=== PATIENT | male | born 1980 | race Caucasian/White ===

== ENCOUNTER 2018-12-08 18:49 | Emergency (ER) | payer OTHER, SELFPAY ==
[~2018-12-08] VITALS: Ht 180.3 cm; Wt 130.9 kg
[~2018-12-08 18:49] MED LIST: AUGM875T27 PO; CELE1CAP4 PO; NEUR600T PO; OXYC-208 PO
[2018-12-08 19:38] LABS: BASO # 0.1 10^3/uL (0.0-0.2); BASO % 0.6 % (0.0-1.0); EOS # 0.3 10^3/uL (0.0-0.5); EOS % 3.1 % (0.0-3.0); HEMATOCRIT 41.8 % (42.0-52.0); HEMOGLOBIN 14.3 g/dl (13.5-17.5); LYMPH % 28.9 % (24.0-44.0); MEAN CORPUSCULAR HEMOGLOBIN 29.7 pg (27.0-33.0); MEAN CORPUSCULAR HGB CONC 34.2 g/dl (32.0-36.5); MEAN CORPUSCULAR VOLUME 86.9 fl (80.0-96.0); MONO # 0.7 10^3/uL (0.0-0.8); MONO % 6.6 % (0.0-5.0); NEUTROPHILS # 6.2 10^3/uL (1.5-8.5); NEUTROPHILS % 60.4 % (36.0-66.0); PLATELET COUNT, AUTOMATED 272 10^3/uL (150-450); RED BLOOD COUNT 4.81 10^6/uL (4.30-6.10); WHITE BLOOD COUNT 10.3 10^3/uL (4.0-10.0)
[2018-12-08] MEDS: GASTROGRAFIN SOLUTION 30ML PO SCH ×2 (19:51→20:24)
[2018-12-08 20:03] LABS: ALBUMIN 3.8 GM/DL (3.2-5.2); ALT/SGPT 38 U/L (12-78); AMYLASE 35 U/L (25-115); BILIRUBIN,DIRECT < 0.1 MG/DL (0.0-0.2); BILIRUBIN,TOTAL 0.3 MG/DL (0.2-1.0); BLOOD UREA NITROGEN 10 MG/DL (7-18); CALCIUM LEVEL 8.8 MG/DL (8.5-10.1); CARBON DIOXIDE LEVEL 27 MEQ/L (21-32); CHLORIDE LEVEL 107 MEQ/L (98-107); CREATININE FOR GFR 0.89 MG/DL (0.70-1.30); GLOMERULAR FILTRATION RATE > 60.0 (>60); GLUCOSE, FASTING 92 MG/DL (70-100); LIPASE 87 U/L (73-393); POTASSIUM SERUM 3.5 MEQ/L (3.5-5.1); SODIUM LEVEL 140 MEQ/L (136-145); TOTAL PROTEIN 7.2 GM/DL (6.4-8.2)
[2018-12-08] MEDS ORDERED: ISOVUE-370 76% 100ML VIAL (Q9967) As Ordered ONE (20:57)
--- NOTE | 2018-12-08 22:24 | REPVR ---
EXAM: CT Abdomen and Pelvis With Contrast EXAM DATE/TIME: 12/08/2018 8:59 PM CLINICAL HISTORY: 38 years old, male; Abdominal pain; Periumbilical; Additional info: Periumbilical, llq pain TECHNIQUE: Imaging protocol: Computed tomography of the abdomen and pelvis with intravenous contrast. Radiation optimization: All CT scans at this facility use at least one of these dose optimization techniques: automated exposure control; mA and/or kV adjustment per patient size (includes targeted exams where dose is matched to clinical indication); or iterative reconstruction. Contrast material: ISOVUE 370; Contrast volume: 100 ml; Contrast route: IV; COMPARISON: CT ABD PELVIS WITH CONTRAST 02/20/2013 7:58 PM FINDINGS: Liver: The liver attenuation is 52 Hounsfield units and the spleen is 79 Hounsfield units. Gallbladder and bile ducts: The gallbladder is contracted with no stones. Pancreas: Normal. No ductal dilation. Spleen: Normal. No splenomegaly. Adrenals: Normal. No mass. Kidneys and ureters: Normal. No hydronephrosis. Stomach and bowel: There are a few sigmoid diverticula without diverticulitis. Appendix: There are no changes of appendicitis. A normal appendix is not seen. Intraperitoneal space: Unremarkable. No free air. No significant fluid collection. Vasculature: Unremarkable. No abdominal aortic aneurysm. Lymph nodes: Mild fat filled right periumbilical hernia with mild surrounding induration and a lymph node measuring 13 x 9 x 11 mm. There is adjacent minimal fat filled umbilical hernia which is compressed toward the left. Bladder: Unremarkable as visualized. Reproductive: Unremarkable as visualized. Bones/joints: Unremarkable. No acute fracture. Soft tissues: See Lymph Nodes Finding. IMPRESSION: 1. Mild fat filled right periumbilical hernia which is new since 02/20/2013. There is surrounding induration and slight induration of the fat within may reflect fat ischemia or infarct. There is a slightly prominent node at the cephalad aspect reactive. There is some associated skin thickening around the umbilicus and cellulitis is not excluded. 2. There are a few sigmoid diverticula without diverticulitis. Electronically signed by: Norbert Escobar On 12/08/2018 22:24:00 PM
[2018-12-08 23:38] VITALS: BP 145/78
== END 2018-12-08 23:39 | disposition home or self-care (01) ==
LOC: M ED 18:49
DX: K42.9 Umbilical hernia without obstruction or gangrene (principal); K57.32 Diverticulitis of large intestine without perforation or abscess without bleeding; Z79.899 Other long term (current) drug therapy
CPT/HCPCS: 74177; 80048; 80076; 81001; 82150; 83690; 85025; 87507; 99284; Q9963; Q9967

== ENCOUNTER → 2019-01-05 | Outpatient (CLI) | payer MEDICAID ==
--- NOTE | 2019-01-05 21:11 | ECGEPIP ---
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
== END ==
LOC: M EKG 10:02
PROVIDERS: ATTEND Anesthesiology
DX: Z01.818 Encounter for other preprocedural examination (principal); G47.30 Sleep apnea, unspecified

== ENCOUNTER 2019-01-09 07:39 | Day surgery (SDC) | payer MEDICAID ==
[~2019-01-09] VITALS: Ht 180.3 cm; Wt 132.9 kg
[~2019-01-09 07:39] MED LIST changes: +LR 1,000 ML IV ONE; +ceFAZolin SOD 2 GM in IV 1 EA IV ONE
[2019-01-09] MEDS ORDERED: BUPIVACAINE LIPOSOME/PF 1.3% 20ML VIAL (13.3MG/ML)(EXPAREL)(C9290 PER1MG) As Ordered ONE (07:51)
[2019-01-09] MEDS ORDERED: LIDOCAINE 1% SDV INJ 30 ML VIAL As Ordered ONE (07:51)
[2019-01-09] MEDS ORDERED: BUPIVACAINE HCL 0.25% 30 ML VIAL As Ordered ONE (07:51)
[2019-01-09] MEDS ORDERED: PROPOFOL 200 MG/20 ML VIAL As Ordered ONE (09:22)
[2019-01-09] MEDS ORDERED: dexameTHASONE 4 MG/ML 1ML VIAL (J1100) As Ordered ONE (09:22)
[2019-01-09] MEDS ORDERED: BUPIVACAINE HCL 0.25% 10 ML VIAL As Ordered ONE (09:22)
[2019-01-09] MEDS ORDERED: fentaNYL 100 MCG/2 ML INJECTION (J3010) As Ordered ONE ×2 (09:22→11:37)
[2019-01-09] MEDS ORDERED: MIDAZOLAM INJ 2 MG/2 ML VIAL (J2250) As Ordered ONE (09:22)
[2019-01-09] MEDS ORDERED: LIDOCAINE 2% INJ 100 MG/5 ML SDV (FOR ANES.) As Ordered ONE (09:22)
[2019-01-09] MEDS ORDERED: ROCURONIUM BROMIDE 50 MG/5 ML VIAL As Ordered ONE ×2 (09:22→09:38)
[2019-01-09] MEDS ORDERED: ONDANSETRON 4MG/2ML VIAL (J2405) As Ordered ONE ×2 (09:33→09:53)
[2019-01-09] MEDS ORDERED: HYDROmorphone HCL 2 MG/ML 1ML VIAL (J1170) As Ordered ONE (09:36)
[2019-01-09] MEDS ORDERED: KETOROLAC 60 MG/2 ML VIAL (J1885) As Ordered ONE (09:53)
[2019-01-09] MEDS ORDERED: SUGAMMADEX SODIUM 500 MG/5 ML VIAL (BRIDION) As Ordered ONE (09:53)
[2019-01-09] MEDS ORDERED: GLYCOPYRROLATE INJ 0.2 MG/ML 2 ML VIAL As Ordered ONE (10:03)
[2019-01-09] MEDS: fentaNYL 100 MCG/2 ML INJECTION (J3010) IV PRN ×4 (11:42→11:57)
[2019-01-09] MEDS ORDERED: ONDANSETRON 4MG/2ML VIAL (J2405) IV PRN ×2 (12:00→17:00)
[2019-01-09] MEDS ORDERED: LR 1,000 ML IV SCH (12:00)
[2019-01-09] MEDS ORDERED: METOCLOPRAMIDE INJ 10MG/2ML VIAL (J2765) IV PRN (12:00)
[2019-01-09] MEDS: PERCOCET 5MG/325MG TAB PO PRN ×2 (12:09→12:38)
--- NOTE | 2019-01-09 12:26 | ROOPDOC ---
[facility] Report Of Operation Report of Operation DATE OF PROCEDURE: 01/09/19 PREPROCEDURE DIAGNOSES: Umbilical hernia, morbid obesity BMI of 40.9. POSTPROCEDURE DIAGNOSES: Umbilical hernia, midline diastases rectus muscle, m orbid obesity. PROCEDURE: Robotic-assisted laparoscopic umbilical hernia repair with placement of preperitoneal mesh (rTAPP). Transabdominal pre-peritoenal plane block (HAKEEM) with Exparel and Marcaine SURGEON: Giovany Olivia MD BASEBALL GLOVE SHAPER: KILO Smyth MS. assisted me with placement of ports, managing the robotic instruments, mesh on the few while I was scrubbed out in the surgeon's console ANESTHESIA: General anesthesia. ESTIMATED BLOOD LOSS: Approximately 10 mL. COMPLICATIONS: None. REMARKS: 38-year-old male BMI 40.9 having more discomfort related to his umbilical hernia, also reports transient incarceration of the hernia with resulting pain PROCEDURE NOTE: Omentum was incarcerated in the umbilical defect. Roughly 2 cm anterior fascial defect was measured after preperitoneal dissection. He also has about a 6-7 cm wide diastases of the midline upper abdominal muscles. A 10 x 10 cm Parietex Progrip mesh was placed in the preperitoneal plane. DESCRIPTION OF PROCEDURE: Patient was given a dose of 2 g Ancef IV preoperatively for wound prophylaxis. He was brought to the operating room and placed supine on the table. Compression boots and teds were placed on both lower extremities for DVT prophylaxis. General endotracheal anesthesia was administered. He was positioned on the table, left arm was tucked, the right arm placed on an arm board. All bony prominences were padded. The abdomen was prepped from xiphoid to pubis and table to table with chlorhexidine. The patient was draped in the usual sterile fashion. Timeout were performed using both preinduction and pre-incision safety checklist to verify correct patient, procedure site and additional clinical information prior to beginning the procedure. Entry into the abdomen done through a small incision on the left upper quadrant area close to the subcostal line close to the anterior axillary line. The fascia was elevated and Veress needle inserted in a controlled fashion. I was having difficulty getting into the right plane inside of the abdomen due to the depth of the patient's subcutaneous tissue. This point I chose to do a direct trocar first entry with an optical 5 mm trocar (Spottlyi flex 5 mm trocar) once as inside the abdomen and began insufflation. It turns out that I was underneath the omentum and it pulled back a little bit get into the correct space and continued insufflating the abdomen. I examined the area underneath the insertion site as well as where the omentum was traversed and there was no bleeding nor any signs of bowel injury. The omentum was being pulled anteriorly because of the presence of the umbilical hernia where there is a tongue of omentum that is incarcerated within the hernia defect.. The abdomen was insufflated to a pressure of 15 mmHg. patient was repositioned slight Trendelenburg tilted towards the right side. The robotic trochars were placed under direct vision as far laterally as we can get above the bowels over the left axillary line with the lowest-most port in front of the anterior superior i liac spine. The previous 5 mm port was replaced with an 8 mm port. The [employer]izra Laura Xi robot tower was then positioned in place to center on these trochars. The trochars were docked to the robot and the camera and instruments installed. I primarily used the forced bipolar forceps on my left hand connected to bipolar cautery and the robotic scissors connected to a monopolar cautery with an 8 mm laparoscope pointed 30 deg upwards. I scrubbed out and to control of the camera and instruments at the surgeon's console. I opened up a preperitoneal pocket on the left side of the abdomen of the about 5 cm away from the umbilicus. This was expanded going towards the umbilical hernia. The preperitoneal fat tissue that was within the hernia defect was reduced and the sac included with it. The peritoneal flap was extended circumferentially to create an adequate space for mesh placement. The hernia defect was measured as 2 x 2 cm. There is noticeable 6 cm diastases above the umbilical hernia defect. I closed the hernia defect along with portion of the diastases roughly 2-3 cms above and below the umbilical cleft with a running suture of 0 Stratafix while reducing the pressure to as low as 10 mmHg. I then have my photo studio assistant trim a 10x10 cm piece of a Parietex Progrip mesh (15x 10 cms) and marked the center of the mesh placement. This was inserted into the abdomen and placed within the pocket abutting the posterior abdominal wall. The mesh was flattened to the anterior abdominal wall centering on the umbilical hernia repair. The pocket was enlarged to accommodate the mesh. Once this is done the peritoneal flap was closed with a running suture of 2-0 V LOC with the abdominal pressure at 12 mmHg.. I inspected the peritoneal flap for any defect during the dissection and a small rent in the peritoneum was repaired with a 3- 0 vicryl suture. I scrubbed back in. I placed roughly about 20 mL mixture of 1/4% Marcaine and Exparel at the preperitoneal space on both sides of the abdomen in between the left costal margin and anterior superior iliac spine under direct visualization of the laparoscope for a transabdominal preperitoneal block. Patient was then repositioned with a slight Trendelenburg positioning and tilted towards the right side to move bowels away from the left sidewall. The instruments and trochars were undocked to the da Laura robot tower. The abdomen was deflated. All ports were removed. The 8 mm trocar sites were closed with 4-0 Monocryl in a subcuticular fashion. Dermabond was used for dressing on top of the incisions. Patient was then promptly awakened, extubated and brought to the recovery room stable. GIOVANY OLIVIA MD Jan 09, 2019 12:26
[2019-01-09] MEDS ORDERED: NORCO, ANEXSIA 5/325MG TABLET (HYDROcodone/ACETAMINOPHEN) PO PRN ×2 (12:30)
[2019-01-09 13:50] VITALS: BP 132/72
[2019-01-09] MEDS ORDERED: KETOROLAC 30 MG/ML VIAL (J1885) IV PRN (17:00)
== END 2019-01-09 13:56 | disposition home or self-care (01) ==
LOC: M SDC 07:39
PROVIDERS: ATTEND Surgery
DX: K42.9 Umbilical hernia without obstruction or gangrene (principal); M62.08 Separation of muscle (nontraumatic), other site; E66.01 Morbid (severe) obesity due to excess calories; G47.30 Sleep apnea, unspecified
CPT/HCPCS: 49652; C1781; C9290; J0690; J1100; J1170; J1885; J2250; J2405; J3010

== ENCOUNTER → 2019-12-12 | Outpatient (CLI) | payer OTHER ==
[~2019-12-12] MED LIST changes: -LR 1,000 ML IV ONE; -ceFAZolin SOD 2 GM in IV 1 EA IV ONE
--- NOTE | 2019-12-26 11:26 | REP ---
LIMITED ABDOMINAL ULTRASOUND CLINICAL: Prior hernia repair with continued pain. TECHNIQUE: Real-time smith scale ultrasound examination using linear high frequency transducer. FINDINGS: Directed ultrasound examination in the periumbilical region at the site of prior umbilical hernia repair demonstrates normal subcutaneous tissue and no evidence for hernia recurrence, fluid collection, hematoma, or obvious abnormality. IMPRESSION: Normal examination without evidence for recurrent hernia or fluid collection/hematoma. MTDD
== END ==
LOC: M RAD 07:55
PROVIDERS: ATTEND Nurse Practitioner Family
DX: S39.91XA Unspecified injury of abdomen, initial encounter (principal); X58.XXXA Exposure to other specified factors, initial encounter; Y92.9 Unspecified place or not applicable; Z87.19 Personal history of other diseases of the digestive system

== ENCOUNTER → 2020-03-02 | Outpatient (REF) | payer MEDICAID ==
[2020-03-02 11:48] LABS: BASO # 0.1 10^3/uL (0.0-0.2); BASO % 0.9 % (0.0-1.0); EOS # 0.3 10^3/uL (0.0-0.5); EOS % 3.9 % (0.0-3.0); HEMATOCRIT 45.6 % (42.0-52.0); HEMOGLOBIN 14.7 g/dl (13.5-17.5); LYMPH # 2.3 10^3/uL (1.5-5.0); LYMPH % 29.3 % (24.0-44.0); MEAN CORPUSCULAR HEMOGLOBIN 28.4 pg (27.0-33.0); MEAN CORPUSCULAR HGB CONC 32.2 g/dl (32.0-36.5); MONO # 0.5 10^3/uL (0.0-0.8); MONO % 6.6 % (0.0-5.0); NEUTROPHILS # 4.6 10^3/uL (1.5-8.5); NEUTROPHILS % 58.7 % (36.0-66.0); PLATELET COUNT, AUTOMATED 287 10^3/uL (150-450); RED BLOOD COUNT 5.18 10^6/uL (4.30-6.10); WHITE BLOOD COUNT 7.9 10^3/uL (4.0-10.0)
[2020-03-02 12:07] LABS: HEMOGLOBIN A1c 5.8 %
[2020-03-02 12:50] LABS: ALBUMIN 3.9 GM/DL (3.2-5.2); ALT/SGPT 53 U/L (12-78); BILIRUBIN,TOTAL 0.3 MG/DL (0.2-1.0); BLOOD UREA NITROGEN 15 MG/DL (7-18); CALCIUM LEVEL 8.8 MG/DL (8.5-10.1); CARBON DIOXIDE LEVEL 27 MEQ/L (21-32); CHLORIDE LEVEL 107 MEQ/L (98-107); CHOLESTEROL LEVEL 226 MG/DL (<200); CHOLESTEROL RISK RATIO 4.808 (<5); CREATININE FOR GFR 0.92 MG/DL (0.70-1.30); GLOMERULAR FILTRATION RATE > 60.0 (>60); GLUCOSE, FASTING 118 MG/DL (70-100); HDL CHOLESTEROL 47 MG/DL (>40); LDL CHOLESTEROL 148 MG/DL (<100); NON-HDL-C 179 MG/DL; POTASSIUM SERUM 4.4 MEQ/L (3.5-5.1); SODIUM LEVEL 141 MEQ/L (136-145); TOTAL 25(OH) VITAMIN D 42.4 NG/ML (30.0-100.0); TOTAL PROTEIN 7.5 GM/DL (6.4-8.2); TRIGLYCERIDES LEVEL 156 MG/DL (<150)
== END ==
LOC: M LAB REF 11:20
PROVIDERS: ATTEND Nurse Practitioner Family
DX: E55.9 Vitamin D deficiency, unspecified (principal); Z13.9 Encounter for screening, unspecified; F41.8 Other specified anxiety disorders; E66.9 Obesity, unspecified

== ENCOUNTER → 2020-07-07 | Outpatient (REF) | payer OTHER ==
[2020-07-07 12:22] LABS: BASO # 0.1 10^3/uL (0.0-0.2); EOS # 0.3 10^3/uL (0.0-0.5); EOS % 4.4 % (0.0-3.0); HEMATOCRIT 44.8 % (42.0-52.0); HEMOGLOBIN 14.8 g/dl (13.5-17.5); LYMPH # 1.9 10^3/uL (1.5-5.0); LYMPH % 27.7 % (24.0-44.0); MEAN CORPUSCULAR HEMOGLOBIN 28.6 pg (27.0-33.0); MEAN CORPUSCULAR VOLUME 86.5 fl (80.0-96.0); MONO # 0.5 10^3/uL (0.0-0.8); MONO % 7.1 % (2.0-8.0); NEUTROPHILS # 4.1 10^3/uL (1.5-8.5); NEUTROPHILS % 59.5 % (36.0-66.0); PLATELET COUNT, AUTOMATED 277 10^3/uL (150-450); RED BLOOD COUNT 5.18 10^6/uL (4.30-6.10); WHITE BLOOD COUNT 6.9 10^3/uL (4.0-10.0)
[2020-07-07 13:42] LABS: ALBUMIN 4.1 GM/DL (3.2-5.2); ALT/SGPT 42 U/L (12-78); BILIRUBIN,TOTAL 0.2 MG/DL (0.2-1.0); BLOOD UREA NITROGEN 17 MG/DL (7-18); CALCIUM LEVEL 9.2 MG/DL (8.5-10.1); CARBON DIOXIDE LEVEL 23 MEQ/L (21-32); CHLORIDE LEVEL 108 MEQ/L (98-107); CHOLESTEROL LEVEL 187 MG/DL (<200); CHOLESTEROL RISK RATIO 3.978 (<5); CREATININE FOR GFR 0.73 MG/DL (0.70-1.30); GLOMERULAR FILTRATION RATE > 60.0 (>60); GLUCOSE, FASTING 115 MG/DL (70-100); HDL CHOLESTEROL 47 MG/DL (>40); LDL CHOLESTEROL 117 MG/DL (<100); NON-HDL-C 140 MG/DL; SODIUM LEVEL 140 MEQ/L (136-145); TOTAL 25(OH) VITAMIN D 26.6 NG/ML (30.0-100.0); TOTAL PROTEIN 7.3 GM/DL (6.4-8.2); TRIGLYCERIDES LEVEL 116 MG/DL (<150)
[2020-07-07 13:44] LABS: HEMOGLOBIN A1c 5.3 %
== END ==
LOC: M LAB REF 11:33
PROVIDERS: ATTEND Nurse Practitioner Family
DX: E66.01 Morbid (severe) obesity due to excess calories (principal); E78.5 Hyperlipidemia, unspecified; F41.3 Other mixed anxiety disorders; R73.03 Prediabetes

== ENCOUNTER → 2020-09-08 | Outpatient (CLI) | payer OTHER ==
[~2020-09-08] MED LIST changes: +D31000TA2; +ZOLO100T
[2020-09-08 16:31] LABS: BASO # 0.1 10^3/uL (0.0-0.2); BASO % 0.6 % (0.0-1.0); EOS # 0.4 10^3/uL (0.0-0.5); EOS % 4.5 % (0.0-3.0); HEMATOCRIT 43.9 % (42.0-52.0); HEMOGLOBIN 14.3 g/dl (13.5-17.5); LYMPH # 3.1 10^3/uL (1.5-5.0); LYMPH % 38.4 % (24.0-44.0); MEAN CORPUSCULAR HEMOGLOBIN 28.5 pg (27.0-33.0); MEAN CORPUSCULAR HGB CONC 32.6 g/dl (32.0-36.5); MEAN CORPUSCULAR VOLUME 87.5 fl (80.0-96.0); MONO # 0.5 10^3/uL (0.0-0.8); MONO % 6.4 % (2.0-8.0); PLATELET COUNT, AUTOMATED 279 10^3/uL (150-450); RED BLOOD COUNT 5.02 10^6/uL (4.30-6.10)
[2020-09-08 17:19] LABS: ALBUMIN 4.2 GM/DL (3.2-5.2); ALT/SGPT 42 U/L (12-78); BILIRUBIN,TOTAL 0.3 MG/DL (0.2-1.0); BLOOD UREA NITROGEN 11 MG/DL (7-18); CALCIUM LEVEL 8.9 MG/DL (8.5-10.1); CARBON DIOXIDE LEVEL 25 MEQ/L (21-32); CHLORIDE LEVEL 107 MEQ/L (98-107); CREATININE FOR GFR 0.72 MG/DL (0.70-1.30); GLOMERULAR FILTRATION RATE > 60.0 (>60); GLUCOSE, FASTING 78 MG/DL (70-100); POTASSIUM SERUM 3.9 MEQ/L (3.5-5.1); SODIUM LEVEL 139 MEQ/L (136-145); TOTAL PROTEIN 7.1 GM/DL (6.4-8.2)
== END ==
LOC: M WUC 13:51
PROVIDERS: ATTEND Nurse Practitioner Family
DX: R10.811 Right upper quadrant abdominal tenderness (principal)

== ENCOUNTER 2021-01-13 09:25 | Emergency (ER) | payer OTHER ==
[~2021-01-13] VITALS: Ht 180.3 cm; Wt 118.6 kg
--- OUTSIDE RECORDS SUMMARY | 2021-01-13 09:32 | CCD ---
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 Vertical Name Role Phone Manasa Reeves NP Unavailable Unavailable Manasa Reeves NP Unavailable Unavailable Manasa Reeves NP Unavailable Unavailable Manasa Reeves NP Unavailable Unavailable Manasa Reeves NP Unavailable Unavailable Reeves, Manasa DIRECTOR OF TEACHER EDUCATION Unavailable Unavailable Reeves, Manasa DIRECTOR OF TEACHER EDUCATION Unavailable Unavailable Reeves, Manasa DIRECTOR OF TEACHER EDUCATION Unavailable Unavailable Reeves, Manasa DIRECTOR OF TEACHER EDUCATION Unavailable Unavailable Reeves, Manasa DIRECTOR OF TEACHER EDUCATION Unavailable Unavailable Reeves, Manasa DIRECTOR OF TEACHER EDUCATION Unavailable Unavailable Reeves, Manasa DIRECTOR OF TEACHER EDUCATION Unavailable Unavailable Reeves, Manasa DIRECTOR OF TEACHER EDUCATION Unavailable Unavailable Abran, Zara SOCIAL SCIENCE PROFESSOR SOCIAL SCIENCE PROFESSOR Unavailable Unavailable [place], A Zara SOCIAL SCIENCE PROFESSOR Unavailable Unavailable [place], A Zara SOCIAL SCIENCE PROFESSOR Unavailable Unavailable [place], A Zara SOCIAL SCIENCE PROFESSOR Unavailable Unavailable [place], A Zara SOCIAL SCIENCE PROFESSOR Unavailable Unavailable [place], A Zara SOCIAL SCIENCE PROFESSOR Unavailable Unavailable [place], A Zara SOCIAL SCIENCE PROFESSOR Unavailable Unavailable [place], A Zara SOCIAL SCIENCE PROFESSOR Unavailable Unavailable [place], A Zara SOCIAL SCIENCE PROFESSOR Unavailable Unavailable [place], A Zara SOCIAL SCIENCE PROFESSOR Unavailable Unavailable [place], A Zara SOCIAL SCIENCE PROFESSOR Unavailable Unavailable [place], A Zara SOCIAL SCIENCE PROFESSOR Unavailable Unavailable [place], A Zraa SOCIAL SCIENCE PROFESSOR Unavailable Unavailable [place], A Zara SOCIAL SCIENCE PROFESSOR Unavailable Unavailable [place], A Zara SOCIAL SCIENCE PROFESSOR Unavailable Unavailable [place], A Zara SOCIAL SCIENCE PROFESSOR Unavailable Unavailable [place], A Zara SOCIAL SCIENCE PROFESSOR Unavailable Unavailable [place], A Zara SOCIAL SCIENCE PROFESSOR Unavailable Unavailable [place], A Zara SOCIAL SCIENCE PROFESSOR Unavailable Unavailable [place], A Zara SOCIAL SCIENCE PROFESSOR Unavailable Unavailable [place], A Zara SOCIAL SCIENCE PROFESSOR Unavailable Unavailable [place], A Zara SOCIAL SCIENCE PROFESSOR Unavailable Unavailable [place], A Zara SOCIAL SCIENCE PROFESSOR Unavailable Unavailable [place], A Zara SOCIAL SCIENCE PROFESSOR Unavailable Unavailable [place], A Zara SOCIAL SCIENCE PROFESSOR Unavailable Unavailable [place], A Zara SOCIAL SCIENCE PROFESSOR Unavailable Unavailable [place], A Zara SOCIAL SCIENCE PROFESSOR Unavailable Unavailable [place], A Zara SOCIAL SCIENCE PROFESSOR Unavailable Unavailable [place], A Zara SOCIAL SCIENCE PROFESSOR Unavailable Unavailable [place], A Zara SOCIAL SCIENCE PROFESSOR Unavailable Unavailable [place], A Zara SOCIAL SCIENCE PROFESSOR Unavailable Unavailable [place], A Zara SOCIAL SCIENCE PROFESSOR Unavailable Unavailable [place], A Zara SOCIAL SCIENCE PROFESSOR Unavailable Unavailable [place], A Zara SOCIAL SCIENCE PROFESSOR Unavailable Unavailable [place], A Zara SOCIAL SCIENCE PROFESSOR Unavailable Unavailable [place], A Zara SOCIAL SCIENCE PROFESSOR Unavailable Unavailable [place], A Zara SOCIAL SCIENCE PROFESSOR Unavailable Unavailable [place], A Zara SOCIAL SCIENCE PROFESSOR Unavailable Unavailable [place], A Zara SOCIAL SCIENCE PROFESSOR Unavailable Unavailable [place], A Zara SOCIAL SCIENCE PROFESSOR Unavailable Unavailable [place], A Zara SOCIAL SCIENCE PROFESSOR Unavailable Unavailable [place], A Zara SOCIAL SCIENCE PROFESSOR Unavailable Unavailable [place], A Zara SOCIAL SCIENCE PROFESSOR Unavailable Unavailable Abran, A Zara SOCIAL SCIENCE PROFESSOR Unavailable Unavailable Abran, A Zara SOCIAL SCIENCE PROFESSOR Unavailable Unavailable Abran, A Zara SOCIAL SCIENCE PROFESSOR Unavailable Unavailable Abran, A Zara SOCIAL SCIENCE PROFESSOR Unavailable Unavailable Abran, A Zara SOCIAL SCIENCE PROFESSOR Unavailable Unavailable Abran, A Zara SOCIAL SCIENCE PROFESSOR Unavailable Unavailable Abran, A Zara SOCIAL SCIENCE PROFESSOR Unavailable Unavailable Abran, A Zara SOCIAL SCIENCE PROFESSOR Unavailable Unavailable Abran, A Zara SOCIAL SCIENCE PROFESSOR Unavailable Unavailable Abran, A Zara SOCIAL SCIENCE PROFESSOR Unavailable Unavailable Abran, A Zara SOCIAL SCIENCE PROFESSOR Unavailable Unavailable Abran, A Zara SOCIAL SCIENCE PROFESSOR Unavailable Unavailable Abran, A Zara SOCIAL SCIENCE PROFESSOR Unavailable Unavailable Abran, A Zara SOCIAL SCIENCE PROFESSOR Unavailable Unavailable Abran, A Zara SOCIAL SCIENCE PROFESSOR Unavailable Unavailable Abran, A Zara SOCIAL SCIENCE PROFESSOR Unavailable Unavailable Abran, A Zara SOCIAL SCIENCE PROFESSOR Unavailable Unavailable Abran, A Zara SOCIAL SCIENCE PROFESSOR Unavailable Unavailable Abran, A Zara SOCIAL SCIENCE PROFESSOR Unavailable Unavailable Abran, A Zara SOCIAL SCIENCE PROFESSOR Unavailable Unavailable Re-disclosure Warning The records that you are about to access may contain information from federally-assisted alcohol or drug abuse programs. If such information is present, then the following federally mandated warning applies: This information has been disclosed to you from records protected by federal confidentiality rules (42 CFR part 2). The federal rules prohibit you from making any further disclosure of this information unless further disclosure is expressly permitted by the written consent of the person to whom it pertains or as otherwise permitted by 42 CFR part 2. A general authorization for the release of medical or other information is NOT sufficient for this purpose. The Federal rules restrict any use of the information to criminally investigate or prosecute any alcohol or drug abuse patient.The records that you are about to access may contain highly sensitive health information, the redisclosure of which is protected by Article 27-F of the [facility] Public Health law. If you continue you may have access to information: Regarding HIV / AIDS; Provided by facilities licensed or operated by the [facility] Office of Mental Health; or Provided by the [facility] Office for People With Developmental Disabilities. If such information is present, then the following [facility] mandated warning applies: This information has been disclosed to you from confidential records which are protected by state law. State law prohibits you from making any further disclosure of this information without the specific written consent of the person to whom it pertains, or as otherwise permitted by law. Any unauthorized further disclosure in violation of state law may result in a fine or senior care sentence or both. A general authorization for the release of medical or other information is NOT sufficient authorization for further disc losure. Family History Family Member Name Family Member Gender Family Member Status Date o f Status Description Data Source(s) Unknown Unknown Problem [facility] ([facility], ) Unknown Unknown Problem [facility] ([facility], ) Unknown Unknown Problem [facility] ([facility], [facility]) Encounters Encounter Providers Location Date Indications Data Source(s ) EDEL Ocampo: [address], [place] [address], Ph. Attender: Zara Osullivan [facility] 09/15/2020 12:00:00 AM EDT [place] ([facility]) Outpatient Attender: Manasa bautista 09/08/2020 01:00:00 PM EDT [facility] ([facility]) OSBALDO Ocampo: [address], [place] [address], Ph. Attender: Zara Osullivan [facility] 07/27/2020 12:00:00 AM EDT [facility]) OSBALDO Ocampo: [address], [place] [address], Ph. Attender: Zara Osullivan [facility] 07/27/2020 12:00:00 AM [facility] OSBALDO Ocampo: [address], [place] [address], Ph. Attender: Zara Osullivan [facility] 07/07/2020 12:00:00 AM EDT [place] ([facility]) Zara Osullivan [facility]: [address], [place] [address], Ph. Attender: Zara Osullivan [facility] 07/07/2020 12:00:00 AM EDT [place] ([facility]) Zara Osullivan [facility]: [address], [place] [address], Ph. Attender: Zara Osullivan [facility] 07/07/2020 12:00:00 AM EDT [place] ([facility]) Zara Osullivan [facility]: [address], [place] [address], Ph. Attender: Zara Osullivan [facility] 03/10/2020 12:00:00 AM EST [place] ([facility]) Zara Osullivan [facility]: [address], [place] [address], Ph. Attender: Zara Osullivan [facility] 03/10/2020 12:00:00 AM EST [place] [facility]) [facility] [address], [place] [address], Ph. Attender: Zara Osullivan [facility] 03/10/2020 12:00:00 AM EST [place] ([facility]) [facility] [address], [place] [address], Ph. Attender: Zara Osullivan [facility] 03/10/2020 12:00:00 AM EST [place] ([facility]) Zara Osullivan [facility]: [address], [place] [address], Ph. Attender: Zara Osullivan [facility] 03/02/2020 12:00:00 AM EST [place] ([facility]) Zara Osullivan [facility]: [address], [place] [address], Ph. Attender: Zara Osullivan [facility] 03/02/2020 12:00:00 AM EST [place] ([facility]) Zara Osullivan [facility]: [address], [place] [address], Ph. Attender: Zara Osullivan [facility] 03/02/2020 12:00:00 AM EST [place] ([facility]) Zara Osullivan [facility]: [address], [place] [address], Ph. Attender: Zara Osullivan [facility] 03/02/2020 12:00:00 AM EST [place] ([facility]) Zara Osullivan [facility]: [address], [place] [address], Ph. Attender: Zara Osullivan [facility] 03/02/2020 12:00:00 AM EST [place] ([facility]) Zara Osullivan [facility]: [address], [place] [address], Ph. Attender: Zara Osullivan [facility] 02/03/2020 12:00:00 AM EST [place] ([facility]) Zara Osullivan [facility]: [address], [place] [address], Ph. Attender: Zara Osullivan [facility] 02/03/2020 12:00:00 AM EST [place] ([facility]) Zara Osullivan [facility]: [address], [place] [address], Ph. Attender: Zara Osullivan [facility] 02/03/2020 12:00:00 AM EST [place] ([facility]) Zara Osullivan [facility]: [address], [place] [address], Ph. Attender: Zara Osullivan [facility] 02/03/2020 12:00:00 AM EST [place] ([facility]) Zara Osullivan [facility]: [address], [place] [address], Ph. Attender: Zara Osullivan [facility] 02/03/2020 12:00:00 AM EST [place] ([facility]) Zara Osullivan [facility]: [address], [place] [address], Ph. Attender: Zara Osullivan [facility] 02/03/2020 12:00:00 AM EST [place] ([facility]) Outpatient Attender: ALEXIA HALE 01/20/2020 02:50:00 P M EDT [facility] Outpatient Attender: ALEXIA HALE 01/13/2020 09:09:01 A M EDT [facility] 01:3 2:00 PM EDT [facility] Outpatient Attender: ALEXIA ROONEY 12/13/2019 08:20:01 A M EDT [facility] 12/10/2019 10:32:00 P M EDT [facility] Outpatient Attender: ALEXIA HAMMERP FP 12/10/2019 09:24:02 A M EDT [facility] Outpatient Attender: ALEXIA HAMMERP [facility] 12/06/2019 03:39:01 P M EDT [facility] Outpatient Attender: ALEXIA HAMMERP [facility] 11/29/2019 11:52:01 A M EDT [facility] Outpatient Attender: Zara HAMMERP [facility] 11/29/2019 11:5 2:00 AM EDT [facility] Outpatient Attender: ALEXIA HAMMERP [facility] 11/22/2019 07:33:01 A M EDT [facility] Outpatient Attender: ALEXIA HALE [facility] 11/15/2019 02:14:00 P M EDT [facility] Outpatient Attender: Zara HAMMERP [facility] 11/15/2019 02:1 3:00 PM EDT [facility]: [facility]/15/2019 08:16:00 A M EDT [facility] Immunizations Vaccine Date Status Description Data Source(s) COVID-19 vaccine, vector-nr, [id number], PF, 0.5 mL 06/03/2020 12:00:00 AM EST completed 06/03/2020 [place] ([facility]) COVID-19 VACCINE [place] 06/03/2020 12:00:00 AM EST completed [facility] Vaccine Series Complete: YESThis Data wa s Submitted to [facility] Via [facility]. Medications Medication Brand Name Start Date Product Form Dose Route Admi nistrative Instructions Pharmacy Instructions Status Indications Reaction Description Data Source(s) 100 mg 10/01/2020 12:00:00 AM EDT tablet 30 TAKE ONE TABLET BY MOUTH EVERY DAY DIRECTED TAKE ONE TABLET BY MOUTH EVERY DAY DIRECTED SOLD: 021 [facility] 100 mg 10/01/2020 12:00:00 AM EDT tablet 30 TAKE ONE TABLET BY MOUTH EVERY DAY DIRECTED TAKE ONE TABLET BY MOUTH EVERY DAY DIRECTED SOLD: 021 [facility] 100 mg 10/01/2020 12:00:00 AM EDT tablet 30 TAKE ONE TABLET BY MOUTH EVERY DAY DIRECTED TAKE ONE TABLET BY MOUTH EVERY DAY DIRECTED SOLD: [facility] 100 mg 10/01/2020 12:00:00 AM EDT tablet 30 TAKE ONE TABLET BY MOUTH EVERY DAY DIRECTED TAKE ONE TABLET BY MOUTH EVERY DAY DIRECTED SOLD: [facility] 500 mg 09/15/2020 12:00:00 AM EDT tablet 14 TAKE 1 TABLET BY MOUTH EVERY 12 HOURS TAKE 1 TABLET BY MOUTH EVERY 12 HOURS SOLD: 09/15/2020 [facility] 100 mg 08/04/2020 12:00:00 AM EDT tablet 30 TAKE ONE TABLET BY MOUTH EVERY DAY DIRECTED TAKE ONE TABLET BY MOUTH EVERY DAY DIRECTED SOLD: [facility] 25 mcg (1,000 unit) 07/28/2020 12:00:00 AM EDT tablet 30 TAKE ONE TABLET BY MOUTH EVERY DAY DIRECTED TAKE ONE TABLET BY MOUTH EVERY DAY DIRECTED SOLD: 09/28/2020 [facility] 25 mcg (1,000 unit) 07/28/2020 12:00:00 AM EDT tablet 30 TAKE ONE TABLET BY MOUTH EVERY DAY DIRECTED TAKE ONE TABLET BY MOUTH EVERY DAY DIRECTED SOLD: 10/31/2020 [facility] 25 mcg (1,000 unit) 07/28/2020 12:00:00 AM EDT tablet 30 TAKE ONE TABLET BY MOUTH EVERY DAY DIRECTED TAKE ONE TABLET BY MOUTH EVERY DAY DIRECTED SOLD: 07/31/2020 [facility] 25 mcg (1,000 unit) 07/28/2020 12:00:00 AM EDT tablet 30 TAKE ONE TABLET BY MOUTH EVERY DAY DIRECTED TAKE ONE TABLET BY MOUTH EVERY DAY DIRECTED SOLD: 01/04/2021 [facility] 100 mg 04/03/2020 12:00:00 AM EST tablet 30 TAKE ONE TABLET BY MOUTH EVERY DAY DIRECTED TAKE ONE TABLET BY MOUTH EVERY DAY DIRECTED SOLD: [facility] 100 mg 04/03/2020 12:00:00 AM EST tablet 30 TAKE ONE TABLET BY MOUTH EVERY DAY DIRECTED TAKE ONE TABLET BY MOUTH EVERY DAY DIRECTED SOLD: [facility] 100 mg 04/03/2020 12:00:00 AM EST tablet 30 TAKE ONE TABLET BY MOUTH EVERY DAY DIRECTED TAKE ONE TABLET BY MOUTH EVERY DAY DIRECTED SOLD: [facility] 100 mg 04/03/2020 12:00:00 AM EST tablet 30 TAKE ONE TABLET BY MOUTH EVERY DAY DIRECTED TAKE ONE TABLET BY MOUTH EVERY DAY DIRECTED SOLD: [facility] 100 mg 04/03/2020 12:00:00 AM EST tablet 30 TAKE ONE TABLET BY MOUTH EVERY DAY DIRECTED TAKE ONE TABLET BY MOUTH EVERY DAY DIRECTED SOLD: [facility] 25 mcg (1,000 unit) 03/11/2020 12:00:00 AM EST tablet 30 TAKE ONE TABLET BY MOUTH EVERY DAY DIRECTED TAKE ONE TABLET BY MOUTH EVERY DAY DIRECTED SOLD: 03/11/2020 [facility] 25 mcg (1,000 unit) 03/11/2020 12:00:00 AM EST tablet 30 TAKE ONE TABLET BY MOUTH EVERY DAY DIRECTED TAKE ONE TABLET BY MOUTH EVERY DAY DIRECTED SOLD: 04/12/2020 [facility] 25 mcg (1,000 unit) 03/11/2020 12:00:00 AM EST tablet 30 TAKE ONE TABLET BY MOUTH EVERY DAY DIRECTED TAKE ONE TABLET BY MOUTH EVERY DAY DIRECTED SOLD: 05/15/2020 [facility] 25 mcg (1,000 unit) 03/11/2020 12:00:00 AM EST tablet 30 TAKE ONE TABLET BY MOUTH EVERY DAY DIRECTED TAKE ONE TABLET BY MOUTH EVERY DAY DIRECTED SOLD: 06/24/2020 [facility] 100 mg 02/04/2020 12:00:00 AM EST tablet 30 TAKE ONE TABLET BY MOUTH EVERY DAY DIRECTED TAKE ONE TABLET BY MOUTH EVERY DAY DIRECTED SOLD: [facility] 1,250 mcg (50,000 unit) 12/10/2019 12:00:00 AM EDT capsule 4 TAKE 1 CAPSULE BY MOUTH ONCE WEEKLY FOR 12 WEEKS THEN CHANGE TO 1000 UNIT TABLET ONCE DAILY THEREAFTER TAKE 1 CAPSULE BY MOUTH ONCE WEEKLY FOR 12 WEEKS THEN CHANGE TO 1000 UNIT TABLET ONCE DAILY THEREAFTER SOLD: 02/02/2020 [facility] 50 mg 12/10/2019 12:00:00 AM EDT tablet 30 TAKE ONE TABLET BY MOUTH EVERY DAY TAKE ONE TABLET BY MOUTH EVERY DAY SOLD: 12/10/2019 [facility] 1,250 mcg (50,000 unit) 12/10/2019 12:00:00 AM EDT capsule 4 TAKE 1 CAPSULE BY MOUTH ONCE WEEKLY FOR 12 WEEKS THEN CHANGE TO 1000 UNIT TABLET ONCE DAILY THEREAFTER TAKE 1 CAPSULE BY MOUTH ONCE WEEKLY FOR 12 WEEKS THEN CHANGE TO 1000 UNIT TABLET ONCE DAILY THEREAFTER SOLD: 12/10/2019 [facility] 1,250 mcg (50,000 unit) 12/10/2019 12:00:00 AM EDT capsule 4 TAKE 1 CAPSULE BY MOUTH ONCE WEEKLY FOR 12 WEEKS THEN CHANGE TO 1000 UNIT TABLET ONCE DAILY THEREAFTER TAKE 1 CAPSULE BY MOUTH ONCE WEEKLY FOR 12 WEEKS THEN CHANGE TO 1000 UNIT TABLET ONCE DAILY THEREAFTER SOLD: 01/06/2020 [facility] 50 mg 12/10/2019 12:00:00 AM EDT tablet 30 TAKE ONE TABLET BY MOUTH EVERY DAY TAKE ONE TABLET BY MOUTH EVERY DAY SOLD: 01/06/2020 [facility] Sertraline 50 MG Oral Tablet sertraline 50 mg tablet TAKE ONE TABLET BY MOUTH EVERY DAY sertraline 50 mg tablet TAKE ONE TABLET BY MOUTH EVERY DAY completed sertraline 50 MG Oral Tablet [place] [facility]) Sertraline 50 MG Oral Tablet sertraline 50 mg tablet TAKE ONE TABLET BY MOUTH EVERY DAY sertraline 50 mg tablet TAKE ONE TABLET BY MOUTH EVERY DAY completed sertraline 50 MG Oral Tablet [place] ([facility]) Ibuprofen 600 MG Oral Tablet ibuprofen 600 mg tablet ibuprofen 6 00 mg tablet completed ibuprofen 600 MG Oral Tablet [place] ([facility]) Sertraline 50 MG Oral Tablet sertraline 50 mg tablet TAKE ONE TABLET BY MOUTH EVERY DAY sertraline 50 mg tablet TAKE ONE TABLET BY MOUTH EVERY DAY completed sertraline 50 MG Oral Tablet [place] ([facility]) Penicillin V Potassium 500 MG Oral Tablet penicillin V potassium 500 mg tablet penicillin V potassium 500 mg tablet c ompleted penicillin V potassium 500 MG Oral Tablet [place] [facility]) Penicillin V Potassium 500 MG Oral Tablet penicillin V potassium 500 mg tablet penicillin V potassium 500 mg tablet c ompleted penicillin V potassium 500 MG Oral Tablet [place] ([facility]) Ibuprofen 600 MG Oral Tablet ibuprofen 600 mg tablet ibuprofen 6 00 mg tablet completed ibuprofen 600 MG Oral Tablet [place] ([facility]) vitamin d3 25 mcg (1000 ut) tabs completed vitamin d3 25 mcg (1000 ut) tabs [place] ([facility]) Penicillin V Potassium 500 MG Oral Tablet penicillin V potassium 500 mg tablet penicillin V potassium 500 mg tablet c ompleted penicillin V potassium 500 MG Oral Tablet [place] ([facility]) Ibuprofen 600 MG Oral Tablet ibuprofen 600 mg tablet ibuprofen 6 00 mg tablet completed ibuprofen 600 MG Oral Tablet [place] ([facility]) Penicillin V Potassium 500 MG Oral Tablet penicillin V potassium 500 mg tablet penicillin V potassium 500 mg tablet c ompleted penicillin V potassium 500 MG Oral Tablet [place] ([facility]) Penicillin V Potassium 500 MG Oral Tablet penicillin V potassium 500 mg tablet penicillin V potassium 500 mg tablet c ompleted penicillin V potassium 500 MG Oral Tablet [place] ([facility]) Ibuprofen 600 MG Oral Tablet ibuprofen 600 mg tablet ibuprofen 6 00 mg tablet completed ibuprofen 600 MG Oral Tablet [place] ([facility]) Cholecalciferol 14282 UNT Oral Capsule c holecalciferol (vitamin D3) 1,250 mcg (50,000 unit) capsule cholecalciferol (vitamin D3) 1,250 mcg ( 50,000 unit) capsule completed cholecalcifero l 1.25 MG Oral Capsule [place] ([facility]) Penicillin V Potassium 500 MG Oral Tablet penicillin V potassium 500 mg tablet penicillin V potassium 500 mg tablet c ompleted penicillin V potassium 500 MG Oral Tablet [place] ([facility]) Ibuprofen 600 MG Oral Tablet ibuprofen 600 mg tablet ibuprofen 6 00 mg tablet completed ibuprofen 600 MG Oral Tablet [place] ([facility]) Sertraline 50 MG Oral Tablet sertraline 50 mg tablet TAKE ONE TABLET BY MOUTH EVERY DAY sertraline 50 mg tablet TAKE ONE TABLET BY MOUTH EVERY DAY completed sertraline 50 MG Oral Tablet [place] ([facility]) Ibuprofen 600 MG Oral Tablet ibuprofen 600 mg tablet ibuprofen 6 00 mg tablet completed ibuprofen 600 MG Oral Tablet [place] ([facility]) Insurance Providers Payer name Policy type / Coverage type Policy ID Covered libertarian ID Covered libertarian's relationship to eubanks Policy Eubanks Plan Information [facility] [id number] SP [id number] [facility] Hmo Blue Option Commercial [id number] Self State Ins Fund() Workers Compensation [id number] Self State Ins Fund() Workers Compensation [id number] Self [id number] [facility] COMMUNITY PLAN MCDO [id number] SP [id number] Medicaid S [id number] MEDICAID [id number] SP [id number] EMEDNY [id number] SP [id number] Managed Care - [facility] Community Plan P [id number] S [id number] Medicaid S [id number] S [id number] Managed Care - [facility] P UNAVAILABLE S UNAVAILABLE UNHC COMMUNITY PLAN MCDHMO [id number] SP [id number] STATE INSURANCE FUND [id number] SP [id number] STATE INSURANCE FUND O [id number] S [id number] SELF PAY O [id number] S [id number] [facility] INS FUND [id number] SP [id number] 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 COMP [id number] SP [id number] SELF PAY UNAVAILABLE SP UNAVAILA BLE [facility](MCA[facility]) P [id number] S [id number] UNHC COMMUNITY PLAN MCDO [id number] SP [id number] [facility] PLAN [facility] [id number] SP [id number] EMEDNY [id number] SP [id number] Self Pay P [id number] O [id number] O UNAVAILABLE UNAVAILA BLE SELF PAY ONLY [id number] SP [id number] MEDICAID [id number] SP [id number] [facility] Health Maintenance Organization (O) [id number] Self [id number] UN COMMUNITY PLAN [facility] [id number] SP [id number] [facility] Health Maintenance Organization (HMO) [id number] Self Problems, Conditions, and Diagnoses Code Display Name Description Problem Type Effective Dates Data Source(s) [id number] Body mass index 30+ - obesity Body Mass Index 30+ - Ob esity Problem 07/31/2020 12:00:00 AM EDTanja VALERIO [facility]) [id number] Body mass index 30+ - obesity Body Mass Index 30+ - Ob esity Problem 07/31/2020 12:00:00 AM EDT [place] ([facility]) [id number] Upper abdominal pain, unspecified Upper abdominal pain , unspecified 12/10/2019 10:30:01 PM EDT [facility] [facility] [id number] Hyperlipidemia, unspecified Hyperlipidemia, unspecifie d 12/10/2019 10:30:01 PM EDT [facility] R73.03 Prediabetes Prediabetes 12/10/2019 10:30:01 PM EDT [facility] 268.9 vitamin D deficiency vitamin D deficiency 12/09 09:22:40 AM EDT [facility] V65.8 Person consulting for explanation of exa mination or test findings Person consulting for explanation of examination or test findings 12/10/2019 09:22:40 AM EDT [facility] S39.91xA Unspecified injury of abdomen, initial e ncounter Unspecified injury of abdomen, initial encounter 12/10/2019 09:22:40 AM EDT [facility] [id number] Patient asked to attend Patient Asked to Attend [facility] 12/10/2019 12:00:00 AM EDT [place] ([facility]) [id number] Injury of trunk Injury of Trunk Problem 12/10/2019 12:0 0:00 AM EDT [facility]) [id number] Pain Pain Problem 12/10/2019 12:00:00 AM ED T [facility]) [id number] Prediabetes Prediabetes Problem 12/10/2019 12:00:00 AM EDT [place] ([facility]) [id number] Hyperlipidemia Hyperlipidemia Problem 12/10/2019 12:00: 00 AM EDT [place] ([facility]) [id number] Vitamin D deficiency Vitamin D Deficiency Problem 12/10/2019 12:00:00 AM EDT [place] ([facility]) [id number] Patient asked to attend Patient Asked to Attend [facility] 12/10/2019 12:00:00 AM EDT [place] ([facility]) [id number] Injury of trunk Injury of Trunk Problem 12/10/2019 12:0 0:00 AM EDT [facility]) [id number] Pain Pain Problem 12/10/2019 12:00:00 AM ED T [place] ([facility]) [id number] Prediabetes Prediabetes Problem 12/10/2019 12:00:00 AM EDT [place] ([facility]) [id number] Hyperlipidemia Hyperlipidemia Problem 12/10/2019 12:00: 00 AM EDT [place] ([facility]) 43010352 Vitamin D deficiency Vitamin D Deficiency Problem 12/10/2019 12:00:00 AM EDT [place] ([facility]) [id number] Patient asked to attend Patient Asked to Attend Proble m 12/10/2019 12:00:00 AM EDT [place] ([facility]) [id number] Injury of trunk Injury of Trunk Problem 12/10/2019 12:0 0:00 AM EDT [place] ([facility]) [id number] Pain Pain Problem 12/10/2019 12:00:00 AM ED T [place] ([facility]) [id number] Prediabetes Prediabetes Problem 12/10/2019 12:00:00 AM EDT [place] ([facility]) 12991710 Hyperlipidemia Hyperlipidemia Problem 12/10/2019 12:00: 00 AM EDT [place] ([facility]) 93047810 Vitamin D deficiency Vitamin D Deficiency Problem 12/10/2019 12:00:00 AM EDT [place] ([facility]) 300.02 GENERALIZED ANXIETY DISORDER GENERALIZED ANXIETY DISOR TRACY 11/15/2019 02:12:27 PM EDT [facility] 300.01 PANIC DISORDER PANIC DISORDER 11/15/2019 02:12: 27 PM EDT [facility] [id number] Panic disorder Panic Disorder Problem 11/15/2019 12:00: 00 AM EDT [place] ([facility]) 91901946 Generalized anxiety disorder Generalized Anxiety Disor tracy Problem 11/15/2019 12:00:00 AM EDT [place] ([facility]) [id number] Panic disorder Panic Disorder Problem 11/15/2019 12:00: 00 AM EDT [place] ([facility]) [id number] Generalized anxiety disorder Generalized Anxiety Disor tracy Problem 11/15/2019 12:00:00 AM EDT [place] ([facility]) [id number] Panic disorder Panic Disorder Problem 11/15/2019 12:00: 00 AM EDT [place] ([facility]) 91680838 Generalized anxiety disorder Generalized Anxiety Disor tracy Problem 11/15/2019 12:00:00 AM EDT [place] ([facility]) Surgeries/Procedures No Information Results ID Date Data Source [id number] 09/09/2020 10:05:00 PM EDT [place] ([facility]) Name Value Range Interpretation Code Description Data Juliette rce(s) Supporting Document(s) D-dimer quant < 270 <500 D-dimer Quant [place] ( [facility]) ID Date Data Source [id number] 09/08/2020 01:54:00 PM EDT [facility] ([facility]) Name Value Range Interpretation Code Description Data Juliette rce(s) Supporting Document(s) Glucose, Fasting 78 mg/dL 70-100 [facility] ([facility], [facility]) Blood Urea Nitrogen 11 mg/dL 7-18 [facility] ([facility], [facility]) Creatinine For GFR 0.72 mg/dL 0.70-1.30 [facility] ([facility]) Glomerular Filtration Rate [facility] <content>Units are mL/min/1.73 m2</content>
<content></content>
<content>Chronic Kidney Disease Staging per NKF:</content>
<content></content>
<content>Stage I & II GFR >=60 Normal to Mildly Decreased</content>
<content>Stage III GFR 30-59 Moderately Decreased</content>
<content>Stage IV GFR 15-29 Severely Decreased</content>
<content>Stage V GFR <15 Very Little GFR Left</content>
<content>ESRD GFR <15 on PRESS OPERATOR APPRENTICE</content>
<content></content> Sodium Level 139 meq/L 136-145 [facility] ([facility], [facility]) Chloride Level 107 meq/L 98-107 [facility] ([facility], [facility]) Potassium Serum 3.9 meq/L 3.5-5.1 [facility] ([facility], [facility]) Carbon Dioxide Level 25 meq/L 21-32 [facility] ( [facility]) Anion Gap 7 meq/L 8-16 [facility] ([facility], [facility]) Calcium Level 8.9 mg/dL 8.5-10.1 [facility] ([facility], [facility]) Ast/Sgot 24 U/L 7-37 [facility] ([facility], [facility]) Alt/SGPT 42 U/L 12-78 [facility] ([facility], [facility]) Alkaline Phosphatase 98 U/L 45-117 [facility] ( [facility], [facility]) Bilirubin,Total 0.3 mg/dL 0.2-1.0 [facility] ([facility], [facility]) Total Protein 7.1 GM/DL 6.4-8.2 [facility] ([facility], [facility]) Albumin 4.2 GM/DL 3.2-5.2 [facility] ([facility], [facility]) Albumin/Globulin Ratio 1.4 [facility] ([facility], [facility]) ID Date Data Source [id number] 09/08/2020 01:54:00 PM EDT [facility] ([facility], [facility]) Name Value Range Interpretation Code Description Data Juliette rce(s) Supporting Document(s) Red Blood Count 5.02 10 4.30-6.10 [facility] ([facility], [facility]) White Blood Count 8.0 10 4.0-10.0 [facility] ([facility], [facility]) Hemoglobin 14.3 g/dL 13.5-17.5 [facility] ([facility], [facility]) Mean Corpuscular Volume 87.5 fl 80.0-96.0 M [facility] ([facility], [facility]) Hematocrit 43.9 % 42.0-52.0 [facility] ([facility], [facility]) Mean Corpuscular Hemoglobin 28.5 pg 27.0-33.0 [facility] ([facility], [facility]) Mean Corpuscular HGB Conc 32.6 g/dL 32.0-36.5 [facility] ([facility], [facility]) Red Cell Distribution Width 12.6 % 11.5-14.5 [facility] ([facility], [facility]) Platelet Count, Automated 279 10 150-450 [facility] ([facility], [facility]) [place] % 6.4 % 2.0-8.0 [facility] ([facility], [facility]) Lymph % 38.4 % 24.0-44.0 [facility] ([facility], [facility]) Neutrophils % 50.0 % 36.0-66.0 [facility] ([facility], [facility]) Eos % 4.5 % 0.0-3.0 [facility] ([facility], [facility]) Baso % 0.6 % 0.0-1.0 [facility] ([facility], [facility]) Immature Granulocyte % 0.1 % 0-3.0 [facility] ([facility], [facility]) Nucleated Red Blood Cell % 0.0 % 0-0 [facility] ([facility], [facility]) Neutrophils # 4.0 10 1.5-8.5 [facility] ([facility], [facility]) [place] # 0.5 10 0.0-0.8 [facility] ([facility], [facility]) Lymph # 3.1 10 1.5-5.0 [facility] ([facility], [facility]) Baso # 0.1 10 0.0-0.2 [facility] ([facility], [facility]) Eos # 0.4 10 0.0-0.5 [facility] ([facility], [facility]) ID Date Data Source [id number] 09/08/2020 01:08:00 PM EDT [facility] ([facility], [facility]) Name Value Range Interpretation Code Description Data Juliette rce(s) Supporting Document(s) Bacteria identified in Urine by Culture Laboratory test result [facility] ([facility], [facility]) No rx ID Date Data Source [id number] 07/07/2020 08:24:00 AM EDT [place] ([facility]) Name Value Range Interpretation Code Description Data Juliette rce(s) Supporting Document(s) Hemoglobin A1c/Hemoglobin.total in Blood 5.3 % Hemoglobin a1C [place] ([facility]) estimated average glucose 105 mg/dL 60-110 Estimated Average Glucose [place] ([facility]) ID Date Data Source [id number] 07/07/2020 08:24:00 AM EDT [place] ([facility]) Name Value Range Interpretation Code Description Data Juliette rce(s) Supporting Document(s) total 25(oh) vitamin D 26.6 NG/mL 30.0-100.0 Below low normal T otal 25(Oh) Vitamin D [place] ([facility]) ID Date Data Source [id number] 07/07/2020 08:24:00 AM EDT [place] ([facility]) Name Value Range Interpretation Code Description Data Juliette rce(s) Supporting Document(s) cholesterol level 187 mg/dL <200 Cholesterol Level [place] ([facility]) triglycerides level 116 mg/dL <150 Triglycerides Le thee [place] ([facility]) non-HDL-C 140 mg/dL Non-hdl-c [place] ([facility]) Cholesterol in LDL [Mass/volume] in Serum or Plasma 117 mg/dL <100 Above high normal LDL Cholesterol [place] ([facility]) HDL cholesterol 47 mg/dL >40 HDL Cholesterol [facility] [place] ([facility]) cholesterol risk ratio <5 Cholesterol R isk Ratio [place] ([facility]) ID Date Data Source [id number] 07/07/2020 08:24:00 AM [facility] Name Value Range Interpretation Code Description Data Juliette rce(s) Supporting Document(s) glucose, fasting 115 mg/dL 70-100 Above high normal Glucose, Fas ting [place] ([facility]) blood urea nitrogen 17 mg/dL 7-18 Blood Urea Nitro gen [place] ([facility]) creatinine for GFR 0.73 mg/dL 0.70-1.30 Creatinine for GF R [place] ([facility]) potassium serum 4.0 mEq/L 3.5-5.1 Potassium Serum [facility] [place] ([facility]) glomerular filtration rate > 60.0 >60 Glomerula r Filtration Rate [place] ([facility]) sodium level 140 mEq/L 136-145 Sodium Level [place] ([facility]) chloride level 108 mEq/L 98-107 Above high normal Chloride Level [place] ([facility]) anion gap 9 mEq/L 8-16 Anion Gap [place] ([facility]) carbon dioxide level 23 mEq/L 21-32 Carbon Dioxide Level [place] ([facility]) calcium level 9.2 mg/dL 8.5-10.1 Calcium Level [place] ( [facility]) ALT/SGPT 42 U/L 12-78 ALT/SGPT [place] ([facility]) AST/SGOT 19 U/L 7-37 AST/SGOT [place] ([facility]) bilirubin,total 0.2 mg/dL 0.2-1.0 Bilirubin,total [facility] [place] ([facility]) alkaline phosphatase 101 U/L 45-117 Alkaline Phosph atase [place] ([facility]) total protein 7.3 gm/dL 6.4-8.2 Total Protein [place] ( [facility]) albumin/globulin ratio Albumin/globu blake Ratio [place] ([facility]) albumin 4.1 gm/dL 3.2-5.2 Albumin [place] ([facility]) ID Date Data Source [id number] 07/07/2020 08:24:00 AM EDT [place] ([facility]) Name Value Range Interpretation Code Description Data Juliette rce(s) Supporting Document(s) white blood count 6.9 10 4.0-10.0 White Blood Count [place] ([facility]) red blood count 5.18 10 4.30-6.10 Red Blood Count [facility] ([facility]) hematocrit 44.8 % 42.0-52.0 Hematocrit [place] ([facility]) hemoglobin 14.8 g/dL 13.5-17.5 Hemoglobin [place] ([facility]) mean corpuscular volume 86.5 fL 80.0-96.0 Mean Corpusc ular Volume [place] ([facility]) mean corpuscular hemoglobin 28.6 pg 27.0-33.0 Mean Cor puscular Hemoglobin [place] ([facility]) mean corpuscular HGB conc 33.0 g/dL 32.0-36.5 Mean Corpu scular HGB Conc [place] ([facility]) neutrophils % 59.5 % 36.0-66.0 Neutrophils % [place] ( [facility]) platelet count, automated 277 10 150-450 Platelet C ount, Automated [place] ([facility]) red cell distribution width 12.6 % 11.5-14.5 Red Cell Distribution Width [place] ([facility]) mono % 7.1 % 2.0-8.0 [place] % [place] ([facility]) lymph % 27.7 % 24.0-44.0 Lymph % [place] ([facility]) eos % 4.4 % 0.0-3.0 Above high normal Eos % [place] ([facility]) immature granulocyte % 0.3 % 0-3.0 Immature Gran ulocyte % [place] ([facility]) baso % 1.0 % 0.0-1.0 Baso % [place] ([facility]) nucleated red blood cell % 0.0 % 0-0 Nucleated Red Blood Cell % [place] ([facility]) neutrophils # 4.1 10 1.5-8.5 Neutrophils # [place] ( [facility]) eos # 0.3 10 0.0-0.5 Eos # [place] ([facility]) lymph # 1.9 10 1.5-5.0 Lymph # [place] ([facility]) mono # 0.5 10 0.0-0.8 [place] # [place] ([facility]) baso # 0.1 10 0.0-0.2 Baso # [place] ([facility]) ID Date Data Source [id number] 07/07/2020 08:24:00 AM EDT [place] ([facility]) Name Value Range Interpretation Code Description Data Juliette rce(s) Supporting Document(s) Hemoglobin A1c/Hemoglobin.total in Blood 5.3 % Hemoglobin a1C [place] ([facility]) estimated average glucose 105 mg/dL 60-110 Estimated Average Glucose [place] ([facility]) ID Date Data Source [id number] 07/07/2020 08:24:00 AM EDT [place] ([facility]) Name Value Range Interpretation Code Description Data Juliette rce(s) Supporting Document(s) total 25(oh) vitamin D 26.6 NG/mL 30.0-100.0 Below low normal T otal 25(Oh) Vitamin D [place] ([facility]) ID Date Data Source [id number] 07/07/2020 08:24:00 AM EDT [place] ([facility]) Name Value Range Interpretation Code Description Data Juliette rce(s) Supporting Document(s) cholesterol level 187 mg/dL <200 Cholesterol Level [place] ([facility]) triglycerides level 116 mg/dL <150 Triglycerides Le thee [place] ([facility]) HDL cholesterol 47 mg/dL >40 HDL Cholesterol [facility] ([facility]) Cholesterol in LDL [Mass/volume] in Serum or Plasma 117 mg/dL <100 Above high normal LDL Cholesterol [place] ([facility]) non-HDL-C 140 mg/dL Non-hdl-c [place] ([facility]) cholesterol risk ratio <5 Cholesterol R isk Ratio [place] ([facility]) ID Date Data Source [id number] 07/07/2020 08:24:00 AM EDT [place] ([facility]) Name Value Range Interpretation Code Description Data Juliette rce(s) Supporting Document(s) glucose, fasting 115 mg/dL 70-100 Above high normal Glucose, Fas ting [place] ([facility]) creatinine for GFR 0.73 mg/dL 0.70-1.30 Creatinine for GF R [place] ([facility]) glomerular filtration rate > 60.0 >60 Glomerula r Filtration Rate [place] ([facility]) blood urea nitrogen 17 mg/dL 7-18 Blood Urea Nitro gen [place] ([facility]) sodium level 140 mEq/L 136-145 Sodium Level [place] ([facility]) chloride level 108 mEq/L 98-107 Above high normal Chloride Level [place] ([facility]) potassium serum 4.0 mEq/L 3.5-5.1 Potassium Serum [facility] ([facility]) anion gap 9 mEq/L 8-16 Anion Gap [place] ([facility]) carbon dioxide level 23 mEq/L 21-32 Carbon Dioxide Level [place] ([facility]) calcium level 9.2 mg/dL 8.5-10.1 Calcium Level [place] ( [facility]) AST/SGOT 19 U/L 7-37 AST/SGOT [place] ([facility]) ALT/SGPT 42 U/L 12-78 ALT/SGPT [place] ([facility]) alkaline phosphatase 101 U/L 45-117 Alkaline Phosph atase [place] ([facility]) total protein 7.3 gm/dL 6.4-8.2 Total Protein [place] ( [facility]) bilirubin,total 0.2 mg/dL 0.2-1.0 Bilirubin,total [facility] ([facility]) albumin 4.1 gm/dL 3.2-5.2 Albumin [place] ([facility]) albumin/globulin ratio Albumin/globu blake Ratio [place] ([facility]) ID Date Data Source [id number] 07/07/2020 08:24:00 AM EDT [place] ([facility]) Name Value Range Interpretation Code Description Data Juliette rce(s) Supporting Document(s) white blood count 6.9 10 4.0-10.0 White Blood Count [place] ([facility]) red blood count 5.18 10 4.30-6.10 Red Blood Count [facility] [place] ([facility]) hemoglobin 14.8 g/dL 13.5-17.5 Hemoglobin [place] ([facility]) hematocrit 44.8 % 42.0-52.0 Hematocrit [place] ([facility]) mean corpuscular volume 86.5 fL 80.0-96.0 Mean Corpusc ular Volume [place] ([facility]) mean corpuscular HGB conc 33.0 g/dL 32.0-36.5 Mean Corpu scular HGB Conc [place] ([facility]) red cell distribution width 12.6 % 11.5-14.5 Red Cell Distribution Width [place] ([facility]) mean corpuscular hemoglobin 28.6 pg 27.0-33.0 Mean Cor puscular Hemoglobin [place] ([facility]) platelet count, automated 277 10 150-450 Platelet C ount, Automated [place] ([facility]) neutrophils % 59.5 % 36.0-66.0 Neutrophils % [place] ( [facility]) lymph % 27.7 % 24.0-44.0 Lymph % [place] ([facility]) mono % 7.1 % 2.0-8.0 [place] % [place] ([facility]) eos % 4.4 % 0.0-3.0 Above high normal Eos % [place] ([facility]) nucleated red blood cell % 0.0 % 0-0 Nucleated Red Blood Cell % [place] ([facility]) baso % 1.0 % 0.0-1.0 Baso % [place] ([facility]) immature granulocyte % 0.3 % 0-3.0 Immature Gran ulocyte % [place] ([facility]) mono # 0.5 10 0.0-0.8 [place] # [place] ([facility]) lymph # 1.9 10 1.5-5.0 Lymph # [place] ([facility]) neutrophils # 4.1 10 1.5-8.5 Neutrophils # [place] ( [facility]) eos # 0.3 10 0.0-0.5 Eos # [place] ([facility]) baso # 0.1 10 0.0-0.2 Baso # [place] ([facility]) ID Date Data Source [id number] 03/02/2020 08:49:00 AM EST [place] ([facility]) Name Value Range Interpretation Code Description Data Juliette rce(s) Supporting Document(s) total 25(oh) vitamin D 42.4 NG/mL 30.0-100.0 Total 25(Oh) Vitamin D [place] ([facility]) ID Date Data Source [id number] 03/02/2020 08:49:00 AM EST [place] ([facility]) Name Value Range Interpretation Code Description Data Juliette rce(s) Supporting Document(s) triglycerides level 156 mg/dL <150 Above high normal Triglycer ides Level [place] ([facility]) Cholesterol in LDL [Mass/volume] in Serum or Plasma 148 mg/dL <100 Above high normal LDL Cholesterol [place] ([facility]) HDL cholesterol 47 mg/dL >40 HDL Cholesterol [facility] ([facility]) cholesterol level 226 mg/dL <200 Above high normal Cholesterol Level [place] ([facility]) non-HDL-C 179 mg/dL Non-hdl-c [place] ([facility]) cholesterol risk ratio <5 Cholesterol R isk Ratio [place] ([facility]) ID Date Data Source [id number] 03/02/2020 08:49:00 AM EST [place] ([facility]) Name Value Range Interpretation Code Description Data Juliette rce(s) Supporting Document(s) creatinine for GFR 0.92 mg/dL 0.70-1.30 Creatinine for GF R [place] ([facility]) glomerular filtration rate > 60.0 >60 Glomerula r Filtration Rate [place] ([facility]) glucose, fasting 118 mg/dL 70-100 Above high normal Glucose, Fas ting [place] ([facility]) blood urea nitrogen 15 mg/dL 7-18 Blood Urea Nitro gen [place] ([facility]) chloride level 107 mEq/L 98-107 Chloride Level [place] ([facility]) sodium level 141 mEq/L 136-145 Sodium Level [place] ([facility]) carbon dioxide level 27 mEq/L 21-32 Carbon Dioxide Level [place] ([facility]) potassium serum 4.4 mEq/L 3.5-5.1 Potassium Serum [facility] ([facility]) ALT/SGPT 53 U/L 12-78 ALT/SGPT [place] ([facility]) AST/SGOT 18 U/L 7-37 AST/SGOT [place] ([facility]) calcium level 8.8 mg/dL 8.5-10.1 Calcium Level [place] ( [facility]) anion gap 7 mEq/L 8-16 Below low normal Anion Gap [place] ( [facility]) albumin 3.9 gm/dL 3.2-5.2 Albumin [place] ([facility]) bilirubin,total 0.3 mg/dL 0.2-1.0 Bilirubin,total [facility] ([facility]) alkaline phosphatase 105 U/L 45-117 Alkaline Phosph atase [place] ([facility]) total protein 7.5 gm/dL 6.4-8.2 Total Protein [place] ( [facility]) albumin/globulin ratio Albumin/globu blake Ratio [place] ([facility]) ID Date Data Source [id number] 03/02/2020 08:49:00 AM EST [place] ([facility]) Name Value Range Interpretation Code Description Data Juliette rce(s) Supporting Document(s) Hemoglobin A1c/Hemoglobin.total in Blood 5.8 % Hemoglobin a1C [place] ([facility]) estimated average glucose 120 mg/dL 60-110 Above high norm al Estimated Average Glucose [place] ([facility]) ID Date Data Source [id number] 03/02/2020 08:49:00 AM EST [place] ([facility]) Name Value Range Interpretation Code Description Data Juliette rce(s) Supporting Document(s) white blood count 7.9 10 4.0-10.0 White Blood Count [place] ([facility]) red blood count 5.18 10 4.30-6.10 Red Blood Count [facility] ([facility]) hematocrit 45.6 % 42.0-52.0 Hematocrit [place] ([facility]) hemoglobin 14.7 g/dL 13.5-17.5 Hemoglobin [place] ([facility]) mean corpuscular volume 88.0 fL 80.0-96.0 Mean Corpusc ular Volume [place] ([facility]) red cell distribution width 12.4 % 11.5-14.5 Red Cell Distribution Width [place] ([facility]) mean corpuscular hemoglobin 28.4 pg 27.0-33.0 Mean Cor puscular Hemoglobin [place] ([facility]) mean corpuscular HGB conc 32.2 g/dL 32.0-36.5 Mean Corpu scular HGB Conc [place] ([facility]) platelet count, automated 287 10 150-450 Platelet C ount, Automated [place] ([facility]) lymph % 29.3 % 24.0-44.0 Lymph % [place] ([facility]) mono % 6.6 % 0.0-5.0 Above high normal [place] % [place] ([facility]) neutrophils % 58.7 % 36.0-66.0 Neutrophils % [place] ( [facility]) eos % 3.9 % 0.0-3.0 Above high normal Eos % [place] ([facility]) baso % 0.9 % 0.0-1.0 Baso % [place] ([facility]) immature granulocyte % 0.6 % 0-3.0 Immature Gran ulocyte % [place] ([facility]) neutrophils # 4.6 10 1.5-8.5 Neutrophils # [place] ( [facility]) lymph # 2.3 10 1.5-5.0 Lymph # [place] ([facility]) nucleated red blood cell % 0.0 % 0-0 Nucleated Red Blood Cell % [place] ([facility]) mono # 0.5 10 0.0-0.8 [place] # [place] ([facility]) baso # 0.1 10 0.0-0.2 Baso # [place] ([facility]) eos # 0.3 10 0.0-0.5 Eos # [place] ([facility]) ID Date Data Source [id number] 03/02/2020 08:49:00 AM EST [place] ([facility]) Name Value Range Interpretation Code Description Data Juliette rce(s) Supporting Document(s) total 25(oh) vitamin D 42.4 NG/mL 30.0-100.0 Total 25(Oh) Vitamin D [place] ([facility]) ID Date Data Source [id number] 03/02/2020 08:49:00 AM EST [place] ([facility]) Name Value Range Interpretation Code Description Data Juliette rce(s) Supporting Document(s) triglycerides level 156 mg/dL <150 Above high normal Triglycer ides Level [place] ([facility]) cholesterol level 226 mg/dL <200 Above high normal Cholesterol Level [place] ([facility]) Cholesterol in LDL [Mass/volume] in Serum or Plasma 148 mg/dL <100 Above high normal LDL Cholesterol [place] ([facility]) HDL cholesterol 47 mg/dL >40 HDL Cholesterol [place] NA ([facility]) non-HDL-C 179 mg/dL Non-hdl-c [place] ([facility]) cholesterol risk ratio <5 Cholesterol R isk Ratio [place] ([facility]) ID Date Data Source [id number] 03/02/2020 08:49:00 AM EST [place] ([facility]) Name Value Range Interpretation Code Description Data Juliette rce(s) Supporting Document(s) glucose, fasting 118 mg/dL 70-100 Above high normal Glucose, Fas ting [place] ([facility]) blood urea nitrogen 15 mg/dL 7-18 Blood Urea Nitro gen [place] ([facility]) glomerular filtration rate > 60.0 >60 Glomerula r Filtration Rate [place] ([facility]) creatinine for GFR 0.92 mg/dL 0.70-1.30 Creatinine for GF R [place] ([facility]) sodium level 141 mEq/L 136-145 Sodium Level [place] ([facility]) carbon dioxide level 27 mEq/L 21-32 Carbon Dioxide Level [place] ([facility]) chloride level 107 mEq/L 98-107 Chloride Level [place] ([facility]) potassium serum 4.4 mEq/L 3.5-5.1 Potassium Serum [place] ([facility]) anion gap 7 mEq/L 8-16 Below low normal Anion Gap [place] ( [facility]) AST/SGOT 18 U/L 7-37 AST/SGOT [place] ([facility]) ALT/SGPT 53 U/L 12-78 ALT/SGPT [place] ([facility]) calcium level 8.8 mg/dL 8.5-10.1 Calcium Level [place] ( [facility]) total protein 7.5 gm/dL 6.4-8.2 Total Protein [place] ( [facility]) alkaline phosphatase 105 U/L 45-117 Alkaline Phosph atase [place] ([facility]) albumin 3.9 gm/dL 3.2-5.2 Albumin [place] ([facility]) bilirubin,total 0.3 mg/dL 0.2-1.0 Bilirubin,total [place] ([facility]) albumin/globulin ratio Albumin/globu blake Ratio [place] ([facility]) ID Date Data Source [id number] 03/02/2020 08:49:00 AM EST [place] ([facility]) Name Value Range Interpretation Code Description Data Juliette rce(s) Supporting Document(s) Hemoglobin A1c/Hemoglobin.total in Blood 5.8 % Hemoglobin a1C [place] ([facility]) estimated average glucose 120 mg/dL 60-110 Above high norm al Estimated Average Glucose [place] ([facility]) ID Date Data Source [id number] 03/02/2020 08:49:00 AM EST [place] ([facility]) Name Value Range Interpretation Code Description Data Juliette rce(s) Supporting Document(s) white blood count 7.9 10 4.0-10.0 White Blood Count [place] ([facility]) red blood count 5.18 10 4.30-6.10 Red Blood Count [place] ([facility]) mean corpuscular volume 88.0 fL 80.0-96.0 Mean Corpusc ular Volume [place] ([facility]) hematocrit 45.6 % 42.0-52.0 Hematocrit [place] ([facility]) hemoglobin 14.7 g/dL 13.5-17.5 Hemoglobin [place] ([facility]) mean corpuscular hemoglobin 28.4 pg 27.0-33.0 Mean Cor puscular Hemoglobin [place] ([facility]) red cell distribution width 12.4 % 11.5-14.5 Red Cell Distribution Width [place] ([facility]) mean corpuscular HGB conc 32.2 g/dL 32.0-36.5 Mean Corpu scular HGB Conc [place] ([facility]) lymph % 29.3 % 24.0-44.0 Lymph % [place] ([facility]) platelet count, automated 287 10 150-450 Platelet C ount, Automated [place] ([facility]) mono % 6.6 % 0.0-5.0 Above high normal [place] % [place] ([facility]) neutrophils % 58.7 % 36.0-66.0 Neutrophils % [place] ( [facility]) baso % 0.9 % 0.0-1.0 Baso % [place] ([facility]) immature granulocyte % 0.6 % 0-3.0 Immature Gran ulocyte % [place] ([facility]) eos % 3.9 % 0.0-3.0 Above high normal Eos % [place] ([facility]) nucleated red blood cell % 0.0 % 0-0 Nucleated Red Blood Cell % [place] ([facility]) lymph # 2.3 10 1.5-5.0 Lymph # [place] ([facility]) mono # 0.5 10 0.0-0.8 [place] # [place] ([facility]) neutrophils # 4.6 10 1.5-8.5 Neutrophils # [place] ( [facility]) baso # 0.1 10 0.0-0.2 Baso # [place] ([facility]) eos # 0.3 10 0.0-0.5 Eos # [place] ([facility]) ID Date Data Source [id number] 03/02/2020 08:49:00 AM EST [place] ([facility]) Name Value Range Interpretation Code Description Data Juliette rce(s) Supporting Document(s) total 25(oh) vitamin D 42.4 NG/mL 30.0-100.0 Total 25(Oh) Vitamin D [place] ([facility]) ID Date Data Source [id number] 03/02/2020 08:49:00 AM EST [place] ([facility]) Name Value Range Interpretation Code Description Data Juliette rce(s) Supporting Document(s) triglycerides level 156 mg/dL <150 Above high normal Triglycer ides Level [place] ([facility]) cholesterol level 226 mg/dL <200 Above high normal Cholesterol Level [place] ([facility]) HDL cholesterol 47 mg/dL >40 HDL Cholesterol [place] ([facility]) Cholesterol in LDL [Mass/volume] in Serum or Plasma 148 mg/dL <100 Above high normal LDL Cholesterol [place] ([facility]) cholesterol risk ratio <5 Cholesterol R isk Ratio [place] ([facility]) non-HDL-C 179 mg/dL Non-hdl-c [place] ([facility]) ID Date Data Source [id number] 03/02/2020 08:49:00 AM EST [place] ([facility]) Name Value Range Interpretation Code Description Data Juliette rce(s) Supporting Document(s) glucose, fasting 118 mg/dL 70-100 Above high normal Glucose, Fas ting [place] ([facility]) blood urea nitrogen 15 mg/dL 7-18 Blood Urea Nitro gen [place] ([facility]) creatinine for GFR 0.92 mg/dL 0.70-1.30 Creatinine for GF R [place] ([facility]) sodium level 141 mEq/L 136-145 Sodium Level [place] ([facility]) glomerular filtration rate > 60.0 >60 Glomerula r Filtration Rate [place] ([facility]) potassium serum 4.4 mEq/L 3.5-5.1 Potassium Serum [place] ([facility]) chloride level 107 mEq/L 98-107 Chloride Level [place] ([facility]) carbon dioxide level 27 mEq/L 21-32 Carbon Dioxide Level [place] ([facility]) calcium level 8.8 mg/dL 8.5-10.1 Calcium Level [place] ( [facility]) anion gap 7 mEq/L 8-16 Below low normal Anion Gap [place] ( [facility]) AST/SGOT 18 U/L 7-37 AST/SGOT [place] ([facility]) ALT/SGPT 53 U/L 12-78 ALT/SGPT [place] ([facility]) alkaline phosphatase 105 U/L 45-117 Alkaline Phosph atase [place] ([facility]) bilirubin,total 0.3 mg/dL 0.2-1.0 Bilirubin,total [place] ([facility]) albumin 3.9 gm/dL 3.2-5.2 Albumin [place] ([facility]) total protein 7.5 gm/dL 6.4-8.2 Total Protein [place] ( [facility]) albumin/globulin ratio Albumin/globu blake Ratio [place] ([facility]) ID Date Data Source [id number] 03/02/2020 08:49:00 AM EST [place] ([facility]) Name Value Range Interpretation Code Description Data Juliette rce(s) Supporting Document(s) estimated average glucose 120 mg/dL 60-110 Above high norm al Estimated Average Glucose [place] ([facility]) Hemoglobin A1c/Hemoglobin.total in Blood 5.8 % Hemoglobin a1C [place] ([facility]) ID Date Data Source [id number] 03/02/2020 08:49:00 AM EST [place] ([facility]) Name Value Range Interpretation Code Description Data Juliette rce(s) Supporting Document(s) white blood count 7.9 10 4.0-10.0 White Blood Count [place] ([facility]) red blood count 5.18 10 4.30-6.10 Red Blood Count [place] ([facility]) hematocrit 45.6 % 42.0-52.0 Hematocrit [place] ([facility]) hemoglobin 14.7 g/dL 13.5-17.5 Hemoglobin [place] ([facility]) mean corpuscular volume 88.0 fL 80.0-96.0 Mean Corpusc ular Volume [place] ([facility]) mean corpuscular HGB conc 32.2 g/dL 32.0-36.5 Mean Corpu scular HGB Conc [place] ([facility]) mean corpuscular hemoglobin 28.4 pg 27.0-33.0 Mean Cor puscular Hemoglobin [place] ([facility]) red cell distribution width 12.4 % 11.5-14.5 Red Cell Distribution Width [place] ([facility]) platelet count, automated 287 10 150-450 Platelet C ount, Automated [place] ([facility]) neutrophils % 58.7 % 36.0-66.0 Neutrophils % [place] ( [facility]) lymph % 29.3 % 24.0-44.0 Lymph % [place] ([facility]) mono % 6.6 % 0.0-5.0 Above high normal [place] % [place] ([facility]) eos % 3.9 % 0.0-3.0 Above high normal Eos % [place] ([facility]) immature granulocyte % 0.6 % 0-3.0 Immature Gran ulocyte % [place] ([facility]) baso % 0.9 % 0.0-1.0 Baso % [place] ([facility]) nucleated red blood cell % 0.0 % 0-0 Nucleated Red Blood Cell % [place] ([facility]) lymph # 2.3 10 1.5-5.0 Lymph # [place] ([facility]) neutrophils # 4.6 10 1.5-8.5 Neutrophils # [place] ( [facility]) mono # 0.5 10 0.0-0.8 [place] # [place] ([facility]) eos # 0.3 10 0.0-0.5 Eos # [place] ([facility]) baso # 0.1 10 0.0-0.2 Baso # [place] ([facility]) ID Date Data Source [id number] 03/02/2020 08:49:00 AM EST [place] ([facility]) Name Value Range Interpretation Code Description Data Juliette rce(s) Supporting Document(s) total 25(oh) vitamin D 42.4 NG/mL 30.0-100.0 Total 25(Oh) Vitamin D [place] ([facility]) ID Date Data Source [id number] 03/02/2020 08:49:00 AM EST [place] ([facility]) Name Value Range Interpretation Code Description Data Juliette rce(s) Supporting Document(s) cholesterol level 226 mg/dL <200 Above high normal Cholesterol Level [place] ([facility]) triglycerides level 156 mg/dL <150 Above high normal Triglycer ides Level [place] ([facility]) Cholesterol in LDL [Mass/volume] in Serum or Plasma 148 mg/dL <100 Above high normal LDL Cholesterol [place] ([facility]) HDL cholesterol 47 mg/dL >40 HDL Cholesterol [place] ([facility]) non-HDL-C 179 mg/dL Non-hdl-c [place] ([facility]) cholesterol risk ratio <5 Cholesterol R isk Ratio [place] ([facility]) ID Date Data Source [id number] 03/02/2020 08:49:00 AM EST [place] ([facility]) Name Value Range Interpretation Code Description Data Juliette rce(s) Supporting Document(s) glucose, fasting 118 mg/dL 70-100 Above high normal Glucose, Fas ting [place] ([facility]) creatinine for GFR 0.92 mg/dL 0.70-1.30 Creatinine for GF R [place] ([facility]) blood urea nitrogen 15 mg/dL 7-18 Blood Urea Nitro gen [place] ([facility]) sodium level 141 mEq/L 136-145 Sodium Level [place] ([facility]) glomerular filtration rate > 60.0 >60 Glomerula r Filtration Rate [place] ([facility]) chloride level 107 mEq/L 98-107 Chloride Level [place] ([facility]) carbon dioxide level 27 mEq/L 21-32 Carbon Dioxide Level [place] ([facility]) potassium serum 4.4 mEq/L 3.5-5.1 Potassium Serum [place] ([facility]) ALT/SGPT 53 U/L 12-78 ALT/SGPT [place] ([facility]) anion gap 7 mEq/L 8-16 Below low normal Anion Gap [place] ( [facility]) calcium level 8.8 mg/dL 8.5-10.1 Calcium Level [place] ( [facility]) AST/SGOT 18 U/L 7-37 AST/SGOT [place] ([facility]) alkaline phosphatase 105 U/L 45-117 Alkaline Phosph atase [place] ([facility]) albumin/globulin ratio Albumin/globu blake Ratio [place] ([facility]) bilirubin,total 0.3 mg/dL 0.2-1.0 Bilirubin,total [place] ([facility]) albumin 3.9 gm/dL 3.2-5.2 Albumin [place] ([facility]) total protein 7.5 gm/dL 6.4-8.2 Total Protein [place] ( [facility]) ID Date Data Source [id number] 03/02/2020 08:49:00 AM EST [place] ([facility]) Name Value Range Interpretation Code Description Data Juliette rce(s) Supporting Document(s) estimated average glucose 120 mg/dL 60-110 Above high norm al Estimated Average Glucose [place] ([facility]) Hemoglobin A1c/Hemoglobin.total in Blood 5.8 % Hemoglobin a1C [place] ([facility]) ID Date Data Source [id number] 03/02/2020 08:49:00 AM EST [place] ([facility]) Name Value Range Interpretation Code Description Data Juliette rce(s) Supporting Document(s) white blood count 7.9 10 4.0-10.0 White Blood Count [place] ([facility]) mean corpuscular volume 88.0 fL 80.0-96.0 Mean Corpusc ular Volume [place] ([facility]) red blood count 5.18 10 4.30-6.10 Red Blood Count [place] ([facility]) hematocrit 45.6 % 42.0-52.0 Hematocrit [place] ([facility]) hemoglobin 14.7 g/dL 13.5-17.5 Hemoglobin [place] ([facility]) mean corpuscular HGB conc 32.2 g/dL 32.0-36.5 Mean Corpu scular HGB Conc [place] ([facility]) platelet count, automated 287 10 150-450 Platelet C ount, Automated [place] ([facility]) red cell distribution width 12.4 % 11.5-14.5 Red Cell Distribution Width [place] ([facility]) mean corpuscular hemoglobin 28.4 pg 27.0-33.0 Mean Cor puscular Hemoglobin [place] ([facility]) neutrophils % 58.7 % 36.0-66.0 Neutrophils % [place] ( [facility]) lymph % 29.3 % 24.0-44.0 Lymph % [place] ([facility]) mono % 6.6 % 0.0-5.0 Above high normal [place] % [place] ([facility]) immature granulocyte % 0.6 % 0-3.0 Immature Gran ulocyte % [place] ([facility]) baso % 0.9 % 0.0-1.0 Baso % [place] ([facility]) eos % 3.9 % 0.0-3.0 Above high normal Eos % [place] ([facility]) nucleated red blood cell % 0.0 % 0-0 Nucleated Red Blood Cell % [place] ([facility]) eos # 0.3 10 0.0-0.5 Eos # [place] ([facility]) lymph # 2.3 10 1.5-5.0 Lymph # [place] ([facility]) neutrophils # 4.6 10 1.5-8.5 Neutrophils # [place] ( [facility]) mono # 0.5 10 0.0-0.8 [place] # [place] ([facility]) baso # 0.1 10 0.0-0.2 Baso # [place] ([facility]) ID Date Data Source [id number] 03/02/2020 08:49:00 AM EST [place] ([facility]) Name Value Range Interpretation Code Description Data Juliette rce(s) Supporting Document(s) total 25(oh) vitamin D 42.4 NG/mL 30.0-100.0 Total 25(Oh) Vitamin D [place] ([facility]) ID Date Data Source [id number] 03/02/2020 08:49:00 AM EST [place] ([facility]) Name Value Range Interpretation Code Description Data Juliette rce(s) Supporting Document(s) triglycerides level 156 mg/dL <150 Above high normal Triglycer ides Level [place] ([facility]) non-HDL-C 179 mg/dL Non-hdl-c [place] ([facility]) Cholesterol in LDL [Mass/volume] in Serum or Plasma 148 mg/dL <100 Above high normal LDL Cholesterol [place] ([facility]) HDL cholesterol 47 mg/dL >40 HDL Cholesterol [place] ([facility]) cholesterol level 226 mg/dL <200 Above high normal Cholesterol Level [place] ([facility]) cholesterol risk ratio <5 Cholesterol R isk Ratio [place] ([facility]) ID Date Data Source [id number] 03/02/2020 08:49:00 AM EST [place] ([facility]) Name Value Range Interpretation Code Description Data Juliette rce(s) Supporting Document(s) glucose, fasting 118 mg/dL 70-100 Above high normal Glucose, Fas ting [place] ([facility]) blood urea nitrogen 15 mg/dL 7-18 Blood Urea Nitro gen [place] ([facility]) sodium level 141 mEq/L 136-145 Sodium Level [place] ([facility]) glomerular filtration rate > 60.0 >60 Glomerula r Filtration Rate [place] ([facility]) creatinine for GFR 0.92 mg/dL 0.70-1.30 Creatinine for GF R [place] ([facility]) potassium serum 4.4 mEq/L 3.5-5.1 Potassium Serum [place] ([facility]) anion gap 7 mEq/L 8-16 Below low normal Anion Gap [place] ( [facility]) calcium level 8.8 mg/dL 8.5-10.1 Calcium Level [place] ( [facility]) chloride level 107 mEq/L 98-107 Chloride Level [place] ([facility]) carbon dioxide level 27 mEq/L 21-32 Carbon Dioxide Level [place] ([facility]) AST/SGOT 18 U/L 7-37 AST/SGOT [place] ([facility]) ALT/SGPT 53 U/L 12-78 ALT/SGPT [place] ([facility]) bilirubin,total 0.3 mg/dL 0.2-1.0 Bilirubin,total [place] ([facility]) alkaline phosphatase 105 U/L 45-117 Alkaline Phosph atase [place] ([facility]) albumin 3.9 gm/dL 3.2-5.2 Albumin [place] ([facility]) total protein 7.5 gm/dL 6.4-8.2 Total Protein [place] ( [facility]) albumin/globulin ratio Albumin/globu blake Ratio [place] ([facility]) ID Date Data Source [id number] 03/02/2020 08:49:00 AM EST [place] ([facility]) Name Value Range Interpretation Code Description Data Juliette rce(s) Supporting Document(s) estimated average glucose 120 mg/dL 60-110 Above high norm al Estimated Average Glucose [place] ([facility]) Hemoglobin A1c/Hemoglobin.total in Blood 5.8 % Hemoglobin a1C [place] ([facility]) ID Date Data Source [id number] 03/02/2020 08:49:00 AM EST [place] ([facility]) Name Value Range Interpretation Code Description Data Juliette rce(s) Supporting Document(s) white blood count 7.9 10 4.0-10.0 White Blood Count [place] ([facility]) hemoglobin 14.7 g/dL 13.5-17.5 Hemoglobin [place] ([facility]) red blood count 5.18 10 4.30-6.10 Red Blood Count [place] ([facility]) hematocrit 45.6 % 42.0-52.0 Hematocrit [place] ([facility]) mean corpuscular volume 88.0 fL 80.0-96.0 Mean Corpusc ular Volume [place] ([facility]) mean corpuscular HGB conc 32.2 g/dL 32.0-36.5 Mean Corpu scular HGB Conc [place] ([facility]) mean corpuscular hemoglobin 28.4 pg 27.0-33.0 Mean Cor puscular Hemoglobin [place] ([facility]) red cell distribution width 12.4 % 11.5-14.5 Red Cell Distribution Width [place] ([facility]) lymph % 29.3 % 24.0-44.0 Lymph % [place] ([facility]) platelet count, automated 287 10 150-450 Platelet C ount, Automated [place] ([facility]) neutrophils % 58.7 % 36.0-66.0 Neutrophils % [place] ( [facility]) eos % 3.9 % 0.0-3.0 Above high normal Eos % [place] ([facility]) mono % 6.6 % 0.0-5.0 Above high normal [place] % [place] ([facility]) baso % 0.9 % 0.0-1.0 Baso % [place] ([facility]) immature granulocyte % 0.6 % 0-3.0 Immature Gran ulocyte % [place] ([facility]) neutrophils # 4.6 10 1.5-8.5 Neutrophils # [place] ( [facility]) nucleated red blood cell % 0.0 % 0-0 Nucleated Red Blood Cell % [place] ([facility]) lymph # 2.3 10 1.5-5.0 Lymph # [place] ([facility]) eos # 0.3 10 0.0-0.5 Eos # [place] ([facility]) baso # 0.1 10 0.0-0.2 Baso # [place] ([facility]) mono # 0.5 10 0.0-0.8 [place] # [place] ([facility]) ID Date Data Source [id number] 12/10/2019 08:22:13 AM EDT [facility] Measurements & CalculationsHeight: 70 inches (5 ft. 10 in.) 177.80 cm Weight: 303 pounds 6 oz. 137.90 kg Body Mass Index (BMI): 43.69BMI Interpretation: Morbidly ObeseBody Surface Area (BSA): 2.49Weight Management Education Done (Nutrition/Physical Activity)Vital SignsTemperature: 98.6FPulse Rate: 89 beats/minuteRespiratory Rate: 14 respirations/minuteBlood Pressure: 134/87 O2 Saturation: 96% Vital Signs performed by: Adri Sexton LPN, December 10, 2019 8:27 AMVital Signs performed by: Adri Sexton LPN, December 10, 2019 8:27 AMMultiple Vital SignsInitial BP: 144/89Vitals #2BP: 134/87 (primary)Initial Intake Information From: patientRoom #: 11Infectious Disease / Travel ScreeningRecent travel for you or any close contacts? NoHave you had any close contact with anyone diagnosed with or under investigation for COVID-19 (coronavirus)? NoFever? NoRespiratory symptoms: cough, cold, congestion, shortness of breath, difficulty breathing? NoLoss of smell? NoLoss of taste? NoSmoking, Tobacco, Vaping or Smoke Exposure StatusSmoke Status: never smokerTobacco Use: NoDo you vape? NoHealthcare HistorySince your last office visit...Have you been admitted to the hospital? NoHave you been to an emergency room (ER) or urgent care clinic? NoHave you seen another healthcare provider? NoHave you seen a dentist? Yes - MccueIntake performed by: Adri Sexton LPN, December 10, 2019 8:30 AMRate Your HealthIn general, would you say your health is? Very GoodPain AssessmentAre you currently having any pain which... You wo uld like your provider to address? Yes Affects your activity level? YesDepression Screening - PHQ-2Over the last two weeks, have you... Had little interest or pleasure in doing things? Not at all Been feeling down, depressed, or hopeless? Not at all PHQ-2 Score: 0Anxiety Screening - JAMEY-2Over the last two weeks, have you been... Feeling nervous, anxious, or on edge? Several days Unable to stop or control worrying? More than half the days JAMEY- 2 Score: 3Generalized Anxiety Disorder 7-Item Screening (JAMEY-7)Answer Guide:0 = Not at all1 = Several days2 = Over half the days3 = Nearly every dayOver the last 2 weeks, how often have you been bothered by the following problems?Feeling nervous, anxious, or on edge: 1Not being able to stop or control worryinWorrying too much about different things: 0Trouble relaxinBeing so restless that it's hard to sit still: 2Becoming easily annoyed or irritable: 1Feeling afraid as if something awful might happen: 0Answer Guide:0 = Not difficult at all1 = Somewhat difficult2 = Very difficult3 = Extremely difficultHow difficult have these made it for you to do your work, take care of things at home, or get along with other people? 2GAD-7 Screening Results JAMEY-2 Score: 3GAD-7 Score: 8Functional Impairment: Very difficultRecommendation: Mild anxietyPain AssessmentPain ScaleNumeric Rating Scale: 5 / 10Location: abdomenDuration: 1 1/2 week Frequency: DailyCharacter/Quality: aching, burning, sharp, dull and pressureIs the pain radiating? NoScreening, Brief Intervention, & Referral to Treatment (SBIRT)Pre-Screening Questions How many times have you have 5 or more drinks in a day? 0How many times have you used an illegal drug or used a prescription medication for a non-medical reason? 0Performed by: Adri Sexton LPN, December 10, 2019 8:34 AMPatient History Medical History:hospitalized for tonsillitis and strep 2013Surgical History:appendix removal 2012Hernia repair 2018Family History:tonsil cancer - (uncle)Diabetes (Father)Hypertension ([facility])Social/Personal History: Chief Complaintfollow-up visit lab results room 11History of Present Illness (HPI)39 YO male here for follow up on labs. C/O pain in Abdomen area due injury to area after son "climbed on " abdomen. Pt states felt a "ripping" at site. Previous Hernia surgery 2018. Pt states in Therapy with Cynthia but still panic attacks daily. Pt would like to try medicat ions for his anxiety. Pt concerned with pain to mid abdomen. Pt states pain started about two weeks ago. pt states pain started after his 2 yo son 30 pounds climbed on abdomen. Pt states had herna surgery 12/2018, will obtain Ultra sound for eval . Pt denies other concerns today. HPI performed by: Zara HALE, December 10, 2019 8:55 AMTransitions of Care InboundProblem ReviewProblem List was reviewed and/or updated during this visit.Medication Reconciliation & ReviewMedication List was reviewed and/or updated during this visit, including review of any [id number] medications, herbal therapies, and/or supplements.Allergy ReviewAllergy List was reviewed and/or updated during this visit.Adult Preventive CareProvider Calculated and Reviewed all Clinical Protocols for patient today. Labs/Meds/Other Counseling-Nutrition and Physical Activity:BMI Interpretation: Morbidly Obese (12/10/2019) Counseling: Done (12/10/2019) Physical Activity: Done (12/10/2019)Review of Systems General: Denies loss of appetite, chills, dizziness, fatigue, fever, continued fever, headache, feeling ill, sweats, night sweats, sleep disturbances, weight loss. Eyes: Denies blurring of vision, double vision, irritation, discharge, vision loss, eye pain, eye swelling, droopy eyelid, sensitivity to light, redness, itching. Ears/Nose/Throat: Denies earache, ear discharge, ringing in ears, decreased hearing, nasal congestion, nosebleeds, runny nose, sore throat, hoarseness, difficulty swallowing, dry mouth, tooth pain, bleeding gums, swollen glands. Cardiovascular: Denies chest pain, palpitations, feeling faint, trouble breathing w/exertion, SOB upon lying down, SOB at night, peripheral edema, elevated blood pressure, decreased heart rate. Respiratory: Denies cough, difficulty breathing, shortness of breath, excessive sputum, coughing up blood, wheezing, chest pain. Gastrointestinal: Complains of pain or discomfort, abdominal pain. Denies nausea, vomiting, bleeding, burning, itching, irritati on, cramps, diarrhea, constipation. mid abdominal pain. Genitourinary: Denies urinary incontinence, pain with urination, burning with urination, urinary frequency, urinary hesitancy, urinary urgency, urinary urgency at night, incomplete emptying, blood in urine. Musculoskeletal: Denies back pain, joint pain, leg pain, other pain-see comments, joint swelling, body aches, muscle aches, muscle cramps, muscle weakness, stiffness, recent injury. Skin: Denies rash, hives, redness, itching, dryness, nail changes, suspicious lesions, athlete's foot, rash on palms, rash on bottom of feet. Neurologic: Denies muscle impairment, weakness, numbness/tingling, seizures, slurred speech, feeling faint, tremors, vertigo, paralysis on one side, paralysis on both sides. Psychiatric: Complains of anxiety. Endocrine: Denies cold intolerance, heat intolerance, excessive thirst, excessive hunger, excessive urination, weight loss, weight gain. Physical ExamGeneral Appearance: well nourished, well hydrated, no acute distressEyes, External: conjunctivae and lids normal, EOMIRespiratory, Auscultation: clear to auscultation bilaterally; no rales, rhonchi, or wheezesRespiratory, Effort: no intercostal retractions or use of accessory musclesCardiovascular, Auscultation: S1, S2 audible; no murmur, rub, or gallop; RRRPeripheral Circulation: no clubbing, cyanosis, edema, or varicositiesAbdomen: mid abdominal tender on palpationGait & Station: normalSkin, Inspection: no rashes, lesions, or ulcerationsOrientation: oriented to time, place, and personMood & Affect: no depression, anxiety, or agitationJudgment & Insight: intactCare Management Plan Transitions of CareInboundRate Your HealthIn general, would you say your health is? Very GoodAssessment & Plan Problems:Added: Person consulting for explanation of examination or test findings (ICD-V65.8) (HBM28-C45.2) Assessment: Instructions: We have reviewed your lab results with you today. Please continue lifestyle changes to include healthy diet and physical activities. Please try to limit sugars, sodium, carbohydrates and fats in your diet. aPlease try to maintain adequate intake of water daily.vitamin D deficiency (ICD-268.9) (QOX49-J62.9) Assessment: Instructions: Vitamin D medication sent to pharmacy for you today.Unspecified injury of abdomen, initial encounter (ICD- 959.12) (WGK90-I43.91xA) Assessment: Instructions: We have ordered an ultrasound for you. We will contact you to set this up.Person consulting for explanation of examination or test findings (ICD-V65.8) (TSD02-H81.2) Assessment: lab result + vitamin D Deficiency, prediabetes, elevated cholesterol. Lifestyle changes discussed and encouraged.Prediabetes (ICD10- R73.03) Assessment: Instructions: HGA1c is 5.7. This indicates Prediabetes. Please continue lifestyle changes to include healthy diet and physical activities. Please try to limit sugars, sodium, carbohydrates and fats in your diet. Please try to maintain adequate intake of water daily.Hyperlipidemia, unspecified (LTJ01-B42.5) Assessment: Instructions: Please continue lifestyle changes to include healthy diet and physical activities. Please try to limit sugars, sodium, carbohydrates and fats in your diet. Please try to avoid processed foods. Please try to maintain adequate intake of waterUpper abdominal pain, unspecified (XJB88-O23.10) Assessment: Instructions: Ultrasound ordered. May take tylenol as needed for pain. Please try to avoid heavy lifting.Assessed:Anxiety depression (ICD-300.09) (VLU45-V85.8) Assessment: Instructions: We have sent a prescription to your pharmacy today. Please take medication as prescribed. Please report any major side effects. Please continue to follow with your Therapist as scheduled.Health Screening (ICD-V70.0) (ICD10- Z13.9) Assessment: Instructions: Lab results reviewed wit you today.Patient Instructions/Care Plan: Anxiety depression: We have sent a prescription to your pharmacy today. Please take medication as prescribed. Please report any major side effects. Please continue to follow with your Therapist as scheduled.Person consulting for explanation of examination or test findings: We have reviewed your lab results with you today. Please continue lifestyle changes to include healthy diet and physical activities. Please try to limit sugars, sodium, carbohydrates and fats in your diet. aPlease try to maintain adequate intake of water daily.vitamin D deficiency: Vitamin D medication sent to pharmacy for you today.Unspecified injury of abdomen- initial encounter: We have ordered an ultrasound for you. We will contact you to set this up.Health Screening: Lab results reviewed wit you today.Prediabetes: HGA1c is 5.7. This indicates Prediabetes. Please continue lifestyle changes to include healthy diet and physical activities. Please try to limit sugars, sodium, carbohydrates and fats in your diet. Please try to maintain adequate intake of water daily.Hyperlipidemia- unspecified: Please continue lifestyle changes to include healthy diet and physical activities. Please try to limit sugars, sodium, carbohydrates and fats in your diet. Please try to avoid processed foods. Please try to maintain adequate intake of waterUpper abdominal pain- unspecified: Ultrasound ordered. May take tylenol as needed for pain. Please try to avoid heavy lifting. Plan developed in collaboration with patient and/or familyMedications:VITAMIN D3 52918 UNIT ORAL TABLETSERTRALINE HCL 50 MG ORAL TABLETMedication Changes:New Prescription:SERTRALINE HCL 50 MG ORAL TABLET-take one tablet by mouth daily Qty: 30[Tablet] Refills: 1 Method: ElectronicV ITAMIN D3 89726 UNIT ORAL TABLET-1 po q wk for 12 wks, then change to 1000 unit tablet daily thereafter Qty: 12[Tablet] Refills: 0 Method: ElectronicAllergies:No Known Allergies (updated 10/16/2019) Orders:Ultrasound, abdominal, limited [CPT-26974] COMP METABOLIC PANEL [CPT-72350] CBC W/DIFF [CPT- 11455] HgBA1c [CPT-51494] LIPID PANEL [CPT-12360] Vitamin D 250H Unspecified [CPT-46973] Adult - Ofc Vst, EST, Level IV [CPT-70677] Follow-Up Return to clinic: 6-8 weeks for follow up Additional Follow-Up: 6-8 weeks, follow up on anxiety. 3 months, routine follow up [facility]VITAMIN D3 83305 UNIT ORAL TABLET (CHOLECALCIFEROL) 1 po q wk for 12 wks, then change to 1000 unit tablet daily thereafter #12[Tablet] x 0 Route:ORAL Entered and Authorized by: Zara HALE Method used: Electronically to [facility] (retail) [address] [place] [address] Note to Pharmacy: Route: ORAL; Indications: VITAMIN D DEFICIENCY RxID: [id number] HCL 50 MG ORAL TABLET (SERTRALINE HCL) take one tablet by mouth daily #30[Tablet] x 1 Route:ORAL Entered and Authorized by: Zara HALE Method used: Electronically to [facility] (retail) [address] [place] [address] Note to Pharmacy: Route: ORAL; Indications: PANIC DISORDER RxID: [id number] signed by Zara HALE on 12/10/2019 at 10:30 PM Name Value Range Interpretation Code Description Data Juliette rce(s) Supporting Document(s) Procedure Social History No Information Vital Signs ID Date Data Source UNK Name Value Range Interpretation Code Description Data Source(s) Body height 71 [in_i] 71 [in_i] [facility] ([facility]) Body mass index (BMI) [Ratio] 36.9 kg/m2 36.9 k g/m2 [place] ([facility]) Systolic blood pressure 123 mm[Hg] 123 mm[Hg] A THENA ([facility]) Body weight 4230.4 [oz_av] 4230.4 [oz_av] ATHEN A ([facility]) Diastolic blood pressure 80 mm[Hg] 80 mm[Hg] [place] ([facility]) Systolic blood pressure 124 mm[Hg] 124 mm[Hg] M EDENT ([facility], [facility]) Body mass index (BMI) [Ratio] 34.9 kg/m2 34.9 k g/m2 MEDENT ([facility], [facility]) Diastolic blood pressure 78 mm[Hg] 78 mm[Hg] MEDENT ([facility], [facility]) Heart rate 70 /min 70 /min MEDENT ([facility], [facility]) Respiratory rate 16 /min 16 /[facility], [facility]) Oxygen saturation in Arterial blood by Pulse oximetry 97 % 97 % MEDENT ([facility], [facility]) Body temperature 97.7 [degF] 97.7 [degF] MEDENT ([facility], [facility]) Body weight 250.00 [lb_av] 250.00 [lb_av] MEDEN T ([facility], [facility]) Body height 71 [in_i] 71 [in_i] MEDENT ([facility], [facility]) 5'11" Body weight 4328 [oz_av] 4328 [oz_av] TEODORO ([facility]) Diastolic blood pressure 79 mm[Hg] 79 mm[Hg] [facility] ([facility]) Body height 71 [in_i] 71 [in_i] [facility] ([facility]) Body mass index (BMI) [Ratio] 37.7 kg/m2 37.7 k g/m2 [facility] ([facility]) Systolic blood pressure 128 mm[Hg] 128 mm[Hg] A THENA ([facility]) Diastolic blood pressure 79 mm[Hg] 79 mm[Hg] [facility] ([facility]) Body height 71 [in_i] 71 [in_i] [facility] ([facility]) Body mass index (BMI) [Ratio] 37.7 kg/m2 37.7 k g/m2 [facility] ([facility]) Systolic blood pressure 128 mm[Hg] 128 mm[Hg] [facility] Body weight 4328 [oz_av] 4328 [oz_av] [facility] ([facility]) Body height 71 [in_i] 71 [in_i] [facility] ([facility]) Body height 71 [in_i] 71 [in_i] [facility] ([facility]) Body height 71 [in_i] 71 [in_i] [facility] ([facility]) Diastolic blood pressure 83 mm[Hg] 83 mm[Hg] [facility] ([facility]) Body height 71 [in_i] 71 [in_i] [facility] ([facility]) Body mass index (BMI) [Ratio] 42.9 kg/m2 42.9 k g/m2 [facility] ([facility]) Systolic blood pressure 129 mm[Hg] 129 mm[Hg] [facility] Body weight 4920 [oz_av] 4920 [oz_av] [facility] ([facility]) Systolic blood pressure 129 mm[Hg] 129 mm[Hg] [facility] Body weight 4920 [oz_av] 4920 [oz_av] [facility] ([facility]) Diastolic blood pressure 83 mm[Hg] 83 mm[Hg] [facility] ([facility]) Body height 71 [in_i] 71 [in_i] [facility] ([facility]) Body mass index (BMI) [Ratio] 42.9 kg/m2 42.9 k g/m2 [facility] ([facility]) Diastolic blood pressure 83 mm[Hg] 83 mm[Hg] [facility] ([facility]) Body height 71 [in_i] 71 [in_i] [facility] ([facility]) Body mass index (BMI) [Ratio] 42.9 kg/m2 42.9 k g/m2 [facility] ([facility]) Systolic blood pressure 129 mm[Hg] 129 mm[Hg] A THENA ([facility]) Body weight 4920 [oz_av] 4920 [oz_av] [facility] ([facility]) Diastolic blood pressure 83 mm[Hg] 83 mm[Hg] [facility] ([facility]) Body height 71 [in_i] 71 [in_i] [facility] ([facility]) Body mass index (BMI) [Ratio] 42.9 kg/m2 42.9 k g/m2 [facility] ([facility]) Systolic blood pressure 129 mm[Hg] 129 mm[Hg] A THENA ([facility]) Body weight 4920 [oz_av] 4920 [oz_av] [facility] ([facility]) Diastolic blood pressure 83 mm[Hg] 83 mm[Hg] [facility] ([facility]) Body height 71 [in_i] 71 [in_i] [facility] ([facility]) Body mass index (BMI) [Ratio] 42.5 kg/m2 42.5 k g/m2 [facility] ([facility]) Systolic blood pressure 126 mm[Hg] 126 mm[Hg] A THENA ([facility]) Body weight 4880 [oz_av] 4880 [oz_av] [facility] ([facility]) Diastolic blood pressure 83 mm[Hg] 83 mm[Hg] [facility] ([facility]) Body height 71 [in_i] 71 [in_i] [facility] ([facility]) Body mass index (BMI) [Ratio] 42.5 kg/m2 42.5 k g/m2 [facility] ([facility]) Systolic blood pressure 126 mm[Hg] 126 mm[Hg] A THENA ([facility]) Diastolic blood pressure 83 mm[Hg] 83 mm[Hg] [facility] ([facility]) Body weight 4880 [oz_av] 4880 [oz_av] [facility] ([facility]) Diastolic blood pressure 83 mm[Hg] 83 mm[Hg] TEOODRO ([facility]) Body height 71 [in_i] 71 [in_i] [facility] ([facility]) Body mass index (BMI) [Ratio] 42.5 kg/m2 42.5 k g/m2 [facility] ([facility]) Systolic blood pressure 126 mm[Hg] 126 mm[Hg] [facility] Body weight 4880 [oz_av] 4880 [oz_av] [facility] ([facility]) Body height 71 [in_i] 71 [in_i] [facility] ([facility]) Body mass index (BMI) [Ratio] 42.5 kg/m2 42.5 k g/m2 [facility] ([facility]) Systolic blood pressure 126 mm[Hg] 126 mm[Hg] A THENA ([facility]) Body weight 4880 [oz_av] 4880 [oz_av] [facility] ([facility]) Diastolic blood pressure 83 mm[Hg] 83 mm[Hg] [facility] ([facility]) Body height 71 [in_i] 71 [in_i] [facility] ([facility]) Body mass index (BMI) [Ratio] 42.5 kg/m2 42.5 k g/m2 [facility] ([facility]) Systolic blood pressure 126 mm[Hg] 126 mm[Hg] A THENA ([facility]) Body weight 4880 [oz_av] 4880 [oz_av] [facility] ([facility]) Diastolic blood pressure 83 mm[Hg] 83 mm[Hg] [facility] ([facility]) Body height 71 [in_i] 71 [in_i] [facility] ([facility]) Body mass index (BMI) [Ratio] 42.5 kg/m2 42.5 k g/m2 [facility] ([facility]) Systolic blood pressure 126 mm[Hg] 126 mm[Hg] A THENA ([facility]) Body weight 4880 [oz_av] 4880 [oz_av] [facility] ([facility]) Diastolic blood pressure 87 mm[Hg] 87 mm[Hg] [facility] ([facility]) Body height 70 [in_i] 70 [in_i] [facility] ([facility]) Body mass index (BMI) [Ratio] 43.69 kg/m2 43.69 kg/m2 [facility] ([facility]) Systolic blood pressure 134 mm[Hg] 134 mm[Hg] A THENA ([facility]) Body weight 4854.08 [oz_av] 4854.08 [oz_av] ATH SHIRA ([facility]) Diastolic blood pressure 87 mm[Hg] 87 mm[Hg] [facility] ([facility]) Body height 70 [in_i] 70 [in_i] [facility] ([facility]) Body mass index (BMI) [Ratio] 43.69 kg/m2 43.69 kg/m2 [facility] ([facility]) Systolic blood pressure 134 mm[Hg] 134 mm[Hg] A THENA ([facility]) Body weight 4854.08 [oz_av] 4854.08 [oz_av] ATH SHIRA ([facility]) Diastolic blood pressure 87 mm[Hg] 87 mm[Hg] [facility] ([facility]) Body height 70 [in_i] 70 [in_i] [facility] ([facility]) Body mass index (BMI) [Ratio] 43.69 kg/m2 43.69 kg/m2 [facility] ([facility]) Systolic blood pressure 134 mm[Hg] 134 mm[Hg] A THENA ([facility]) Body weight 4854.08 [oz_av] 4854.08 [oz_av] ATH SHIRA ([facility]) Patient Treatment Plan of Care Planned Activity Planned Date Details Description Data Source (s) vitamin d3 25 mcg (1000 ut) tabs [facility] ([facility]) Sertraline 50 MG Oral Tablet [facility] ([facility]) Penicillin V Potassium 500 MG Oral Tablet [facility] ([facility]) Ibuprofen 600 MG Oral Tablet [facility] ([facility]) Cholecalciferol 99616 UNT Oral Capsule [facility] ([facility]) Sertraline 50 MG Oral Tablet [facility] ([facility]) Penicillin V Potassium 500 MG Oral Tablet [facility] ([facility]) Ibuprofen 600 MG Oral Tablet [facility] ([facility]) Sertraline 50 MG Oral Tablet [facility] ([facility]) Penicillin V Potassium 500 MG Oral Tablet [facility] ([facility]) Ibuprofen 600 MG Oral Tablet [facility] ([facility]) Sertraline 50 MG Oral Tablet [facility] ([facility]) Penicillin V Potassium 500 MG Oral Tablet [facility] ([facility]) Ibuprofen 600 MG Oral Tablet [facility] ([facility]) Penicillin V Potassium 500 MG Oral Tablet [facility] ([facility]) Ibuprofen 600 MG Oral Tablet [facility] ([facility]) Penicillin V Potassium 500 MG Oral Tablet [facility] ([facility]) Ibuprofen 600 MG Oral Tablet [facility] ([facility])
--- NOTE | 2021-01-13 10:06 | REP ---
INDICATION: injury COMPARISON: None. TECHNIQUE: AP, lateral, bilateral oblique views left hand. FINDINGS: The osseous structures and joint spaces are intact and normal. There is no evidence for acute fracture or dislocation. Surrounding soft tissues are unremarkable. No subcutaneous emphysema or radiodense foreign body. IMPRESSION: . No acute fracture or dislocation. <Electronically signed by Jacinto Burgos > 01/13/21 1002
--- NOTE | 2021-01-13 10:07 | REP ---
INDICATION: injury COMPARISON: None. TECHNIQUE: AP, lateral, bilateral oblique views left wrist. FINDINGS: The carpal bones, surrounding osseous structures, soft tissues, and joint spaces are normal. There is no evidence for acute fracture or dislocation. No subcutaneous emphysema or radiodense foreign body. IMPRESSION: Normal wrist series. No acute fracture or dislocation. <Electronically signed by Jacinto Burgos > 01/13/21 3319
--- OUTSIDE RECORDS SUMMARY | 2021-01-13 10:58 | CCD ---
Author Author [facility] Organization [facility] Address Unknown Phone Unavailable Care Team Providers Care Drawing Operator Name Role Phone Manasa Reeves NP Unavailable Unavailable Manasa Reeves NP Unavailable Unavailable Manasa Reeves NP Unavailable Unavailable Manasa Reeves NP Unavailable Unavailable Manasa Reeves NP Unavailable Unavailable Reeves, Manasa LAW EXAMINER Unavailable Unavailable Reeves, Manasa LAW EXAMINER Unavailable Unavailable Reeves, Manasa LAW EXAMINER Unavailable Unavailable Reeves, Manasa LAW EXAMINER Unavailable Unavailable Reeves, Manasa LAW EXAMINER Unavailable Unavailable Reeves, Manasa LAW EXAMINER Unavailable Unavailable Reeves, Manasa LAW EXAMINER Unavailable Unavailable Reeves, Manasa LAW EXAMINER Unavailable Unavailable Abran, Zara SERVICE ADMINISTRATOR SERVICE ADMINISTRATOR Unavailable Unavailable Fulshear, A Zara SERVICE ADMINISTRATOR Unavailable Unavailable Fulshear, A Zara SERVICE ADMINISTRATOR Unavailable Unavailable Fulshear, A Zara SERVICE ADMINISTRATOR Unavailable Unavailable Fulshear, A Zara SERVICE ADMINISTRATOR Unavailable Unavailable Fulshear, A Zara SERVICE ADMINISTRATOR Unavailable Unavailable Fulshear, A Zara SERVICE ADMINISTRATOR Unavailable Unavailable Fulshear, A Zara SERVICE ADMINISTRATOR Unavailable Unavailable Fulshear, A Zara SERVICE ADMINISTRATOR Unavailable Unavailable Fulshear, A Zara SERVICE ADMINISTRATOR Unavailable Unavailable Fulshear, A Zara SERVICE ADMINISTRATOR Unavailable Unavailable Fulshear, A Zara SERVICE ADMINISTRATOR Unavailable Unavailable Fulshear, A Zara SERVICE ADMINISTRATOR Unavailable Unavailable Fulshear, A Zara SERVICE ADMINISTRATOR Unavailable Unavailable Fulshear, A Zara SERVICE ADMINISTRATOR Unavailable Unavailable Fulshear, A Zara SERVICE ADMINISTRATOR Unavailable Unavailable Fulshear, A Zara SERVICE ADMINISTRATOR Unavailable Unavailable Fulshear, A Zara SERVICE ADMINISTRATOR Unavailable Unavailable Fulshear, A Zara SERVICE ADMINISTRATOR Unavailable Unavailable Fulshear, A Zara SERVICE ADMINISTRATOR Unavailable Unavailable Fulshear, A Zara SERVICE ADMINISTRATOR Unavailable Unavailable Fulshear, A Zara SERVICE ADMINISTRATOR Unavailable Unavailable Fulshear, A Zara SERVICE ADMINISTRATOR Unavailable Unavailable Fulshear, A Zara SERVICE ADMINISTRATOR Unavailable Unavailable Fulshear, A Zara SERVICE ADMINISTRATOR Unavailable Unavailable Fulshear, A Zara SERVICE ADMINISTRATOR Unavailable Unavailable Fulshear, A Zara SERVICE ADMINISTRATOR Unavailable Unavailable Fulshear, A Zara SERVICE ADMINISTRATOR Unavailable Unavailable Fulshear, A Azra SERVICE ADMINISTRATOR Unavailable Unavailable Fulshear, A Zara SERVICE ADMINISTRATOR Unavailable Unavailable Fulshear, A Zara SERVICE ADMINISTRATOR Unavailable Unavailable Fulshear, A Zara SERVICE ADMINISTRATOR Unavailable Unavailable Fulshear, A Zara SERVICE ADMINISTRATOR Unavailable Unavailable Fulshear, A Zara SERVICE ADMINISTRATOR Unavailable Unavailable Fulshear, A Zara SERVICE ADMINISTRATOR Unavailable Unavailable Fulshear, A Zara SERVICE ADMINISTRATOR Unavailable Unavailable Fulshear, A Zara SERVICE ADMINISTRATOR Unavailable Unavailable Fulshear, A Zara SERVICE ADMINISTRATOR Unavailable Unavailable Fulshear, A Zara SERVICE ADMINISTRATOR Unavailable Unavailable Fulshear, A Zara SERVICE ADMINISTRATOR Unavailable Unavailable Fulshear, A Zara SERVICE ADMINISTRATOR Unavailable Unavailable Fulshear, A Zara SERVICE ADMINISTRATOR Unavailable Unavailable Fulshear, A Zara SERVICE ADMINISTRATOR Unavailable Unavailable Abran, A Zara SERVICE ADMINISTRATOR Unavailable Unavailable Abran, A Zara SERVICE ADMINISTRATOR Unavailable Unavailable Abran, A Zara SERVICE ADMINISTRATOR Unavailable Unavailable Abran, A Zara SERVICE ADMINISTRATOR Unavailable Unavailable Abran, A Zara SERVICE ADMINISTRATOR Unavailable Unavailable Abran, A Zara SERVICE ADMINISTRATOR Unavailable Unavailable Abran, A Zara SERVICE ADMINISTRATOR Unavailable Unavailable Abran, A Zara SERVICE ADMINISTRATOR Unavailable Unavailable Abran, A Zara SERVICE ADMINISTRATOR Unavailable Unavailable Abran, A Zara SERVICE ADMINISTRATOR Unavailable Unavailable Abran, A Zara SERVICE ADMINISTRATOR Unavailable Unavailable Abran, A Zara SERVICE ADMINISTRATOR Unavailable Unavailable Abran, A Zara SERVICE ADMINISTRATOR Unavailable Unavailable Abran, A Zara SERVICE ADMINISTRATOR Unavailable Unavailable Abran, A Zara SERVICE ADMINISTRATOR Unavailable Unavailable Abran, A Zara SERVICE ADMINISTRATOR Unavailable Unavailable Abran, A Zara SERVICE ADMINISTRATOR Unavailable Unavailable Abran, A Zara SERVICE ADMINISTRATOR Unavailable Unavailable Abran, A Zara SERVICE ADMINISTRATOR Unavailable Unavailable Abran, A Zara SERVICE ADMINISTRATOR Unavailable Unavailable Re-disclosure Warning The records that [...] is protected by Article 27-F of the [facility] Public Health law. If you continue you may have access to information: Regarding HIV / AIDS; Provided by facilities licensed or operated by the [facility] Office of Mental Health; or Provided by the [facility] Office for People With Developmental Disabilities. If such information is present, then the following [facility] mandated warning applies: This information has been [...] law may result in a fine or halfway sentence or both. A general authorization for the release of medical or other information is NOT sufficient authorization for further disc losure. Family History Family Member Name Family Member Gender Family Member Status Date o f Status Description Data Source(s) Unknown Unknown Problem [facility] ([facility], ) Unknown Unknown Problem [facility] ([facility], ) Unknown Unknown Problem [facility] ([facility], [facility]) Encounters Encounter Providers Location Date Indications Data Source(s ) EDEL Ocampo: [address], [place] [address], Ph. Attender: Zara Osullivan [facility] 09/15/2020 12:00:00 AM EDT [employer] ([facility]) Outpatient Attender: Manasa bautista 09/08/2020 01:00:00 PM EDT [facility] ([facility]) OSBALDO Ocampo: [address], [place] [address], Ph. Attender: Zara Osullivan [facility] 07/27/2020 12:00:00 AM EDT [facility]) OSBALDO Ocampo: [address], [place] [address], Ph. Attender: Zara Osullivan [facility] 07/27[facility]2020 [facility]: [address], [place] [address], Ph. Attender: Zara Osullivan [facility] 07/07/2020 12:00:00 AM EDT [place] ([facility]) Zara Osullivan [facility]: [address], [place] [address], Ph. Attender: Zara Osullivan [facility] 07/07/2020 12:00:00 AM EDT [place] ([facility]) Zara Osullivan [facility]: [address], [place] [address], Ph. Attender: Zara Osullivan [facility] 07/07/2020 12:00:00 AM EDT [place] ([facility]) Zara Osullivan [facility]: [address], [place] [address], Ph. Attender: Zara Osullivan [facility] 03/10/2020 12:00:00 AM EST [facility] ([facility]) Zara Osullivan [facility]: [address], [place] [address], Ph. Attender: Zara Osullivan [facility] 03/10/2020 12:00:00 AM EST [place] ([facility]) [facility]: [address], [place] [address], Ph. Attender: Zara Osullivan [facility] 03/10/2020 12:00:00 AM EST [facility] ([facility]) [facility]: [address], [place] [address], Ph. Attender: Zara Osullivan [facility] 03/10/2020 12:00:00 AM EST [facility] ([facility]) Zara Osullivan [facility]: [address], [place] [address], Ph. Attender: Zara Osullivan [facility] 03/02/2020 12:00:00 AM EST [facility] ([facility]) Zara Osullivan [facility]: [address], [place] [address], Ph. Attender: Zara Osullivan [facility] 03/02/2020 12:00:00 AM EST [facility] ([facility]) Zara Osullivan [facility]: [address], [place] [address], Ph. Attender: Zara Osullivan [facility] 03/02/2020 12:00:00 AM EST [facility] ([facility]) Zara Osullivan [facility]: [address], [place] [address], Ph. Attender: Zara Osullivan [facility] 03/02/2020 12:00:00 AM EST [facility] ([facility]) Zara Osullivan [facility]: [address], [place] [address], Ph. Attender: Zara Osullivan [facility] 03/02/2020 12:00:00 AM EST [facility] ([facility]) Zara Osullivan [facility]: [address], [place] [address], Ph. Attender: Zara Osullivan [facility] 02/03/2020 12:00:00 AM EST [facility] ([facility]) Zara Osullivan [facility]: [address], [place] [address], Ph. Attender: Zara Osullivan [facility] 02/03/2020 12:00:00 AM EST [facility] ([facility]) Zara Osullivan [facility]: [address], [place] [address], Ph. Attender: Zara Osullivan [facility] 02/03/2020 12:00:00 AM EST [facility] ([facility]) Zara Osullivan [facility]: [address], [place] [address], Ph. Attender: Zara Osullivan [facility] 02/03/2020 12:00:00 AM EST [facility] ([facility]) Zara Osullivan [facility]: [address], [place] [address], Ph. Attender: Zara Osullivan [facility] 02/03/2020 12:00:00 AM EST [facility] ([facility]) Zara Osullivan [facility]: [address], [place] [address], Ph. Attender: Zara Osullivan [facility] 02/03/2020 12:00:00 AM EST [facility] ([facility]) Outpatient Attender: ALEXIA HALE 01/20/2020 02:50:00 P M EDT [facility] Outpatient Attender: ALEXIA HALE 01/13/2020 09:09:01 A M EDT [facility] Outpatient Attender: Zara HAMMERBANNER 12/23/2019 01:3 2:00 PM EDT [facility] Outpatient Attender: ALEXIA ROONEY 12/13/2019 08:20:01 A M EDT [facility] Outpatient Attender: ALEXIA HAMMERBANNER 12/10/2019 10:32:00 P M EDT [facility] Outpatient Attender: ALEXIA HAMMERP FP 12/10/2019 09:24:02 A M EDT [facility] Outpatient Attender: ALEXIA HAMMERP FP 12/06/2019 03:39:01 P M EDT [facility] Outpatient Attender: ALEXIA HAMMERP FP 11/29/2019 11:52:01 A M EDT [facility] Outpatient Attender: Zara HAMMERP FP 11/29/2019 11:5 2:00 AM EDT [facility] Outpatient Attender: ALEXIA HAMMERP FP 11/22/2019 07:33:01 A M EDT [facility] Outpatient Attender: ALEXIA HALE FP 11/15/2019 02:14:00 P M EDT [facility] Outpatient Attender: Zara HAMMERP FP 11/15/2019 02:1 3:00 PM EDT [facility] Outpatient Attender: ALEXIA HAMMERBANNER 11/15/2019 08:16:00 A M EDT [facility] Immunizations Vaccine Date Status Description Data Source(s) COVID-19 vaccine, vector-nr, [id number], PF, 0.5 mL 06/03/2020 12:00:00 AM EST completed 06/03/2020 [facility] ([facility]) COVID-19 VACCINE Ksenia 06/03/2020 12:00:00 AM EST completed [facility] Vaccine Series Complete: YESThis Data wa s Submitted to [facility] Via [employer]. Medications Medication Brand Name Start Date Product [...] completed sertraline 50 MG Oral Tablet [facility] ([facility]) Sertraline 50 MG Oral Tablet sertraline 50 mg tablet TAKE ONE TABLET BY MOUTH EVERY DAY sertraline 50 mg tablet TAKE ONE TABLET BY MOUTH EVERY DAY completed sertraline 50 MG Oral Tablet [facility] ([facility]) Ibuprofen 600 MG Oral Tablet ibuprofen 600 mg tablet ibuprofen 6 00 mg tablet completed ibuprofen 600 MG Oral Tablet [facility] ([facility]) Sertraline 50 MG Oral Tablet sertraline 50 mg tablet TAKE ONE TABLET BY MOUTH EVERY DAY sertraline 50 mg tablet TAKE ONE TABLET BY MOUTH EVERY DAY completed sertraline 50 MG Oral Tablet [facility] ([facility]) Penicillin V Potassium 500 MG Oral Tablet penicillin V potassium 500 mg tablet penicillin V potassium 500 mg tablet c ompleted penicillin V potassium 500 MG Oral Tablet [facility] ([facility]) Penicillin V Potassium 500 MG Oral Tablet penicillin V potassium 500 mg tablet penicillin V potassium 500 mg tablet c ompleted penicillin V potassium 500 MG Oral Tablet [facility] ([facility]) Ibuprofen 600 MG Oral Tablet ibuprofen 600 mg tablet ibuprofen 6 00 mg tablet completed ibuprofen 600 MG Oral Tablet [facility] ([facility]) vitamin d3 25 mcg (1000 ut) tabs completed vitamin d3 25 mcg (1000 ut) tabs [facility] ([facility]) Penicillin V Potassium 500 MG Oral Tablet penicillin V potassium 500 mg tablet penicillin V potassium 500 mg tablet c ompleted penicillin V potassium 500 MG Oral Tablet [facility] ([facility]) Ibuprofen 600 MG Oral Tablet ibuprofen 600 mg tablet ibuprofen 6 00 mg tablet completed ibuprofen 600 MG Oral Tablet [facility] ([facility]) Penicillin V Potassium 500 MG Oral Tablet penicillin V potassium 500 mg tablet penicillin V potassium 500 mg tablet c ompleted penicillin V potassium 500 MG Oral Tablet [facility] ([facility]) Penicillin V Potassium 500 MG Oral Tablet penicillin V potassium 500 mg tablet penicillin V potassium 500 mg tablet c ompleted penicillin V potassium 500 MG Oral Tablet [facility] ([facility]) Ibuprofen 600 MG Oral Tablet ibuprofen 600 mg tablet ibuprofen 6 00 mg tablet completed ibuprofen 600 MG Oral Tablet [facility] ([facility]) Cholecalciferol 17980 UNT Oral Capsule c holecalciferol (vitamin D3) 1,250 mcg (50,000 unit) capsule cholecalciferol (vitamin D3) 1,250 mcg ( 50,000 unit) capsule completed cholecalcifero l 1.25 MG Oral Capsule [facility] ([facility]) Penicillin V Potassium 500 MG Oral Tablet penicillin V potassium 500 mg tablet penicillin V potassium 500 mg tablet c ompleted penicillin V potassium 500 MG Oral Tablet [facility] ([facility]) Ibuprofen 600 MG Oral Tablet ibuprofen 600 mg tablet ibuprofen 6 00 mg tablet completed ibuprofen 600 MG Oral Tablet [facility] ([facility]) Sertraline 50 MG Oral Tablet sertraline 50 mg tablet TAKE ONE TABLET BY MOUTH EVERY DAY sertraline 50 mg tablet TAKE ONE TABLET BY MOUTH EVERY DAY completed sertraline 50 MG Oral Tablet [facility] ([facility]) Ibuprofen 600 MG Oral Tablet ibuprofen 600 mg tablet ibuprofen 6 00 mg tablet completed ibuprofen 600 MG Oral Tablet [facility] ([facility]) Insurance Providers Payer name Policy type / Coverage type Policy ID Covered democrat ID Covered democrat's relationship to eubanks Policy Eubanks Plan Information [facility] [id number] SP [id number] BS [facility] Hmo Blue Option Commercial [id number] Self State Ins Fund() Workers Compensation [id number] Self State Ins Fund() Workers Compensation [id number] Self [id number] [facility] COMMUNITY PLAN MCDO [id number] SP [id number] Medicaid S [id number] S [id number] MEDICAID [id number] SP [id number] [place] [id number] SP [id number] Managed Care - [facility] Community Plan P [id number] S [id number] Medicaid S [id number] S [id number] Managed Care - [facility] P UNAVAILABLE S UNAVAILABLE UNHC COMMUNITY PLAN MCDHMO [id number] SP [id number] STATE INSURANCE FUND [id number] SP [id number] STATE INSURANCE FUND O [id number] S [id number] SELF PAY O [id number] S [id number] [facility] INS FUND [id number] SP [id number] [facility] Health Maintenance Organization (HMO) [id number] Self UNHC COMMUNITY PLAN MCDO [id number] SP [id number] BLUE CROSS CRYSTAL PLAN [id number] SP [id number] HMO BLUE [id number] SP [id number] HMO BLUE [id number] SP [id number]ING[employer] WORKER COMP [id number] SP [id number] SELF PAY UNAVAILABLE SP UNAVAILA BLE [facility](MCAID) P [id number] S [id number] UNHC COMMUNITY PLAN MCDO [id number] SP [id number] [facility] COMM[facility] PL[facility] [id number] SP [id number] [place] [id number] SP [id number] Self Pay P [id number] O [id number] O UNAVAILABLE UNAVAILA BLE SELF PAY ONLY [id number] SP [id number] MEDICAID [id number] SP [id number] [facility] Health Maintenance Organization (O) [id number] Self [id number] UN COMMUNITY PLAN [facility] [id number] SP [id number] [facility] Health Maintenance Organization (HMO) [id number] Self Problems, Conditions, and Diagnoses Code Display Name Description Problem Type Effective Dates Data Source(s) 531959009 Body mass index 30+ - obesity Body Mass Index 30+ - Ob esity Problem 07/31/2020 12:00:00 AM EDTanja VALERIO [facility]) [id number] Body mass index 30+ - obesity Body Mass Index 30+ - Ob esity Problem 07/31/2020 12:00:00 AM EDT [employer] ([facility]) 66919943 Upper abdominal pain, unspecified Upper abdominal pain , unspecified 12/10/2019 10:30:01 PM EDT [facility] 61536047 Hyperlipidemia, unspecified Hyperlipidemia, unspecifie d 12/10/2019 10:30:01 PM EDT [facility] R73.03 Prediabetes Prediabetes 12/10/2019 10:30:01 PM EDT [facility] 268.9 vitamin D deficiency vitamin D deficiency 12/09 09:22:40 AM EDT [facility] V65.8 Person consulting for explanation of exa mination or test findings Person consulting for explanation of examination or test findings 12/10/2019 09:22:40 AM EDT [facility] S39.91xA Unspecified injury of abdomen, initial e ncounter Unspecified injury of abdomen, initial encounter 12/10/2019 09:22:40 AM EDT [facility] [id number] Patient asked to attend Patient Asked to Attend [facility] 12/10/2019 12:00:00 AM EDT [employer] ([facility]) 58422904 Injury of trunk Injury of Trunk Problem 12/10/2019 12:0 0:00 AM EDT [facility]) 99446276 Pain Pain Problem 12/10/2019 12:00:00 AM ED T [facility]) 327540470 Prediabetes Prediabetes Problem 12/10/2019 12:00:00 AM EDT [employer] ([facility]) 35972908 Hyperlipidemia Hyperlipidemia Problem 12/10/2019 12:00: 00 AM EDT [employer] ([facility]) 91380572 Vitamin D deficiency Vitamin D Deficiency Problem 12/10/2019 12:00:00 AM EDT [employer] ([facility]) 203439590 Patient asked to attend Patient Asked to Attend [facility] 12/10/2019 12:00:00 AM EDT [employer] ([facility]) 77423611 Injury of trunk Injury of Trunk Problem 12/10/2019 12:0 0:00 AM EDT [facility]) 45036571 Pain Pain Problem 12/10/2019 12:00:00 AM ED T [employer] ([facility]) 329346804 Prediabetes Prediabetes Problem 12/10/2019 12:00:00 AM EDT [employer] ([facility]) 54714212 Hyperlipidemia Hyperlipidemia Problem 12/10/2019 12:00: 00 AM EDT [employer] ([facility]) 13186401 Vitamin D deficiency Vitamin D Deficiency Problem 12/10/2019 12:00:00 AM EDT [employer] ([facility]) 432105296 Patient asked to attend Patient Asked to Attend Proble m 12/10/2019 12:00:00 AM EDT [employer] ([facility]) 88140680 Injury of trunk Injury of Trunk Problem 12/10/2019 12:0 0:00 AM EDT [employer] ([facility]) 00321120 Pain Pain Problem 12/10/2019 12:00:00 AM ED T [employer] ([facility]) 386020069 Prediabetes Prediabetes Problem 12/10/2019 12:00:00 AM EDT [employer] ([facility]) 71805099 Hyperlipidemia Hyperlipidemia Problem 12/10/2019 12:00: 00 AM EDT [employer] ([facility]) 85617229 Vitamin D deficiency Vitamin D Deficiency Problem 12/10/2019 12:00:00 AM EDT [employer] ([facility]) 300.02 GENERALIZED ANXIETY DISORDER GENERALIZED ANXIETY DISOR TRACY 11/15/2019 02:12:27 PM EDT [facility] 300.01 PANIC DISORDER PANIC DISORDER 11/15/2019 02:12: 27 PM EDT [facility] 912869722 Panic disorder Panic Disorder Problem 11/15/2019 12:00: 00 AM EDT [employer] ([facility]) 46046029 Generalized anxiety disorder Generalized Anxiety Disor tracy Problem 11/15/2019 12:00:00 AM EDT [employer] ([facility]) 040140521 Panic disorder Panic Disorder Problem 11/15/2019 12:00: 00 AM EDT [employer] ([facility]) 96906790 Generalized anxiety disorder Generalized Anxiety Disor tracy Problem 11/15/2019 12:00:00 AM EDT [employer] ([facility]) 117501347 Panic disorder Panic Disorder Problem 11/15/2019 12:00: 00 AM EDT [employer] ([facility]) 83313522 Generalized anxiety disorder Generalized Anxiety Disor tracy Problem 11/15/2019 12:00:00 AM EDT [employer] ([facility]) Surgeries/Procedures No Information Results ID Date Data Source [id number] 09/09/2020 10:05:00 PM EDT [facility] ([facility]) Name Value Range Interpretation Code Description Data Juliette rce(s) Supporting Document(s) D-dimer quant < 270 <500 D-dimer Quant [employer] ( [facility]) ID Date Data Source [id number] 09/08/2020 01:54:00 PM EDT [facility] ([facility]) Name Value Range Interpretation Code Description Data Juliette rce(s) Supporting Document(s) Glucose, Fasting 78 mg/dL 70-100 [facility] ([facility], [facility]) Blood Urea Nitrogen 11 mg/dL 7-18 [facility] ([facility], [facility]) Creatinine For GFR 0.72 mg/dL 0.70-1.30 [facility] ([facility]) Glomerular Filtration Rate [facility] <content>Units are mL/min/1.73 m2</content>
<content></content>
<content>Chronic Kidney Disease Staging per NKF:</content>
<content></content>
<content>Stage I & II GFR >=60 Normal to Mildly Decreased</content>
<content>Stage III GFR 30-59 Moderately Decreased</content>
<content>Stage IV GFR 15-29 Severely Decreased</content>
<content>Stage V GFR <15 Very Little GFR Left</content>
<content>ESRD GFR <15 on ASSISTANT FRONT END MANAGER</content>
<content></content> Sodium Level 139 meq/L 136-145 [facility] ([facility], [facility]) Chloride Level 107 meq/L 98-107 [facility] ([facility], [facility]) Potassium Serum 3.9 meq/L 3.5-5.1 [facility] ([facility], [facility]) Carbon Dioxide Level 25 meq/L 21-32 [facility] SYSTEM) Anion Gap 7 meq/L 8-16 MEDENT ([facility], [facility]) Calcium Level 8.9 mg/dL 8.5-10.1 MEDENT ([facility], [facility]) Ast/Sgot 24 U/L 7-37 MEDENT ([facility], [facility]) Alt/SGPT 42 U/L 12-78 MEDENT ([facility], [facility]) Alkaline Phosphatase 98 U/L 45-117 [facility] ( [facility]) Bilirubin,Total 0.3 mg/dL 0.2-1.0 MEDENT ([facility], [facility]) Total Protein 7.1 GM/DL 6.4-8.2 MEDENT ([facility], [facility]) Albumin 4.2 GM/DL 3.2-5.2 MEDENT ([facility], [facility]) Albumin/Globulin Ratio 1.4 MEDENT ([place] [facility], [facility]) ID Date Data Source [id number] 09/08/2020 01:54:00 PM EDT MEDENT ([facility], [facility]) Name Value Range Interpretation Code Description Data Juliette rce(s) Supporting Document(s) Red Blood Count 5.02 10 4.30-6.10 MEDENT ([facility], [facility]) White Blood Count 8.0 10 4.0-10.0 MEDENT ([facility], [facility]) Hemoglobin 14.3 g/dL 13.5-17.5 MEDENT ([place] [facility], [facility]) Mean Corpuscular Volume 87.5 fl 80.0-96.0 M EDENT ([facility] [facility], [facility]) Hematocrit 43.9 % 42.0-52.0 MEDENT ([place] [facility], [facility]) Mean Corpuscular Hemoglobin 28.5 pg 27.0-33.0 MEDENT ([facility], [facility]) Mean Corpuscular HGB Conc 32.6 g/dL 32.0-36.5 MEDENT ([facility], [facility]) Red Cell Distribution Width 12.6 % 11.5-14.5 MEDENT ([facility], [facility]) Platelet Count, Automated 279 10 150-450 MEDENT ([facility], [facility]) [place] % 6.4 % 2.0-8.0 MEDENT ([facility], [facility]) Lymph % 38.4 % 24.0-44.0 MEDENT ([facility] gent [facility], [facility]) Neutrophils % 50.0 % 36.0-66.0 MEDENT ([facility], [facility]) Eos % 4.5 % 0.0-3.0 MEDENT ([facility] gent [facility], [facility]) Baso % 0.6 % 0.0-1.0 MEDENT ([facility] gent [facility], [facility]) Immature Granulocyte % 0.1 % 0-3.0 MEDENT ([facility], [facility]) Nucleated Red Blood Cell % 0.0 % 0-0 MED ENT ([facility], [facility]) Neutrophils # 4.0 10 1.5-8.5 MEDENT ([facility], [facility]) [place] # 0.5 10 0.0-0.8 MEDENT ([facility] gent [facility], [facility]) Lymph # 3.1 10 1.5-5.0 MEDENT ([facility] gent [facility], [facility]) Baso # 0.1 10 0.0-0.2 MEDENT ([facility] gent [facility], [facility]) Eos # 0.4 10 0.0-0.5 MEDENT ([facility] gent [facility], [facility]) ID Date Data Source [id number] 09/08/2020 01:08:00 PM EDT MEDENT ([facility], [facility]) Name Value Range Interpretation Code Description Data Juliette rce(s) Supporting Document(s) Bacteria identified in Urine by Culture Laboratory test result MEDENT ([facility], [facility]) No rx ID Date Data Source [id number] 07/07/2020 08:24:00 AM EDT [employer] ([facility]) Name Value Range Interpretation Code Description Data Juliette rce(s) Supporting Document(s) Hemoglobin A1c/Hemoglobin.total in Blood 5.3 % Hemoglobin a1C [place] ([facility]) estimated average glucose 105 mg/dL 60-110 Estimated Average Glucose [place] ([facility]) ID Date Data Source [id number] 07/07/2020 08:24:00 AM EDT [place] ([facility]) Name Value Range Interpretation Code Description Data Juliette rce(s) Supporting Document(s) total 25(oh) vitamin D 26.6 NG/mL 30.0-100.0 Below low normal T otal 25(Oh) Vitamin D [place] ([facility]) ID Date Data Source [id number] 07/07/2020 08:24:00 AM EDT [place] ([facility]) Name Value Range Interpretation Code Description Data Juliette rce(s) Supporting Document(s) cholesterol level 187 mg/dL <200 Cholesterol Level [place] ([facility]) triglycerides level 116 mg/dL <150 Triglycerides Le thee [place] ([facility]) non-HDL-C 140 mg/dL Non-hdl-c [place] ([facility]) Cholesterol in LDL [Mass/volume] in Serum or Plasma 117 mg/dL <100 Above high normal LDL Cholesterol [place] ([facility]) HDL cholesterol 47 mg/dL >40 HDL Cholesterol ATHE NA ([facility]) cholesterol risk ratio <5 Cholesterol R isk Ratio [employer] ([facility]) ID Date Data Source [id number] 07/07/2020 08:24:00 [facility] Name Value Range Interpretation Code Description Data Juliette rce(s) Supporting Document(s) glucose, fasting 115 mg/dL 70-100 Above high normal Glucose, Fas ting [place] ([facility]) blood urea nitrogen 17 mg/dL 7-18 Blood Urea Nitro gen [place] ([facility]) creatinine for GFR 0.73 mg/dL 0.70-1.30 Creatinine for GF R [place] ([facility]) potassium serum 4.0 mEq/L 3.5-5.1 Potassium Serum ATHE NA ([facility]) glomerular filtration rate > 60.0 >60 Glomerula r Filtration Rate [place] ([facility]) sodium level 140 mEq/L 136-145 Sodium Level [place] (No [facility]) chloride level 108 mEq/L 98-107 Above high normal Chloride Level [place] ([facility]) anion gap 9 mEq/L 8-16 Anion Gap [place] ([facility]) carbon dioxide level 23 mEq/L 21-32 Carbon Dioxide Level [place] ([facility]) calcium level 9.2 mg/dL 8.5-10.1 Calcium Level [place] ( [facility]) ALT/SGPT 42 U/L 12-78 ALT/SGPT [place] ([facility]) AST/SGOT 19 U/L 7-37 AST/SGOT [place] ([facility]) bilirubin,total 0.2 mg/dL 0.2-1.0 Bilirubin,total ATHE NA ([facility]) alkaline phosphatase 101 U/L 45-117 Alkaline Phosph atase [place] ([facility]) total protein 7.3 gm/dL 6.4-8.2 Total Protein [place] ( [facility]) albumin/globulin ratio Albumin/globu blake Ratio [place] ([facility]) albumin 4.1 gm/dL 3.2-5.2 Albumin [place] ([facility]) ID Date Data Source [id number] 07/07/2020 08:24:00 AM EDT [place] ([facility]) Name Value Range Interpretation Code Description Data Juliette rce(s) Supporting Document(s) white blood count 6.9 10 4.0-10.0 White Blood Count [place] ([facility]) red blood count 5.18 10 4.30-6.10 Red Blood Count ATHE NA ([facility]) hematocrit 44.8 % 42.0-52.0 Hematocrit [place] ([facility]) hemoglobin 14.8 g/dL 13.5-17.5 Hemoglobin [place] ([facility]) mean corpuscular volume 86.5 fL 80.0-96.0 Mean Corpusc ular Volume [place] ([facility]) mean corpuscular hemoglobin 28.6 pg 27.0-33.0 Mean Cor puscular Hemoglobin [place] ([facility]) mean corpuscular HGB conc 33.0 g/dL 32.0-36.5 Mean Corpu scular HGB Conc [place] ([facility]) neutrophils % 59.5 % 36.0-66.0 Neutrophils % [place] ( [facility]) platelet count, automated 277 10 150-450 Platelet C ount, Automated [place] ([facility]) red cell distribution width 12.6 % 11.5-14.5 Red Cell Distribution Width [place] ([facility]) mono % 7.1 % 2.0-8.0 [place] % [place] ([facility]) lymph % 27.7 % 24.0-44.0 Lymph % [place] ([facility]) eos % 4.4 % 0.0-3.0 Above high normal Eos % [place] ([facility]) immature granulocyte % 0.3 % 0-3.0 Immature Gran ulocyte % [place] ([facility]) baso % 1.0 % 0.0-1.0 Baso % [place] ([facility]) nucleated red blood cell % 0.0 % 0-0 Nucleated Red Blood Cell % [place] ([facility]) neutrophils # 4.1 10 1.5-8.5 Neutrophils # [place] ( [facility]) eos # 0.3 10 0.0-0.5 Eos # [place] ([facility]) lymph # 1.9 10 1.5-5.0 Lymph # [place] ([facility]) mono # 0.5 10 0.0-0.8 [place] # [place] ([facility]) baso # 0.1 10 0.0-0.2 Baso # [place] ([facility]) ID Date Data Source [id number] 07/07/2020 08:24:00 AM EDT [place] ([facility]) Name Value Range Interpretation Code Description Data Juliette rce(s) Supporting Document(s) Hemoglobin A1c/Hemoglobin.total in Blood 5.3 % Hemoglobin a1C [place] ([facility]) estimated average glucose 105 mg/dL 60-110 Estimated Average Glucose [place] ([facility]) ID Date Data Source [id number] 07/07/2020 08:24:00 AM EDT [place] ([facility]) Name Value Range Interpretation Code Description Data Juliette rce(s) Supporting Document(s) total 25(oh) vitamin D 26.6 NG/mL 30.0-100.0 Below low normal T otal 25(Oh) Vitamin D [place] ([facility]) ID Date Data Source [id number] 07/07/2020 08:24:00 AM EDT [place] ([facility]) Name Value Range Interpretation Code Description Data Juliette rce(s) Supporting Document(s) cholesterol level 187 mg/dL <200 Cholesterol Level [place] ([facility]) triglycerides level 116 mg/dL <150 Triglycerides Le thee [place] ([facility]) HDL cholesterol 47 mg/dL >40 HDL Cholesterol ATHE NA ([facility]) Cholesterol in LDL [Mass/volume] in Serum or Plasma 117 mg/dL <100 Above high normal LDL Cholesterol [place] ([facility]) non-HDL-C 140 mg/dL Non-hdl-c [place] ([facility]) cholesterol risk ratio <5 Cholesterol R isk Ratio [place] ([facility]) ID Date Data Source [id number] 07/07/2020 08:24:00 AM EDT [place] ([facility]) Name Value Range Interpretation Code Description Data Juliette rce(s) Supporting Document(s) glucose, fasting 115 mg/dL 70-100 Above high normal Glucose, Fas ting [place] ([facility]) creatinine for GFR 0.73 mg/dL 0.70-1.30 Creatinine for GF R [place] ([facility]) glomerular filtration rate > 60.0 >60 Glomerula r Filtration Rate [place] ([facility]) blood urea nitrogen 17 mg/dL 7-18 Blood Urea Nitro gen [place] ([facility]) sodium level 140 mEq/L 136-145 Sodium Level [place] (No [facility]) chloride level 108 mEq/L 98-107 Above high normal Chloride Level [place] ([facility]) potassium serum 4.0 mEq/L 3.5-5.1 Potassium Serum ATHE ([facility]) anion gap 9 mEq/L 8-16 Anion Gap [place] ([facility]) carbon dioxide level 23 mEq/L 21-32 Carbon Dioxide Level [place] ([facility]) calcium level 9.2 mg/dL 8.5-10.1 Calcium Level [place] ( [facility]) AST/SGOT 19 U/L 7-37 AST/SGOT [place] ([facility]) ALT/SGPT 42 U/L 12-78 ALT/SGPT [place] ([facility]) alkaline phosphatase 101 U/L 45-117 Alkaline Phosph atase [place] ([facility]) total protein 7.3 gm/dL 6.4-8.2 Total Protein [place] ( [facility]) bilirubin,total 0.2 mg/dL 0.2-1.0 Bilirubin,total ATHE ([facility]) albumin 4.1 gm/dL 3.2-5.2 Albumin [place] ([facility]) albumin/globulin ratio Albumin/globu blake Ratio [place] ([facility]) ID Date Data Source [id number] 07/07/2020 08:24:00 AM EDT [place] ([facility]) Name Value Range Interpretation Code Description Data Juliette rce(s) Supporting Document(s) white blood count 6.9 10 4.0-10.0 White Blood Count [place] ([facility]) red blood count 5.18 10 4.30-6.10 Red Blood Count ATHE NA ([facility]) hemoglobin 14.8 g/dL 13.5-17.5 Hemoglobin [place] ([facility]) hematocrit 44.8 % 42.0-52.0 Hematocrit [place] ([facility]) mean corpuscular volume 86.5 fL 80.0-96.0 Mean Corpusc ular Volume [place] ([facility]) mean corpuscular HGB conc 33.0 g/dL 32.0-36.5 Mean Corpu scular HGB Conc [place] ([facility]) red cell distribution width 12.6 % 11.5-14.5 Red Cell Distribution Width [place] ([facility]) mean corpuscular hemoglobin 28.6 pg 27.0-33.0 Mean Cor puscular Hemoglobin [place] ([facility]) platelet count, automated 277 10 150-450 Platelet C ount, Automated [place] ([facility]) neutrophils % 59.5 % 36.0-66.0 Neutrophils % [place] ( [facility]) lymph % 27.7 % 24.0-44.0 Lymph % [place] ([facility]) mono % 7.1 % 2.0-8.0 [place] % [place] ([facility]) eos % 4.4 % 0.0-3.0 Above high normal Eos % [place] ([facility]) nucleated red blood cell % 0.0 % 0-0 Nucleated Red Blood Cell % [place] ([facility]) baso % 1.0 % 0.0-1.0 Baso % [place] ([facility]) immature granulocyte % 0.3 % 0-3.0 Immature Gran ulocyte % [place] ([facility]) mono # 0.5 10 0.0-0.8 [place] # [place] ([facility]) lymph # 1.9 10 1.5-5.0 Lymph # [place] ([facility]) neutrophils # 4.1 10 1.5-8.5 Neutrophils # [place] ( [facility]) eos # 0.3 10 0.0-0.5 Eos # [place] ([facility]) baso # 0.1 10 0.0-0.2 Baso # [place] ([facility]) ID Date Data Source [id number] 03/02/2020 08:49:00 AM EST [place] ([facility]) Name Value Range Interpretation Code Description Data Juliette rce(s) Supporting Document(s) total 25(oh) vitamin D 42.4 NG/mL 30.0-100.0 Total 25(Oh) Vitamin D [place] ([facility]) ID Date Data Source [id number] 03/02/2020 08:49:00 AM EST [place] ([facility]) Name Value Range Interpretation Code Description Data Juliette rce(s) Supporting Document(s) triglycerides level 156 mg/dL <150 Above high normal Triglycer ides Level [place] ([facility]) Cholesterol in LDL [Mass/volume] in Serum or Plasma 148 mg/dL <100 Above high normal LDL Cholesterol [place] ([facility]) HDL cholesterol 47 mg/dL >40 HDL Cholesterol ATHE NA ([facility]) cholesterol level 226 mg/dL <200 Above high normal Cholesterol Level [place] ([facility]) non-HDL-C 179 mg/dL Non-hdl-c [place] ([facility]) cholesterol risk ratio <5 Cholesterol R isk Ratio [place] ([facility]) ID Date Data Source [id number] 03/02/2020 08:49:00 AM EST [place] ([facility]) Name Value Range Interpretation Code Description Data Juliette rce(s) Supporting Document(s) creatinine for GFR 0.92 mg/dL 0.70-1.30 Creatinine for GF R [place] ([facility]) glomerular filtration rate > 60.0 >60 Glomerula r Filtration Rate [place] ([facility]) glucose, fasting 118 mg/dL 70-100 Above high normal Glucose, Fas ting [place] ([facility]) blood urea nitrogen 15 mg/dL 7-18 Blood Urea Nitro gen [place] ([facility]) chloride level 107 mEq/L 98-107 Chloride Level [place] ([facility]) sodium level 141 mEq/L 136-145 Sodium Level [place] ([facility]) carbon dioxide level 27 mEq/L 21-32 Carbon Dioxide Level [place] ([facility]) potassium serum 4.4 mEq/L 3.5-5.1 Potassium Serum ATHE NA ([facility]) ALT/SGPT 53 U/L 12-78 ALT/SGPT [place] ([facility]) AST/SGOT 18 U/L 7-37 AST/SGOT [place] ([facility]) calcium level 8.8 mg/dL 8.5-10.1 Calcium Level [place] ( [facility]) anion gap 7 mEq/L 8-16 Below low normal Anion Gap [place] ( [facility]) albumin 3.9 gm/dL 3.2-5.2 Albumin [place] ([facility]) bilirubin,total 0.3 mg/dL 0.2-1.0 Bilirubin,total ATHE ([facility]) alkaline phosphatase 105 U/L 45-117 Alkaline Phosph atase [place] ([facility]) total protein 7.5 gm/dL 6.4-8.2 Total Protein [place] ( [facility]) albumin/globulin ratio Albumin/globu blake Ratio [place] ([facility]) ID Date Data Source [id number] 03/02/2020 08:49:00 AM EST [place] ([facility]) Name Value Range Interpretation Code Description Data Juliette rce(s) Supporting Document(s) Hemoglobin A1c/Hemoglobin.total in Blood 5.8 % Hemoglobin a1C [place] ([facility]) estimated average glucose 120 mg/dL 60-110 Above high norm al Estimated Average Glucose [place] ([facility]) ID Date Data Source [id number] 03/02/2020 08:49:00 AM EST [place] ([facility]) Name Value Range Interpretation Code Description Data Juliette rce(s) Supporting Document(s) white blood count 7.9 10 4.0-10.0 White Blood Count [place] ([facility]) red blood count 5.18 10 4.30-6.10 Red Blood Count ATHE NA ([facility]) hematocrit 45.6 % 42.0-52.0 Hematocrit [place] ([facility]) hemoglobin 14.7 g/dL 13.5-17.5 Hemoglobin [place] ([facility]) mean corpuscular volume 88.0 fL 80.0-96.0 Mean Corpusc ular Volume [place] ([facility]) red cell distribution width 12.4 % 11.5-14.5 Red Cell Distribution Width [place] ([facility]) mean corpuscular hemoglobin 28.4 pg 27.0-33.0 Mean Cor puscular Hemoglobin [place] ([facility]) mean corpuscular HGB conc 32.2 g/dL 32.0-36.5 Mean Corpu scular HGB Conc [place] ([facility]) platelet count, automated 287 10 150-450 Platelet C ount, Automated [place] ([facility]) lymph % 29.3 % 24.0-44.0 Lymph % [employer] ([facility]) mono % 6.6 % 0.0-5.0 Above high normal [place] % [employer] ([facility]) neutrophils % 58.7 % 36.0-66.0 Neutrophils % [place] ( [facility]) eos % 3.9 % 0.0-3.0 Above high normal Eos % [place] ([facility]) baso % 0.9 % 0.0-1.0 Baso % [employer] ([facility]) immature granulocyte % 0.6 % 0-3.0 Immature Gran ulocyte % [place] ([facility]) neutrophils # 4.6 10 1.5-8.5 Neutrophils # [place] ( [facility]) lymph # 2.3 10 1.5-5.0 Lymph # [place] ([facility]) nucleated red blood cell % 0.0 % 0-0 Nucleated Red Blood Cell % [place] ([facility]) mono # 0.5 10 0.0-0.8 [place] # [place] ([facility]) baso # 0.1 10 0.0-0.2 Baso # [place] ([facility]) eos # 0.3 10 0.0-0.5 Eos # [place] ([facility]) ID Date Data Source [id number] 03/02/2020 08:49:00 AM EST [place] ([facility]) Name Value Range Interpretation Code Description Data Juliette rce(s) Supporting Document(s) total 25(oh) vitamin D 42.4 NG/mL 30.0-100.0 Total 25(Oh) Vitamin D [place] ([facility]) ID Date Data Source [id number] 03/02/2020 08:49:00 AM EST [place] ([facility]) Name Value Range Interpretation Code Description Data Juliette rce(s) Supporting Document(s) triglycerides level 156 mg/dL <150 Above high normal Triglycer ides Level [place] ([facility]) cholesterol level 226 mg/dL <200 Above high normal Cholesterol Level [place] ([facility]) Cholesterol in LDL [Mass/volume] in Serum or Plasma 148 mg/dL <100 Above high normal LDL Cholesterol [place] ([facility]) HDL cholesterol 47 mg/dL >40 HDL Cholesterol ATHE NA ([facility]) non-HDL-C 179 mg/dL Non-hdl-c [place] ([facility]) cholesterol risk ratio <5 Cholesterol R isk Ratio [place] ([facility]) ID Date Data Source [id number] 03/02/2020 08:49:00 AM EST [place] ([facility]) Name Value Range Interpretation Code Description Data Juliette rce(s) Supporting Document(s) glucose, fasting 118 mg/dL 70-100 Above high normal Glucose, Fas ting [place] ([facility]) blood urea nitrogen 15 mg/dL 7-18 Blood Urea Nitro gen [place] ([facility]) glomerular filtration rate > 60.0 >60 Glomerula r Filtration Rate [place] ([facility]) creatinine for GFR 0.92 mg/dL 0.70-1.30 Creatinine for GF R [place] ([facility]) sodium level 141 mEq/L 136-145 Sodium Level [place] (No [facility]) carbon dioxide level 27 mEq/L 21-32 Carbon Dioxide Level [place] ([facility]) chloride level 107 mEq/L 98-107 Chloride Level [place] ([facility]) potassium serum 4.4 mEq/L 3.5-5.1 Potassium Serum ATHE NA ([facility]) anion gap 7 mEq/L 8-16 Below low normal Anion Gap [place] ( [facility]) AST/SGOT 18 U/L 7-37 AST/SGOT [place] ([facility]) ALT/SGPT 53 U/L 12-78 ALT/SGPT [place] ([facility]) calcium level 8.8 mg/dL 8.5-10.1 Calcium Level [place] ( [facility]) total protein 7.5 gm/dL 6.4-8.2 Total Protein [place] ( [facility]) alkaline phosphatase 105 U/L 45-117 Alkaline Phosph atase [place] ([facility]) albumin 3.9 gm/dL 3.2-5.2 Albumin [place] ([facility]) bilirubin,total 0.3 mg/dL 0.2-1.0 Bilirubin,total ATHE ([facility]) albumin/globulin ratio Albumin/globu blake Ratio [place] ([facility]) ID Date Data Source [id number] 03/02/2020 08:49:00 AM EST [place] ([facility]) Name Value Range Interpretation Code Description Data Juliette rce(s) Supporting Document(s) Hemoglobin A1c/Hemoglobin.total in Blood 5.8 % Hemoglobin a1C [place] ([facility]) estimated average glucose 120 mg/dL 60-110 Above high norm al Estimated Average Glucose [place] ([facility]) ID Date Data Source [id number] 03/02/2020 08:49:00 AM EST [place] ([facility]) Name Value Range Interpretation Code Description Data Juliette rce(s) Supporting Document(s) white blood count 7.9 10 4.0-10.0 White Blood Count [place] ([facility]) red blood count 5.18 10 4.30-6.10 Red Blood Count ATHE NA ([facility]) mean corpuscular volume 88.0 fL 80.0-96.0 Mean Corpusc ular Volume [place] ([facility]) hematocrit 45.6 % 42.0-52.0 Hematocrit [place] ([facility]) hemoglobin 14.7 g/dL 13.5-17.5 Hemoglobin [place] ([facility]) mean corpuscular hemoglobin 28.4 pg 27.0-33.0 Mean Cor puscular Hemoglobin [place] ([facility]) red cell distribution width 12.4 % 11.5-14.5 Red Cell Distribution Width [place] ([facility]) mean corpuscular HGB conc 32.2 g/dL 32.0-36.5 Mean Corpu scular HGB Conc [place] ([facility]) lymph % 29.3 % 24.0-44.0 Lymph % [place] ([facility]) platelet count, automated 287 10 150-450 Platelet C ount, Automated [place] ([facility]) mono % 6.6 % 0.0-5.0 Above high normal [place] % [place] ([facility]) neutrophils % 58.7 % 36.0-66.0 Neutrophils % [place] ( [facility]) baso % 0.9 % 0.0-1.0 Baso % [place] ([facility]) immature granulocyte % 0.6 % 0-3.0 Immature Gran ulocyte % [place] ([facility]) eos % 3.9 % 0.0-3.0 Above high normal Eos % [place] ([facility]) nucleated red blood cell % 0.0 % 0-0 Nucleated Red Blood Cell % [place] ([facility]) lymph # 2.3 10 1.5-5.0 Lymph # [place] ([facility]) mono # 0.5 10 0.0-0.8 [place] # [place] ([facility]) neutrophils # 4.6 10 1.5-8.5 Neutrophils # [place] ( [facility]) baso # 0.1 10 0.0-0.2 Baso # [place] ([facility]) eos # 0.3 10 0.0-0.5 Eos # [place] ([facility]) ID Date Data Source [id number] 03/02/2020 08:49:00 AM EST [place] ([facility]) Name Value Range Interpretation Code Description Data Juliette rce(s) Supporting Document(s) total 25(oh) vitamin D 42.4 NG/mL 30.0-100.0 Total 25(Oh) Vitamin D [place] ([facility]) ID Date Data Source [id number] 03/02/2020 08:49:00 AM EST [place] ([facility]) Name Value Range Interpretation Code Description Data Juliette rce(s) Supporting Document(s) triglycerides level 156 mg/dL <150 Above high normal Triglycer ides Level [place] ([facility]) cholesterol level 226 mg/dL <200 Above high normal Cholesterol Level [place] ([facility]) HDL cholesterol 47 mg/dL >40 HDL Cholesterol ATHE NA ([facility]) Cholesterol in LDL [Mass/volume] in Serum or Plasma 148 mg/dL <100 Above high normal LDL Cholesterol [place] ([facility]) cholesterol risk ratio <5 Cholesterol R isk Ratio [place] ([facility]) non-HDL-C 179 mg/dL Non-hdl-c [place] ([facility]) ID Date Data Source [id number] 03/02/2020 08:49:00 AM EST [place] ([facility]) Name Value Range Interpretation Code Description Data Juliette rce(s) Supporting Document(s) glucose, fasting 118 mg/dL 70-100 Above high normal Glucose, Fas ting [place] ([facility]) blood urea nitrogen 15 mg/dL 7-18 Blood Urea Nitro gen [place] ([facility]) creatinine for GFR 0.92 mg/dL 0.70-1.30 Creatinine for GF R [place] ([facility]) sodium level 141 mEq/L 136-145 Sodium Level [place] ([facility]) glomerular filtration rate > 60.0 >60 Glomerula r Filtration Rate [place] ([facility]) potassium serum 4.4 mEq/L 3.5-5.1 Potassium Serum ATHE NA ([facility]) chloride level 107 mEq/L 98-107 Chloride Level [place] ([facility]) carbon dioxide level 27 mEq/L 21-32 Carbon Dioxide Level [place] ([facility]) calcium level 8.8 mg/dL 8.5-10.1 Calcium Level [place] ( [facility]) anion gap 7 mEq/L 8-16 Below low normal Anion Gap [place] ( [facility]) AST/SGOT 18 U/L 7-37 AST/SGOT [place] ([facility]) ALT/SGPT 53 U/L 12-78 ALT/SGPT [place] ([facility]) alkaline phosphatase 105 U/L 45-117 Alkaline Phosph atase [place] ([facility]) bilirubin,total 0.3 mg/dL 0.2-1.0 Bilirubin,total ATHE ([facility]) albumin 3.9 gm/dL 3.2-5.2 Albumin [place] ([facility]) total protein 7.5 gm/dL 6.4-8.2 Total Protein [place] ( [facility]) albumin/globulin ratio Albumin/globu blake Ratio [place] ([facility]) ID Date Data Source [id number] 03/02/2020 08:49:00 AM EST [place] ([facility]) Name Value Range Interpretation Code Description Data Juliette rce(s) Supporting Document(s) estimated average glucose 120 mg/dL 60-110 Above high norm al Estimated Average Glucose [place] ([facility]) Hemoglobin A1c/Hemoglobin.total in Blood 5.8 % Hemoglobin a1C [place] ([facility]) ID Date Data Source [id number] 03/02/2020 08:49:00 AM EST [place] ([facility]) Name Value Range Interpretation Code Description Data Juliette rce(s) Supporting Document(s) white blood count 7.9 10 4.0-10.0 White Blood Count [place] ([facility]) red blood count 5.18 10 4.30-6.10 Red Blood Count ATHE NA ([facility]) hematocrit 45.6 % 42.0-52.0 Hematocrit [place] ([facility]) hemoglobin 14.7 g/dL 13.5-17.5 Hemoglobin [place] ([facility]) mean corpuscular volume 88.0 fL 80.0-96.0 Mean Corpusc ular Volume [place] ([facility]) mean corpuscular HGB conc 32.2 g/dL 32.0-36.5 Mean Corpu scular HGB Conc [place] ([facility]) mean corpuscular hemoglobin 28.4 pg 27.0-33.0 Mean Cor puscular Hemoglobin [place] ([facility]) red cell distribution width 12.4 % 11.5-14.5 Red Cell Distribution Width [place] ([facility]) platelet count, automated 287 10 150-450 Platelet C ount, Automated [place] ([facility]) neutrophils % 58.7 % 36.0-66.0 Neutrophils % [place] ( [facility]) lymph % 29.3 % 24.0-44.0 Lymph % [place] ([facility]) mono % 6.6 % 0.0-5.0 Above high normal [place] % [place] ([facility]) eos % 3.9 % 0.0-3.0 Above high normal Eos % [place] ([facility]) immature granulocyte % 0.6 % 0-3.0 Immature Gran ulocyte % [place] ([facility]) baso % 0.9 % 0.0-1.0 Baso % [place] ([facility]) nucleated red blood cell % 0.0 % 0-0 Nucleated Red Blood Cell % [place] ([facility]) lymph # 2.3 10 1.5-5.0 Lymph # [place] ([facility]) neutrophils # 4.6 10 1.5-8.5 Neutrophils # [place] ( [facility]) mono # 0.5 10 0.0-0.8 [place] # [place] ([facility]) eos # 0.3 10 0.0-0.5 Eos # [place] ([facility]) baso # 0.1 10 0.0-0.2 Baso # [place] ([facility]) ID Date Data Source [id number] 03/02/2020 08:49:00 AM EST [place] ([facility]) Name Value Range Interpretation Code Description Data Juliette rce(s) Supporting Document(s) total 25(oh) vitamin D 42.4 NG/mL 30.0-100.0 Total 25(Oh) Vitamin D [place] ([facility]) ID Date Data Source [id number] 03/02/2020 08:49:00 AM EST [place] ([facility]) Name Value Range Interpretation Code Description Data Juliette rce(s) Supporting Document(s) cholesterol level 226 mg/dL <200 Above high normal Cholesterol Level [place] ([facility]) triglycerides level 156 mg/dL <150 Above high normal Triglycer ides Level [place] ([facility]) Cholesterol in LDL [Mass/volume] in Serum or Plasma 148 mg/dL <100 Above high normal LDL Cholesterol [place] ([facility]) HDL cholesterol 47 mg/dL >40 HDL Cholesterol ATHE NA ([facility]) non-HDL-C 179 mg/dL Non-hdl-c [place] ([facility]) cholesterol risk ratio <5 Cholesterol R isk Ratio [place] ([facility]) ID Date Data Source [id number] 03/02/2020 08:49:00 AM EST [place] ([facility]) Name Value Range Interpretation Code Description Data Juliette rce(s) Supporting Document(s) glucose, fasting 118 mg/dL 70-100 Above high normal Glucose, Fas ting [place] ([facility]) creatinine for GFR 0.92 mg/dL 0.70-1.30 Creatinine for GF R [place] ([facility]) blood urea nitrogen 15 mg/dL 7-18 Blood Urea Nitro gen [place] ([facility]) sodium level 141 mEq/L 136-145 Sodium Level [place] (No [facility]) glomerular filtration rate > 60.0 >60 Glomerula r Filtration Rate [place] ([facility]) chloride level 107 mEq/L 98-107 Chloride Level [employer] ([facility]) carbon dioxide level 27 mEq/L 21-32 Carbon Dioxide Level [place] ([facility]) potassium serum 4.4 mEq/L 3.5-5.1 Potassium Serum [place] ([facility]) ALT/SGPT 53 U/L 12-78 ALT/SGPT [place] ([facility]) anion gap 7 mEq/L 8-16 Below low normal Anion Gap [place] ( [facility]) calcium level 8.8 mg/dL 8.5-10.1 Calcium Level [place] ( [facility]) AST/SGOT 18 U/L 7-37 AST/SGOT [place] ([facility]) alkaline phosphatase 105 U/L 45-117 Alkaline Phosph atase [place] ([facility]) albumin/globulin ratio Albumin/globu blake Ratio [place] ([facility]) bilirubin,total 0.3 mg/dL 0.2-1.0 Bilirubin,total [place] ([facility]) albumin 3.9 gm/dL 3.2-5.2 Albumin [place] ([facility]) total protein 7.5 gm/dL 6.4-8.2 Total Protein [place] ( [facility]) ID Date Data Source [id number] 03/02/2020 08:49:00 AM EST [place] ([facility]) Name Value Range Interpretation Code Description Data Juliette rce(s) Supporting Document(s) estimated average glucose 120 mg/dL 60-110 Above high norm al Estimated Average Glucose [place] ([facility]) Hemoglobin A1c/Hemoglobin.total in Blood 5.8 % Hemoglobin a1C [place] ([facility]) ID Date Data Source [id number] 03/02/2020 08:49:00 AM EST [employer] ([facility]) Name Value Range Interpretation Code Description Data Juliette rce(s) Supporting Document(s) white blood count 7.9 10 4.0-10.0 White Blood Count [place] ([facility]) mean corpuscular volume 88.0 fL 80.0-96.0 Mean Corpusc ular Volume [place] ([facility]) red blood count 5.18 10 4.30-6.10 Red Blood Count [place] ([facility]) hematocrit 45.6 % 42.0-52.0 Hematocrit [place] ([facility]) hemoglobin 14.7 g/dL 13.5-17.5 Hemoglobin [place] ([facility]) mean corpuscular HGB conc 32.2 g/dL 32.0-36.5 Mean Corpu scular HGB Conc [place] ([facility]) platelet count, automated 287 10 150-450 Platelet C ount, Automated [place] ([facility]) red cell distribution width 12.4 % 11.5-14.5 Red Cell Distribution Width [employer] ([facility]) mean corpuscular hemoglobin 28.4 pg 27.0-33.0 Mean Cor puscular Hemoglobin [place] ([facility]) neutrophils % 58.7 % 36.0-66.0 Neutrophils % [place] ( [facility]) lymph % 29.3 % 24.0-44.0 Lymph % [place] ([facility]) mono % 6.6 % 0.0-5.0 Above high normal [place] % [place] ([facility]) immature granulocyte % 0.6 % 0-3.0 Immature Gran ulocyte % [place] ([facility]) baso % 0.9 % 0.0-1.0 Baso % [place] ([facility]) eos % 3.9 % 0.0-3.0 Above high normal Eos % [place] ([facility]) nucleated red blood cell % 0.0 % 0-0 Nucleated Red Blood Cell % [place] ([facility]) eos # 0.3 10 0.0-0.5 Eos # [place] ([facility]) lymph # 2.3 10 1.5-5.0 Lymph # [place] ([facility]) neutrophils # 4.6 10 1.5-8.5 Neutrophils # [place] ( [facility]) mono # 0.5 10 0.0-0.8 [place] # [place] ([facility]) baso # 0.1 10 0.0-0.2 Baso # [place] ([facility]) ID Date Data Source [id number] 03/02/2020 08:49:00 AM EST [place] ([facility]) Name Value Range Interpretation Code Description Data Juliette rce(s) Supporting Document(s) total 25(oh) vitamin D 42.4 NG/mL 30.0-100.0 Total 25(Oh) Vitamin D [place] ([facility]) ID Date Data Source [id number] 03/02/2020 08:49:00 AM EST [place] ([facility]) Name Value Range Interpretation Code Description Data Juliette rce(s) Supporting Document(s) triglycerides level 156 mg/dL <150 Above high normal Triglycer ides Level [place] ([facility]) non-HDL-C 179 mg/dL Non-hdl-c [place] ([facility]) Cholesterol in LDL [Mass/volume] in Serum or Plasma 148 mg/dL <100 Above high normal LDL Cholesterol [place] ([facility]) HDL cholesterol 47 mg/dL >40 HDL Cholesterol ATHE NA ([facility]) cholesterol level 226 mg/dL <200 Above high normal Cholesterol Level [place] ([facility]) cholesterol risk ratio <5 Cholesterol R isk Ratio [place] ([facility]) ID Date Data Source [id number] 03/02/2020 08:49:00 AM EST [place] ([facility]) Name Value Range Interpretation Code Description Data Juliette rce(s) Supporting Document(s) glucose, fasting 118 mg/dL 70-100 Above high normal Glucose, Fas ting [place] ([facility]) blood urea nitrogen 15 mg/dL 7-18 Blood Urea Nitro gen [place] ([facility]) sodium level 141 mEq/L 136-145 Sodium Level [place] (No [facility]) glomerular filtration rate > 60.0 >60 Glomerula r Filtration Rate [place] ([facility]) creatinine for GFR 0.92 mg/dL 0.70-1.30 Creatinine for GF R [place] ([facility]) potassium serum 4.4 mEq/L 3.5-5.1 Potassium Serum [place] ([facility]) anion gap 7 mEq/L 8-16 Below low normal Anion Gap [place] ( [facility]) calcium level 8.8 mg/dL 8.5-10.1 Calcium Level [place] ( [facility]) chloride level 107 mEq/L 98-107 Chloride Level [place] ([facility]) carbon dioxide level 27 mEq/L 21-32 Carbon Dioxide Level [place] ([facility]) AST/SGOT 18 U/L 7-37 AST/SGOT [place] ([facility]) ALT/SGPT 53 U/L 12-78 ALT/SGPT [place] ([facility]) bilirubin,total 0.3 mg/dL 0.2-1.0 Bilirubin,total ATHE NA ([facility]) alkaline phosphatase 105 U/L 45-117 Alkaline Phosph atase [place] ([facility]) albumin 3.9 gm/dL 3.2-5.2 Albumin [place] ([facility]) total protein 7.5 gm/dL 6.4-8.2 Total Protein [place] ( [facility]) albumin/globulin ratio Albumin/globu blake Ratio [place] ([facility]) ID Date Data Source [id number] 03/02/2020 08:49:00 AM EST [place] ([facility]) Name Value Range Interpretation Code Description Data Juliette rce(s) Supporting Document(s) estimated average glucose 120 mg/dL 60-110 Above high norm al Estimated Average Glucose [place] ([facility]) Hemoglobin A1c/Hemoglobin.total in Blood 5.8 % Hemoglobin a1C [employer] ([facility]) ID Date Data Source [id number] 03/02/2020 08:49:00 AM EST [place] ([facility]) Name Value Range Interpretation Code Description Data Juliette rce(s) Supporting Document(s) white blood count 7.9 10 4.0-10.0 White Blood Count [place] ([facility]) hemoglobin 14.7 g/dL 13.5-17.5 Hemoglobin [place] ([facility]) red blood count 5.18 10 4.30-6.10 Red Blood Count [place] ([facility]) hematocrit 45.6 % 42.0-52.0 Hematocrit [place] ([facility]) mean corpuscular volume 88.0 fL 80.0-96.0 Mean Corpusc ular Volume [place] ([facility]) mean corpuscular HGB conc 32.2 g/dL 32.0-36.5 Mean Corpu scular HGB Conc [place] ([facility]) mean corpuscular hemoglobin 28.4 pg 27.0-33.0 Mean Cor puscular Hemoglobin [place] ([facility]) red cell distribution width 12.4 % 11.5-14.5 Red Cell Distribution Width [place] ([facility]) lymph % 29.3 % 24.0-44.0 Lymph % [place] ([facility]) platelet count, automated 287 10 150-450 Platelet C ount, Automated [place] ([facility]) neutrophils % 58.7 % 36.0-66.0 Neutrophils % [place] ( [facility]) eos % 3.9 % 0.0-3.0 Above high normal Eos % [place] ([facility]) mono % 6.6 % 0.0-5.0 Above high normal [place] % [place] ([facility]) baso % 0.9 % 0.0-1.0 Baso % [place] ([facility]) immature granulocyte % 0.6 % 0-3.0 Immature Gran ulocyte % [employer] ([facility]) neutrophils # 4.6 10 1.5-8.5 Neutrophils # [employer] ( [facility]) nucleated red blood cell % 0.0 % 0-0 Nucleated Red Blood Cell % [employer] ([facility]) lymph # 2.3 10 1.5-5.0 Lymph # [employer] ([facility]) eos # 0.3 10 0.0-0.5 Eos # [employer] ([facility]) baso # 0.1 10 0.0-0.2 Baso # [employer] ([facility]) mono # 0.5 10 0.0-0.8 [place] # [employer] ([facility]) ID Date Data Source [id number] 12/10/2019 08:22:13 AM EDT [facility] Measurements & CalculationsHeight: 70 inches (5 ft. [...] during this visit, including review of any [id number] medications, herbal therapies, and/or supplements.Allergy ReviewAllergy List [...] explanation of examination or test findings (ICD-V65.8) (AXU82-K90.2) Assessment: Instructions: We have reviewed your lab results with you today. Please continue lifestyle changes to include healthy diet and physical activities. Please try to limit sugars, sodium, carbohydrates and fats in your diet. aPlease try to maintain adequate intake of water daily.vitamin D deficiency (ICD-268.9) (OML89-B89.9) Assessment: Instructions: Vitamin D medication sent to pharmacy for you today.Unspecified injury of abdomen, initial encounter (ICD- 959.12) ([id number]) Assessment: Instructions: We have ordered an ultrasound for you. We will contact you to set this up.Person consulting for explanation of examination or test findings (ICD-V65.8) (NDS52-V59.2) Assessment: lab result + vitamin D Deficiency, prediabetes, elevated cholesterol. Lifestyle changes discussed and encouraged.Prediabetes (ICD10- R73.03) Assessment: Instructions: HGA1c is 5.7. This indicates Prediabetes. Please continue lifestyle changes to include healthy diet and physical activities. Please try to limit sugars, sodium, carbohydrates and fats in your diet. Please try to maintain adequate intake of water daily.Hyperlipidemia, unspecified (HWS08-A02.5) Assessment: Instructions: Please continue lifestyle changes to include healthy diet and physical activities. Please try to limit sugars, sodium, carbohydrates and fats in your diet. Please try to avoid processed foods. Please try to maintain adequate intake of waterUpper abdominal pain, unspecified (XHU90-Q60.10) Assessment: Instructions: Ultrasound ordered. May take tylenol as needed for pain. Please try to avoid heavy lifting.Assessed:Anxiety depression (ICD-300.09) (HJX86-S68.8) Assessment: Instructions: We have sent a prescription [...] in collaboration with patient and/or familyMedications:VITAMIN D3 47808 UNIT ORAL TABLETSERTRALINE HCL 50 MG ORAL TABLETMedication Changes:New Prescription:SERTRALINE HCL 50 MG ORAL TABLET-take one tablet by mouth daily Qty: 30[Tablet] Refills: 1 Method: ElectronicV ITAMIN D3 80151 UNIT ORAL TABLET-1 po q wk for 12 wks, then change to 1000 unit tablet daily thereafter Qty: 12[Tablet] Refills: 0 Method: ElectronicAllergies:No Known Allergies (updated 10/16/2019) Orders:Ultrasound, abdominal, limited [CPT-46553] COMP METABOLIC PANEL [CPT-32441] CBC W/DIFF [CPT- 21335] HgBA1c [CPT-54669] LIPID PANEL [CPT-23325] Vitamin D 250H Unspecified [CPT-94400] Adult - Ofc Vst, EST, Level IV [CPT-39557] Follow-Up Return to clinic: 6-8 weeks for follow up Additional Follow-Up: 6-8 weeks, follow up on anxiety. 3 months, routine follow up [facility]IT[facility] D3 39987 UNIT ORAL TABLET (CHOLECALCIFEROL) 1 po q wk for 12 wks, then change to 1000 unit tablet daily thereafter #12[Tablet] x 0 Route:ORAL Entered and Authorized by: Zara HALE Method used: Electronically to [facility] (retail) [id number] [place] [address] Note to Pharmacy: Route: ORAL; Indications: VITAMIN D DEFICIENCY RxID: [id number] 50 MG ORAL TABLET (SERTRALINE HCL) take one tablet by mouth daily #30[Tablet] x 1 Route:ORAL Entered and Authorized by: Zara HALE Method used: Electronically to [facility] (retail) [id number] [place] [address] Note to Pharmacy: Route: ORAL; Indications: PANIC DISORDER RxID: [id number] signed by Zara HALE on 12/10/2019 at 10:30 PM Name Value Range Interpretation Code Description Data Juliette rce(s) Supporting Document(s) Procedure Social History No Information Vital Signs ID Date Data Source UNK Name Value Range Interpretation Code Description Data Source(s) Diastolic blood pressure 80 mm[Hg] 80 mm[Hg] [facility] ([facility]) Body height 71 [in_i] 71 [in_i] [facility] ([facility]) Body mass index (BMI) [Ratio] 36.9 kg/m2 36.9 k g/m2 [place] ([facility]) Systolic blood pressure 123 mm[Hg] 123 mm[Hg] A THENA ([facility]) Body weight 4230.4 [oz_av] 4230.4 [oz_av] ATHEN A ([facility]) Systolic blood pressure 124 mm[Hg] 124 mm[Hg] M EDENT ([facility], [facility]) Diastolic blood pressure 78 mm[Hg] 78 mm[Hg] MEDENT ([facility], [facility]) Heart rate 70 /min 70 /min MEDENT ([facility], [facility]) Respiratory rate 16 /min 16 /min MEDENT ( [facility], [facility]) Oxygen saturation in Arterial blood by Pulse oximetry 97 % 97 % MEDENT ([facility], [facility]) Body temperature 97.7 [degF] 97.7 [degF] MEDENT ([facility], [facility]) Body weight 250.00 [lb_av] 250.00 [lb_av] MEDEN T ([facility], [facility]) Body height 71 [in_i] 71 [in_i] MEDENT ([facility], [facility]) 5'11" Body mass index (BMI) [Ratio] 34.9 kg/m2 34.9 k g/m2 MEDENT ([facility], [facility]) Diastolic blood pressure 79 mm[Hg] 79 mm[Hg] [facility]O ([facility]) Body height 71 [in_i] 71 [in_i] [place] ([facility]) Body mass index (BMI) [Ratio] 37.7 kg/m2 37.7 k g/m2 [place] ([facility]) Systolic blood pressure 128 mm[Hg] 128 mm[Hg] A THENA ([facility]) Body weight 4328 [oz_av] 4328 [oz_av] [place] ([facility]) Diastolic blood pressure 79 mm[Hg] 79 mm[Hg] [place] ([facility]) Body height 71 [in_i] 71 [in_i] [place] ([facility]) Body mass index (BMI) [Ratio] 37.7 kg/m2 37.7 k g/m2 [place] ([facility]) Systolic blood pressure 128 mm[Hg] 128 mm[Hg] [facility] Body weight 4328 [oz_av] 4328 [oz_av] [place] ([facility]) Body height 71 [in_i] 71 [in_i] [facility] ([facility]) Body height 71 [in_i] 71 [in_i] [place] ([facility]) Body height 71 [in_i] 71 [in_i] [place] ([facility]) Diastolic blood pressure 83 mm[Hg] 83 mm[Hg] [place] ([facility]) Body height 71 [in_i] 71 [in_i] [place] ([facility]) Body mass index (BMI) [Ratio] 42.9 kg/m2 42.9 k g/m2 [place] ([facility]) Systolic blood pressure 129 mm[Hg] 129 mm[Hg] A THENA ([facility]) Body weight 4920 [oz_av] 4920 [oz_av] [place] ([facility]) Diastolic blood pressure 83 mm[Hg] 83 mm[Hg] [facility] ([facility]) Body height 71 [in_i] 71 [in_i] [facility] ([facility]) Body mass index (BMI) [Ratio] 42.9 kg/m2 42.9 k g/m2 [place] ([facility]) Systolic blood pressure 129 mm[Hg] 129 mm[Hg] A THENA ([facility]) Body weight 4920 [oz_av] 4920 [oz_av] [place] ([facility]) Diastolic blood pressure 83 mm[Hg] 83 mm[Hg] [facility] ([facility]) Body height 71 [in_i] 71 [in_i] [facility] ([facility]) Body mass index (BMI) [Ratio] 42.9 kg/m2 42.9 k g/m2 [place] ([facility]) Systolic blood pressure 129 mm[Hg] 129 mm[Hg] A THENA ([facility]) Body weight 4920 [oz_av] 4920 [oz_av] [place] ([facility]) Diastolic blood pressure 83 mm[Hg] 83 mm[Hg] [facility] ([facility]) Body height 71 [in_i] 71 [in_i] [place] ([facility]) Body mass index (BMI) [Ratio] 42.9 kg/m2 42.9 k g/m2 [place] ([facility]) Systolic blood pressure 129 mm[Hg] 129 mm[Hg] A THENA ([facility]) Body weight 4920 [oz_av] 4920 [oz_av] [place] ([facility]) Diastolic blood pressure 83 mm[Hg] 83 mm[Hg] [place] ([facility]) Body height 71 [in_i] 71 [in_i] [place] ([facility]) Body mass index (BMI) [Ratio] 42.5 kg/m2 42.5 k g/m2 [place] ([facility]) Systolic blood pressure 126 mm[Hg] 126 mm[Hg] A THENA ([facility]) Body weight 4880 [oz_av] 4880 [oz_av] [place] ([facility]) Diastolic blood pressure 83 mm[Hg] 83 mm[Hg] [place] ([facility]) Body height 71 [in_i] 71 [in_i] [place] ([facility]) Body mass index (BMI) [Ratio] 42.5 kg/m2 42.5 k g/m2 [place] ([facility]) Systolic blood pressure 126 mm[Hg] 126 mm[Hg] A THENA ([facility]) Body weight 4880 [oz_av] 4880 [oz_av] [place] ([facility]) Diastolic blood pressure 83 mm[Hg] 83 mm[Hg] [place] ([facility]) Body height 71 [in_i] 71 [in_i] [place] ([facility]) Body mass index (BMI) [Ratio] 42.5 kg/m2 42.5 k g/m2 [place] ([facility]) Systolic blood pressure 126 mm[Hg] 126 mm[Hg] A THENA ([facility]) Body weight 4880 [oz_av] 4880 [oz_av] [place] ([facility]) Diastolic blood pressure 83 mm[Hg] 83 mm[Hg] [place] ([facility]) Body height 71 [in_i] 71 [in_i] [place] ([facility]) Body mass index (BMI) [Ratio] 42.5 kg/m2 42.5 k g/m2 [place] ([facility]) Systolic blood pressure 126 mm[Hg] 126 mm[Hg] A THENA ([facility]) Body weight 4880 [oz_av] 4880 [oz_av] [place] ([facility]) Diastolic blood pressure 83 mm[Hg] 83 mm[Hg] [place] ([facility]) Body height 71 [in_i] 71 [in_i] [place] ([facility]) Body mass index (BMI) [Ratio] 42.5 kg/m2 42.5 k g/m2 [place] ([facility]) Systolic blood pressure 126 mm[Hg] 126 mm[Hg] A THENA ([facility]) Body weight 4880 [oz_av] 4880 [oz_av] [place] ([facility]) Diastolic blood pressure 83 mm[Hg] 83 mm[Hg] [facility] ([facility]) Body height 71 [in_i] 71 [in_i] [place] ([facility]) Body mass index (BMI) [Ratio] 42.5 kg/m2 42.5 k g/m2 [place] ([facility]) Systolic blood pressure 126 mm[Hg] 126 mm[Hg] A THENA ([facility]) Body weight 4880 [oz_av] 4880 [oz_av] [place] ([facility]) Diastolic blood pressure 87 mm[Hg] 87 mm[Hg] [place] ([facility]) Body height 70 [in_i] 70 [in_i] [place] ([facility]) Body mass index (BMI) [Ratio] 43.69 kg/m2 43.69 kg/m2 [place] ([facility]) Systolic blood pressure 134 mm[Hg] 134 mm[Hg] A THENA ([facility]) Body weight 4854.08 [oz_av] 4854.08 [oz_av] ATH SHIRA ([facility]) Diastolic blood pressure 87 mm[Hg] 87 mm[Hg] [place] ([facility]) Body height 70 [in_i] 70 [in_i] [place] ([facility]) Body mass index (BMI) [Ratio] 43.69 kg/m2 43.69 kg/m2 [place] ([facility]) Systolic blood pressure 134 mm[Hg] 134 mm[Hg] A THENA ([facility]) Body weight 4854.08 [oz_av] 4854.08 [oz_av] ATH SHIRA ([facility]) Diastolic blood pressure 87 mm[Hg] 87 mm[Hg] [place] ([facility]) Body height 70 [in_i] 70 [in_i] [place] ([facility]) Body mass index (BMI) [Ratio] 43.69 kg/m2 43.69 kg/m2 [place] ([facility]) Systolic blood pressure 134 mm[Hg] 134 mm[Hg] A THENA ([facility]) Body weight 4854.08 [oz_av] 4854.08 [oz_av] ATH SHIRA ([facility]) Patient Treatment Plan of Care Planned Activity Planned Date Details Description Data Source (s) vitamin d3 25 mcg (1000 ut) tabs [facility] ([facility]) Sertraline 50 MG Oral Tablet [facility] ([facility]) Penicillin V Potassium 500 MG Oral Tablet [place] ([facility]) Ibuprofen 600 MG Oral Tablet [place] ([facility]) Cholecalciferol 00605 UNT Oral Capsule [place] ([facility]) Sertraline 50 MG Oral Tablet [place] ([facility]) Penicillin V Potassium 500 MG Oral Tablet [facility] ([facility]) Ibuprofen 600 MG Oral Tablet [facility] ([facility]) Sertraline 50 MG Oral Tablet TEOD[place] ([facility]) Penicillin V Potassium 500 MG Oral Tablet [facility] ([facility]) Ibuprofen 600 MG Oral Tablet [place] ([facility]) Sertraline 50 MG Oral Tablet [facility] ([facility]) Penicillin V Potassium 500 MG Oral Tablet [place] ([facility]) Ibuprofen 600 MG Oral Tablet [place] ([facility]) Penicillin V Potassium 500 MG Oral Tablet [place] ([facility]) Ibuprofen 600 MG Oral Tablet [place] ([facility]) Penicillin V Potassium 500 MG Oral Tablet [place] ([facility]) Ibuprofen 600 MG Oral Tablet [place] ([facility])
[2021-01-13 12:21] VITALS: BP 133/86
== END 2021-01-13 12:22 | disposition home or self-care (01) ==
LOC: M ED 09:25
DX: S66.511A Strain of intrinsic muscle, fascia and tendon of left index finger at wrist and hand level, initial encounter (principal); X58.XXXA Exposure to other specified factors, initial encounter; Y92.099 Unspecified place in other non-institutional residence as the place of occurrence of the external cause; Y93.9 Activity, unspecified; Y99.9 Unspecified external cause status; Z79.899 Other long term (current) drug therapy

== ENCOUNTER → 2022-04-13 | Outpatient (CLI) | payer OTHER ==
[~2022-04-13] MED LIST changes: -D31000TA2; +VITA100093
== END ==
LOC: M RAD 10:36
PROVIDERS: ATTEND Nurse Practitioner Family
DX: K45.8 Other specified abdominal hernia without obstruction or gangrene (principal)

== ENCOUNTER 2022-08-22 16:16 | Emergency (ER) | payer OTHER ==
[~2022-08-22] VITALS: Ht 180.3 cm; Wt 127.9 kg
[2022-08-22 17:00] LABS: BASO % 0.3 % (0.0-1.0); EOS % 0.1 % (0.0-3.0); HEMATOCRIT 42.4 % (42.0-52.0); HEMOGLOBIN 14.6 g/dl (13.5-17.5); LYMPH % 8.4 % (24.0-44.0); MEAN CORPUSCULAR HEMOGLOBIN 29.4 pg (27.0-33.0); MEAN CORPUSCULAR HGB CONC 34.4 g/dl (32.0-36.5); MEAN CORPUSCULAR VOLUME 85.3 fl (80.0-96.0); MONO # 0.8 10^3/uL (0.0-0.8); MONO % 6.9 % (2.0-8.0); NEUTROPHILS # 10.2 10^3/uL (1.5-8.5); NEUTROPHILS % 83.9 % (36.0-66.0); PLATELET COUNT, AUTOMATED 219 10^3/uL (150-450); RED BLOOD COUNT 4.97 10^6/uL (4.30-6.10); WHITE BLOOD COUNT 12.2 10^3/uL (4.0-10.0)
[2022-08-22] MEDS ORDERED: ACETAMINOPHEN 500 MG TAB PO ONE (17:00)
[2022-08-22 17:27] LABS: BLOOD UREA NITROGEN 11 MG/DL (9-23); CALCIUM LEVEL 8.5 MG/DL (8.5-10.1); CARBON DIOXIDE LEVEL 24 MMOL/L (20-31); CHLORIDE LEVEL 103 MMOL/L (98-107); CREATININE FOR GFR 0.98 MG/DL (0.70-1.30); GLOMERULAR FILTRATION RATE > 60.0 (>60); GLUCOSE, FASTING 106 MG/DL (60-100); POTASSIUM SERUM 4.3 MMOL/L (3.5-5.1); SODIUM LEVEL 136 MMOL/L (136-145)
[2022-08-22 17:40] LABS: RSV AMPLIFICATION NEGATIVE (NEGATIVE)
[2022-08-22] MEDS ORDERED: NS 1,000 ML IV ONE (17:50)
[2022-08-22] MEDS ORDERED: KETOROLAC 30 MG/ML 1ML VIAL IV ONE (17:50)
[2022-08-22] MEDS ORDERED: ISOVUE-370 76% 100ML VIAL As Ordered ONE (17:55)
[2022-08-22] MEDS ORDERED: AMOXICILLIN 500 MG CAP PO ONE (18:25)
[2022-08-22 19:40] VITALS: BP 143/88
[2022-08-22] MEDS ORDERED: IBUP-1022 PO (20:11)
[2022-08-22] MEDS ORDERED: AMOX500C PO (20:11)
== END 2022-08-22 20:26 | disposition home or self-care (01) ==
LOC: M ED 16:16
DX: J03.00 Acute streptococcal tonsillitis, unspecified (principal)
CPT/HCPCS: 70491; 80048; 83605; 85025; 87631; 87880; 93005; 96361; 96374; 99284; J1885; Q9967

== ENCOUNTER → 2023-05-03 | Outpatient (CLI) | payer OTHER, SELFPAY ==
[~2023-05-03] MED LIST changes: +AMOX500C PO; +GASTROGRAFIN SOLUTION 30ML As Ordered ONE; +IBUP-1022 PO; +ISOVUE-370 76% 100ML VIAL As Ordered ONE
== END ==
LOC: M RAD 15:00
PROVIDERS: ATTEND Surgery
DX: R19.8 Other specified symptoms and signs involving the digestive system and abdomen (principal)
CPT/HCPCS: 74177; Q9963; Q9967

== ENCOUNTER 2023-07-30 13:55 | Emergency (ER) | payer OTHER ==
[~2023-07-30] VITALS: Ht 180.3 cm; Wt 137.9 kg
[~2023-07-30 13:55] MED LIST changes: -GASTROGRAFIN SOLUTION 30ML As Ordered ONE; -ISOVUE-370 76% 100ML VIAL As Ordered ONE
[2023-07-30 14:43] LABS: BASO # 0.1 10^3/uL (0.0-0.2); BASO % 0.4 % (0.0-1.0); EOS # 0.2 10^3/uL (0.0-0.5); EOS % 1.8 % (0.0-3.0); HEMATOCRIT 40.3 % (42.0-52.0); HEMOGLOBIN 14.1 g/dl (13.5-17.5); LYMPH # 1.9 10^3/uL (1.5-5.0); LYMPH % 16.6 % (24.0-44.0); MEAN CORPUSCULAR HEMOGLOBIN 30.3 pg (27.0-33.0); MEAN CORPUSCULAR VOLUME 86.7 fl (80.0-96.0); MONO # 0.6 10^3/uL (0.0-0.8); MONO % 5.3 % (2.0-8.0); NEUTROPHILS # 8.8 10^3/uL (1.5-8.5); NEUTROPHILS % 75.6 % (36.0-66.0); RED BLOOD COUNT 4.65 10^6/uL (4.30-6.10); WHITE BLOOD COUNT 11.7 10^3/uL (4.0-10.0)
[2023-07-30 14:51] LABS: LIPASE 24 U/L (12-53)
[2023-07-30 14:53] LABS: ALBUMIN 3.5 G/DL (3.2-5.2); ALKALINE PHOSPHATASE 96 U/L (46-116); ALT/SGPT 62 U/L (7.0-40); AST/SGOT 40 U/L (<34); BILIRUBIN,DIRECT < 0.1 MG/DL (<0.4); BILIRUBIN,TOTAL 0.3 MG/DL (0.3-1.2); TOTAL PROTEIN 6.7 G/DL (5.7-8.2)
[2023-07-30 14:59] LABS: PLATELET COUNT, AUTOMATED 251 10^3/uL (150-450)
[2023-07-30] MEDS: KETOROLAC 30 MG/ML 1ML VIAL IV ONE (15:17)
[2023-07-30] MEDS: NS 1,000 ML IV ONE (15:17)
[2023-07-30] MEDS ORDERED: ACET300T48 PO (18:35)
[2023-07-30 19:10] VITALS: BP 134/79; TEMP 99.6; O2SAT 99
[2023-07-30] MEDS ORDERED: CIPR250T3 PO (19:36)
[2023-07-30] MEDS ORDERED: METR-265 PO (19:37)
[2023-07-30] MEDS: metroNIDAZOLE (FLAGYL) 500MG TABLET PO STA (19:43)
[2023-07-30] MEDS: CIPROFLOXACIN 500MG TABLET PO STA (19:43)
== END 2023-07-30 19:48 | disposition home or self-care (01) ==
LOC: M ED 13:55
DX: K57.32 Diverticulitis of large intestine without perforation or abscess without bleeding (principal)
CPT/HCPCS: 74176; 80047; 80076; 81001; 83690; 85025; 87086; 96361; 96374; 99284; J1885

== ENCOUNTER 2023-10-30 07:00 | Emergency (ER) | payer OTHER ==
[~2023-10-30] VITALS: Ht 180.3 cm; Wt 130.7 kg
[~2023-10-30 07:00] MED LIST changes: +ACET300T48 PO; +CIPR250T3 PO; +METR-265 PO
[2023-10-30 08:46] LABS: BASO # 0.1 10^3/uL (0.0-0.2); BASO % 0.7 % (0.0-1.0); EOS # 0.3 10^3/uL (0.0-0.5); EOS % 3.9 % (0.0-3.0); HEMOGLOBIN 15.1 g/dl (13.5-17.5); LYMPH # 2.7 10^3/uL (1.5-5.0); LYMPH % 35.7 % (24.0-44.0); MEAN CORPUSCULAR HEMOGLOBIN 29.5 pg (27.0-33.0); MEAN CORPUSCULAR HGB CONC 33.6 g/dl (32.0-36.5); MEAN CORPUSCULAR VOLUME 88.1 fl (80.0-96.0); MONO # 0.5 10^3/uL (0.0-0.8); MONO % 6.8 % (2.0-8.0); NEUTROPHILS % 52.8 % (36.0-66.0); PLATELET COUNT, AUTOMATED 293 10^3/uL (150-450); RED BLOOD COUNT 5.11 10^6/uL (4.30-6.10); WHITE BLOOD COUNT 7.6 10^3/uL (4.0-10.0)
[2023-10-30 09:15] LABS: LIPASE 24 U/L (12-53)
[2023-10-30 09:16] LABS: AMYLASE 36 U/L (30-118)
[2023-10-30 09:17] LABS: ALBUMIN 4.1 G/DL (3.2-5.2); ALKALINE PHOSPHATASE 91 U/L (46-116); ALT/SGPT 42 U/L (7.0-40); AST/SGOT 19 U/L (<34); BILIRUBIN,DIRECT 0.1 MG/DL (<0.4); BILIRUBIN,TOTAL 0.4 MG/DL (0.3-1.2); BLOOD UREA NITROGEN 11 MG/DL (9-23); CARBON DIOXIDE LEVEL 29 MMOL/L (20-31); CHLORIDE LEVEL 106 MMOL/L (98-107); CREATININE FOR GFR 0.85 MG/DL (0.70-1.30); GLOMERULAR FILTRATION RATE > 60.0 (>60); GLUCOSE, FASTING 106 MG/DL (60-100); SODIUM LEVEL 141 MMOL/L (136-145); TOTAL PROTEIN 7.1 G/DL (5.7-8.2)
[2023-10-30 14:04] VITALS: BP 136/80; TEMP 96.9; O2SAT 98
== END 2023-10-30 14:05 | disposition home or self-care (01) ==
LOC: M ED 07:00
DX: R10.12 Left upper quadrant pain (principal)

== ENCOUNTER 2024-03-13 02:32 | Emergency (ER) | payer OTHER ==
[~2024-03-13] VITALS: Ht 180.3 cm; Wt 135.3 kg
[2024-03-13] MEDS ORDERED: SERT-141 PO (02:45)
[2024-03-13 03:06] LABS: BASO # 0.1 10^3/uL (0.0-0.2); BASO % 0.7 % (0.0-1.0); EOS # 0.4 10^3/uL (0.0-0.5); HEMATOCRIT 42.9 % (42.0-52.0); HEMOGLOBIN 14.4 g/dl (13.5-17.5); LYMPH # 3.6 10^3/uL (1.5-5.0); LYMPH % 36.8 % (24.0-44.0); MEAN CORPUSCULAR HEMOGLOBIN 29.3 pg (27.0-33.0); MEAN CORPUSCULAR HGB CONC 33.6 g/dl (32.0-36.5); MEAN CORPUSCULAR VOLUME 87.4 fl (80.0-96.0); MONO # 0.7 10^3/uL (0.0-0.8); MONO % 7.6 % (2.0-8.0); NEUTROPHILS # 4.9 10^3/uL (1.5-8.5); NEUTROPHILS % 50.6 % (36.0-66.0); PLATELET COUNT, AUTOMATED 277 10^3/uL (150-450); RED BLOOD COUNT 4.91 10^6/uL (4.30-6.10); WHITE BLOOD COUNT 9.7 10^3/uL (4.0-10.0)
[2024-03-13 03:35] LABS: BLOOD UREA NITROGEN 16 MG/DL (9-23); CALCIUM LEVEL 8.6 MG/DL (8.5-10.1); CARBON DIOXIDE LEVEL 28 MMOL/L (20-31); CHLORIDE LEVEL 105 MMOL/L (98-107); CK-MB VALUE MASS 1.9 NG/ML (<3.6); CPK CREATINE PHOSPHOKINASE 209 U/L (46-171); CREATININE FOR GFR 0.83 MG/DL (0.70-1.30); GLOMERULAR FILTRATION RATE > 60.0 (>60); GLUCOSE, FASTING 114 MG/DL (60-100); SODIUM LEVEL 138 MMOL/L (136-145)
[2024-03-13 09:09] VITALS: TEMP 98.5
[2024-03-13] MEDS ORDERED: ISOVUE-370 76% 100ML VIAL As Ordered ONE (10:49)
[2024-03-13] MEDS ORDERED: ALB2.5NEB INH (12:07)
[2024-03-13 12:22] VITALS: BP 139/80; O2SAT 100
== END 2024-03-13 12:23 | disposition home or self-care (01) ==
LOC: M ED 02:32
DX: R05.9 Cough, unspecified (principal); R06.02 Shortness of breath
CPT/HCPCS: 71045; 71275; 80048; 82550; 82553; 84484; 85025; 87486; 87581; 87633; 87798; 93005; 99284; Q9967

== ENCOUNTER 2024-12-30 09:02 | Emergency (ER) | payer OTHER, SELFPAY ==
[~2024-12-30] VITALS: Ht 180.3 cm; Wt 126.6 kg
[~2024-12-30 09:02] MED LIST changes: +ALB2.5NEB INH; -IBUP-1022 PO; +IBUP600T42 PO; +SERT-141 PO
[2024-12-30] MEDS ORDERED: CHLORASEPTIC SPRAY MT PRN (10:25)
[2024-12-30] MEDS ORDERED: AMOX500C PO (11:07)
[2024-12-30] MEDS: ACETAMINOPHEN 500 MG TAB PO ONE (11:17)
[2024-12-30 11:39] VITALS: BP 143/83; TEMP 96.9; O2SAT 98
[2024-12-30] MEDS: AMOXICILLIN 500 MG CAP PO ONE (12:01)
== END 2024-12-30 12:05 | disposition home or self-care (01) ==
LOC: M ED 09:02
DX: J02.0 Streptococcal pharyngitis (principal); Z79.899 Other long term (current) drug therapy